=== PATIENT | male | born 1935 | race Caucasian/White ===

== ENCOUNTER 2023-08-30 14:38 | Inpatient (IN) ==
[2023-08-30] MEDS ORDERED: ATROPINE SULFATE 0.1 MG/ML 5ML SYR IV ONE (15:30)
[2023-08-30] MEDS ORDERED: SODIUM CHLORIDE 0.9% 500 ML IV ONE (15:33)
[2023-08-30] MEDS ORDERED: ATROPINE SULFATE 0.1 MG/ML 10ML SYR IV STA (15:33)
--- NOTE | 2023-08-30 15:36 | Emergency Department Note ---
Impression & Plan Syncope, Bradycardia, Atrial fibrillation, SOB (shortness of breath), Fluid overload ED Provider Note NAME: PENNY SORIA AGE: 87 SEX: M : 1935 ARRIVES VIA: Walk-In INFORMANT: [Patient][family] ED PROVIDER(S): [Naman Ochoa MD] CHIEF COMPLAINT: Shortness of breath HISTORY OF PRESENT ILLNESS: The patient is an 87-year-old male who presents with increasing dyspnea over the last 6 months. He does not typically wear oxygen. He has been quite a bit more short of breath the last few days and the family has noticed some pedal edema. Today, he was sitting in the chair and seemed to doze off. The family noticed him shaking as if he was having a seizure. They shook him and he quickly awoke and as per the family, he was confused for a bit after. The patient has no seizure history. He denies any issues with his cardiac rhythm. The patient states that he is on metoprolol, his dose has not changed for a long time. The patient admits to the shortness of breath. He has felt fluttering in his chest from time to time and he has noticed his heart rate has been low on his pulse ox meter. He has not had chest pain. PMHx/PSHx/Social Hx: See Below PHYSICAL EXAM: GENERAL: Patient is in no acute distress. HEENT: No acute trauma, normocephalic atraumatic, mucous membranes moist, no nasal congestion. NECK: No stridor, no adenopathy, no meningismus, trachea is midline. LUNGS: Clear to auscultation bilaterally, no wheeze, no rhonchi, breath sounds equal. HEART: Quite bradycardic and irregular, 2/6 systolic murmur heard. ABDOMEN: Soft, nontender, no peritonitis. EXTREMITIES: No cyanosis, full range of motion of all the joints without pain or difficulty. Moderate bilateral pedal edema NEUROLOGIC: Oriented x 3, no acute motor or sensory deficits, no focal weakness. SKIN: No jaundice, no diaphoresis. Somewhat pale. DIFFERENTIAL DIAGNOSIS: Dysrhythmia, medication reaction, AK, electrolyte imbalance, CHF, pneumonia, anemia, among others. EMERGENCY DEPARTMENT PROCEDURES: MEDICAL DECISION MAKING: There was no leukocytosis. An anemia was noted with a hemoglobin of 11.9. PTT was elevated at 1.5. INR was normal. No renal failure or significant electrolyte abnormality. No concerning liver enzyme elevation. No evidence for pancreatitis. The patient appeared to be in a euthyroid state. BNP was elevated at over 700, consistent with fluid overload. Chest x-ray shows potential mild fluid overload/CHF, no pneumonia. On exam, the patient was significantly bradycardic with episodes of asystole. The patient was aggressively managed. He was moved to a large trauma room. He was given 0.5 mg of IV atropine with significant improvement in the heart rate. Heart rate was noted to be in the 70s to 80s after atropine. ECG shows what appears to be atrial fibrillation, no obvious ischemia. I did speak with Dr. Gonzales of cardiology as well as Dr. Spears of interventional cardiology. Temporary pacemaker placement was discussed but felt unnecessary as he had responded to IV medication. Patient was given 20 mg of IV Lasix to help with his fluid overload. I did speak with the patient and family, I spoke with case management, I did speak with Dr. Ordaz of the ICU. The on-call hospitalist has been consulted. Hopefully, the patient's metoprolol dosing has led to the severe bradycardia and asystole. He may require a pacemaker though if things do not improve with holding the beta-audra therapy. I do not think the patient had a seizure earlier today. I suspect he had a syncopal spell from his severe bradycardia/asystole. Prior/Outside records/notes reviewed: Cardiology note from 01/16/2023 discussing his known coronary artery disease and high cholesterol. Plan was outlined. ECG per my interpretation: Indication was possible seizure. The ECG shows what appears to be atrial fibrillation with diffuse nonspecific ST change. The rate is 60. There is no ST elevation, no PVCs. The QTc is 436. Continuous Cardiac Monitoring per my interpretation: An order was placed for continuous cardiac monitoring. The monitor shows a rate of 78 with atrial fibrillation. Imaging/x-ray results per my interpretation: Chest x-ray shows kyphosis. There was no obvious pneumonia. Some mild fluid overload was thought possible Chronic Medical/Social conditions affecting care: Advanced age. Care/Management discussed with: ICU-Dr. Ordaz, case management and the on-call hospitalist. Dr. Gonzales and Dr. Spears of cardiology. Level of care consideration(s): After review of the information above and other included data: --I believe the patient requires escalation of care to admission Critical Care Note: I have personally spent 55 minutes of critical care time in the direct management of this patient. This includes bedside care, interpretation of diagnostic studies, and testing, discussion with consultants, patient, and family members, and other required patient management activities. This 55 minutes is in excess of all separately billable procedures. DISPOSITION: Admission Past Med/Surg History Medical History Prostate cancer Social History Smoking Status: Never smoker Hx Alcohol Use: Yes Preferred Language: Faroese Feels Safe at Home: Yes Allergies Allergies Allergy/AdvReac Type Severity Reaction Status Date / Time No Known Allergies Allergy Verified 08/30/23 16:35 Home Meds Home Medications Medication Instructions Recorded Confirmed atorvastatin 20 mg tablet 20 mg PO HS 01/16/23 08/30/23 cholecalciferol (vitamin D3) 50 50 mcg PO DAILY 01/16/23 08/30/23 mcg (2,000 unit) capsule finasteride 5 mg tablet 5 mg PO DAILY 01/16/23 08/30/23 lisinopril 10 mg tablet 10 mg PO HS 01/16/23 08/30/23 metoprolol succinate 50 mg 50 mg PO HS 01/16/23 08/30/23 tablet,extended release 24 hr tamsulosin 0.4 mg capsule 0.4 mg PO DAILY 01/16/23 08/30/23 Results & Data (ED) Vital Signs Vital Signs - 24 hr 08/30/23 14:41 08/30/23 14:50 08/30/23 15:16 Temperature 36.4 C L Temperature Source Oral Pulse Rate 65 45 L Pulse Rate from SpO2 Sensor 49 L Respiratory Rate 17 13 Respiratory Effort / Characteristics Non-Labored Spontaneous Respiratory Depth Normal Blood Pressure 137/70 Blood Pressure Mean 92 Blood Pressure Position Sitting Pulse Oximetry 88 L 94 93 Oxygen Delivery Method Room Air Nasal Cannula Oxygen Flow Rate 4 Sepsis Recent Fever Within 48 Hours No Sepsis New/Unexplained Change in Mental Status No Sepsis Action Taken by Nursing No Action Required 08/30/23 15:19 08/30/23 15:21 08/30/23 15:21 Temperature Temperature Source Pulse Rate 53 L 41 L Pulse Rate from SpO2 Sensor 46 L Respiratory Rate 9 L Respiratory Effort / Characteristics Respiratory Depth Blood Pressure 136/90 Blood Pressure Mean 105 Blood Pressure Position Pulse Oximetry 96 Oxygen Delivery Method Oxygen Flow Rate 4 Sepsis Recent Fever Within 48 Hours Sepsis New/Unexplained Change in Mental Status Sepsis Action Taken by Nursing 08/30/23 15:36 08/30/23 15:36 08/30/23 15:40 Temperature Temperature Source Pulse Rate 102 H 96 H 99 H Pulse Rate from SpO2 Sensor Respiratory Rate 29 H 23 Respiratory Effort / Characteristics Respiratory Depth Blood Pressure 137/96 Blood Pressure Mean 109 Blood Pressure Position Pulse Oximetry Oxygen Delivery Method Nasal Cannula Oxygen Flow Rate 4 Sepsis Recent Fever Within 48 Hours Sepsis New/Unexplained Change in Mental Status Sepsis Action Taken by Nursing 08/30/23 15:45 08/30/23 15:47 08/30/23 16:00 Temperature Temperature Source Pulse Rate 88 71 Pulse Rate from SpO2 Sensor 86 74 Respiratory Rate 25 H 27 H Respiratory Effort / Characteristics Respiratory Depth Blood Pressure Blood Pressure Mean Blood Pressure Position Pulse Oximetry 97 97 95 Oxygen Delivery Method Nasal Cannula Oxygen Flow Rate Sepsis Recent Fever Within 48 Hours Sepsis New/Unexplained Change in Mental Status Sepsis Action Taken by Nursing 08/30/23 16:01 08/30/23 16:15 08/30/23 16:30 Temperature Temperature Source Pulse Rate 68 81 75 Pulse Rate from SpO2 Sensor 74 78 77 Respiratory Rate 20 20 23 Respiratory Effort / Characteristics Respiratory Depth Blood Pressure 130/74 128/68 143/82 H Blood Pressure Mean 92 88 102 Blood Pressure Position Pulse Oximetry 98 97 99 Oxygen Delivery Method Nasal Cannula Nasal Cannula Oxygen Flow Rate 4 4 Sepsis Recent Fever Within 48 Hours Sepsis New/Unexplained Change in Mental Status Sepsis Action Taken by Nursing 08/30/23 16:45 08/30/23 17:00 08/30/23 17:15 Temperature Temperature Source Pulse Rate 70 71 69 Pulse Rate from SpO2 Sensor 75 65 Respiratory Rate 32 H 26 H 21 Respiratory Effort / Characteristics Respiratory Depth Blood Pressure 158/79 H Blood Pressure Mean 105 Blood Pressure Position Pulse Oximetry 96 94 Oxygen Delivery Method Nasal Cannula Oxygen Flow Rate 3 Sepsis Recent Fever Within 48 Hours Sepsis New/Unexplained Change in Mental Status Sepsis Action Taken by Nursing 08/30/23 17:15 08/30/23 17:21 08/30/23 17:30 Temperature Temperature Source Pulse Rate 65 52 L Pulse Rate from SpO2 Sensor 56 L Respiratory Rate 28 H Respiratory Effort / Characteristics Respiratory Depth Blood Pressure 144/83 H Blood Pressure Mean 104 Blood Pressure Position Pulse Oximetry 94 Oxygen Delivery Method Oxygen Flow Rate Sepsis Recent Fever Within 48 Hours Sepsis New/Unexplained Change in Mental Status Sepsis Action Taken by Nursing 08/30/23 17:38 08/30/23 17:38 08/30/23 17:45 Temperature Temperature Source Pulse Rate 57 L 58 L Pulse Rate from SpO2 Sensor 54 L 64 Respiratory Rate 23 23 Respiratory Effort / Characteristics Respiratory Depth Blood Pressure 128/74 141/88 H Blood Pressure Mean 104 105 Blood Pressure Position Pulse Oximetry 94 95 Oxygen Delivery Method Oxygen Flow Rate Sepsis Recent Fever Within 48 Hours Sepsis New/Unexplained Change in Mental Status Sepsis Action Taken by Nursing 08/30/23 17:55 08/30/23 18:00 08/30/23 18:01 Temperature Temperature Source Pulse Rate 56 L 61 67 Pulse Rate from SpO2 Sensor 59 L 61 65 Respiratory Rate 24 25 H 26 H Respiratory Effort / Characteristics Respiratory Depth Blood Pressure 141/88 H 135/74 Blood Pressure Mean 105 94 Blood Pressure Position Pulse Oximetry 93 96 95 Oxygen Delivery Method Oxygen Flow Rate Sepsis Recent Fever Within 48 Hours Sepsis New/Unexplained Change in Mental Status Sepsis Action Taken by Nursing 08/30/23 18:15 08/30/23 18:30 Temperature Temperature Source Pulse Rate 57 L 41 L Pulse Rate from SpO2 Sensor 55 L 44 L Respiratory Rate 25 H 21 Respiratory Effort / Characteristics Respiratory Depth Blood Pressure 138/82 131/72 Blood Pressure Mean 100 91 Blood Pressure Position Pulse Oximetry 99 97 Oxygen Delivery Method Nasal Cannula Oxygen Flow Rate 3 Sepsis Recent Fever Within 48 Hours Sepsis New/Unexplained Change in Mental Status Sepsis Action Taken by Custodial Medications Current Medication List: was personally reviewed by me Laboratory Data Attestation: I reviewed the patient's lab results. 08/30/23 15:02 08/30/23 15:02 Lab Results 08/30/23 Range/Units 15:02 WBC 9.10 (4.8-10.8) K/ul RBC 3.89 L (4.70-6.10) M/uL Hgb 11.9 L (14.0-18.0) g/dl Hct 36.6 L (42.0-52.0) % MCV 94.1 (80.0-100.0) fL MCH 30.6 (25.0-34.0) pg MCHC 32.5 (32.0-36.0) g/dL RDW Std Deviation 54.7 H (36.4-46.3) fL RDW Coeff of Alfonso 16.1 H (11.5-14.5) % Plt Count 213 (130-400) K/uL MPV 9.9 (9.4-12.4) fL Immature Gran % (Auto) 0.8 % Neut % (Auto) 82.4 % Lymph % (Auto) 7.0 % [place] % (Auto) 9.3 % Eos % (Auto) 0.3 % Baso % (Auto) 0.2 % Neut # (Auto) 7.49 H (1.40-6.50) K/uL Lymph # (Auto) 0.64 L (1.20-3.40) K/uL [place] # (Auto) 0.85 H (0.11-0.59) K/uL Eos # (Auto) 0.03 (0.00-0.50) K/uL Baso # (Auto) 0.02 (0.00-0.20) K/uL Immature Gran # (Auto) 0.07 (0.01-0.20) K/uL PT 11.6 (9.0-12.0) Seconds INR 1.1 (0.9-1.1) APTT 42.2 H* (21.0-31.0) Seconds PTT Ratio 1.5 Sodium 137 (136-145) mmol/L Potassium 4.2 (3.5-5.1) mmol/L Chloride 99 (98-107) mmol/L Carbon Dioxide 34 H (21-32) mmol/L Anion Gap 4 (3-11) BUN 25 H (6-23) mg/dl Creatinine 0.62 (0.6-1.4) mg/dl Est Cr Clr Drug Dosing Not Reportable Est GFR ( Amer) 102.7 ml/min Est GFR (Non-Af Amer) 88.6 ml/min BUN/Creatinine Ratio 40.3 H (10-20) Glucose 108 H (70-99(Fasting)) mg/dl Calcium 9.9 (8.6-10.3) mg/dl Magnesium 1.8 (1.7-2.4) mg/dl Total Bilirubin 0.5 (0.2-1.0) mg/dl AST 11 L (13-39) U/L ALT 8 (7-52) U/L Alkaline Phosphatase 60 (34-104) U/L Troponin I High Sens 17.9 (0-20) pg/ml B-Natriuretic Peptide 734 H (0-100) pg/ml Total Protein 6.8 (6.0-8.3) gm/dl Albumin 3.8 (3.4-5.0) gm/dl Globulin 3.0 (2.5-4.0) gm/dl Albumin/Globulin Ratio 1.3 (0.9-2) Lipase 10 L (11-82) U/L TSH 1.293 (0.300-4.500) uIu/ml Administered Medications Dobutamine HCl/Dextrose (Dobutamine / D5w) 500 mg in 250 mls @ 6.698 mls/hr IV .Q24H [facility]; Protocol Stop: 09/29/23 15:59 Last Titration: 08/30/23 17:20 Dose: 0 mcg/kg/min, 0 mls/hr Documented By: FLAKITA Co-signed By: ACC Admin: 08/30/23 16:05 Dose: 2.5 mcg/kg/min, 6.7 mls/hr Documented By: FLAKITA Co-signed By: SLB Discontinued Medications Atropine Sulfate (Atropine Sulfate 0.1 Mg/Ml 5ml Syr) Confirm Administered Dose 0.5 mg IV .STK-MED ONE Stop: 08/30/23 15:31 Last Admin: 08/30/23 15:53 Dose: Not Given Documented By: FLAKITA Atropine Sulfate (Atropine Sulfate 0.1 Mg/Ml 10ml Syr) 0.5 mg IV NOW STA Stop: 08/30/23 15:34 Last Admin: 08/30/23 15:35 Dose: 0.5 mg Documented By: FLAKITA Sodium Chloride (Nss) 500 mls @ 999 mls/hr IV .Q31M ONE Stop: 08/30/23 16:03 Last Admin: 08/30/23 17:28 Dose: Not Given Documented By: FLAKITA Magnesium Oxide (Magnesium Oxide 400 Mg Tab) 400 mg PO ONE ONE Stop: 08/30/23 18:08 Last Admin: 08/30/23 18:37 Dose: 400 mg Documented By: FLAKITA Imaging Data Radiologist's Impression: Chest X-Ray 08/30/23 15:33 XR chest 1V portable CLINICAL HISTORY: Chest pain, nonspecific TECHNIQUE: Single frontal radiograph of the chest was obtained. Comparison: None available at the time of this dictation. FINDINGS: No lines and tubes are seen. Cardiomegaly is noted. The aortic arch is calcified. Prominence and cephalization of the vasculature is seen. Lungs are underinflated. No evidence of pleural effusion or pneumothorax. IMPRESSION: Cardiomegaly and mild pulmonary edema. ACT 112: Negative or not required by law. Electronically signed by: Alberto Villalba M.D. 08/30/2023 4:26 PM Discharge Plan Visit Data Chief Complaint: Shortness of Breath/Dyspnea Stated Complaint: SEIZURE, SOB ED Provider: Naman Ochoa Discharge Problem: Syncope, Bradycardia, Atrial fibrillation, SOB (shortness of breath), Fluid overload Patient Disposition: Admitted As Inpatient Condition: Serious Forms Stand Alone Forms: [address] Prescriptions Prescriptions: No Action finasteride 5 mg tablet 5 mg PO DAILY cholecalciferol (vitamin D3) 50 mcg (2,000 unit) capsule 50 mcg PO DAILY metoprolol succinate 50 mg tablet extended release 24 hr 50 mg PO HS lisinopril 10 mg tablet 10 mg PO HS atorvastatin 20 mg tablet 20 mg PO HS tamsulosin 0.4 mg capsule 0.4 mg PO DAILY Referrals Referrals: James Chapman DO [Primary Care Provider] - Discharge Problem: Syncope Qualifiers: Syncope type: unspecified Qualified Code(s): R55 - Syncope and collapse Atrial fibrillation Qualifiers: Atrial fibrillation type: unspecified Qualified Code(s): I48.91 - Unspecified atrial fibrillation Fluid overload Qualifiers: Hypervolemia type: unspecified Qualified Code(s): E87.70 - Fluid overload, unspecified
[2023-08-30 15:52] LABS: Basophils # (auto) 0.02 K/uL (0.00-0.20); Basophils % (auto) 0.2 %; Eosinophils # (auto) 0.03 K/uL (0.00-0.50); Eosinophils % (auto) 0.3 %; Hematocrit (blood only) 36.6 % (42.0-52.0); Hemoglobin 11.9 g/dl (14.0-18.0); Immature Granulocytes # (auto) 0.07 K/uL (0.01-0.20); Immature Granulocytes % (auto) 0.8 %; Lymphocytes # (auto) 0.64 K/uL (1.20-3.40); Mean Corpuscular Hemoglobin 30.6 pg (25.0-34.0); Mean Corpuscular Hgb Conc 32.5 g/dL (32.0-36.0); Mean Corpuscular Volume 94.1 fL (80.0-100.0); Mean Platelet Volume 9.9 fL (9.4-12.4); Monocytes # (auto) 0.85 K/uL (0.11-0.59); Monocytes % (auto) 9.3 %; Neutrophils # (auto) 7.49 K/uL (1.40-6.50); Neutrophils % (auto) 82.4 %; Platelet Count 213 K/uL (130-400); RDW Coefficient of Variation 16.1 % (11.5-14.5); RDW Standard Deviation 54.7 fL (36.4-46.3); Red Blood Count 3.89 M/uL (4.70-6.10)
[2023-08-30] MEDS ORDERED: STAT IV Infusion **Titration per Protocol STA (15:54)
[2023-08-30 15:58] LABS: Alanine Aminotransferase 8 U/L (7-52); Albumin Globulin Ratio 1.3 (0.9-2); Albumin Level 3.8 gm/dl (3.4-5.0); Alkaline Phosphatase 60 U/L (34-104); Anion Gap 4 (3-11); Aspartate Aminotransferase 11 U/L (13-39); BUN Creatinine Ratio 40.3 (10-20); Bilirubin,Total 0.5 mg/dl (0.2-1.0); Blood Urea Nitrogen 25 mg/dl (6-23); Calcium 9.9 mg/dl (8.6-10.3); Carbon Dioxide 34 mmol/L (21-32); Chloride 99 mmol/L (98-107); Est GFR (African American) 102.7 ml/min; Est GFR (Non-African American) 88.6 ml/min; Glucose 108 mg/dl (70-99(Fasting)); Lipase 10 U/L (11-82); Magnesium 1.8 mg/dl (1.7-2.4); Potassium 4.2 mmol/L (3.5-5.1); Sodium 137 mmol/L (136-145); Total Protein 6.8 gm/dl (6.0-8.3)
[2023-08-30] MEDS ORDERED: DOBUTamine / D5W 500mg/250mL Premixed Bag IV PRN (16:00)
[2023-08-30] MEDS ORDERED: DOBUTamine / D5W 500 MG/250 ML BAG IV SCH (16:00)
[2023-08-30 16:03] LABS: Troponin I High Sensitivity 17.9 pg/ml (0-20)
[2023-08-30 16:12] LABS: Thyroid Stimulating Hormone 1.293 uIu/ml (0.300-4.500)
--- NOTE | 2023-08-30 16:27 | XRay Report ---
XR chest 1V portable CLINICAL HISTORY: Chest pain, nonspecific TECHNIQUE: Single frontal radiograph of the chest was obtained. Comparison: None available at the time of this dictation. FINDINGS: No lines and tubes are seen. Cardiomegaly is noted. The aortic arch is calcified. Prominence and ceph alization of the vasculature is seen. Lungs are underinflated. No evidence of pleural effusion or pne umothorax. IMPRESSION: Cardiomegaly and mild pulmonary edema. ACT 112: Negative or not required by law. Electronically signed by: Alberto Villalba M.D. 08/30/2023 4:26 PM
[2023-08-30 16:31] LABS: INR 1.1 (0.9-1.1); Partial Thromboplastin Ratio 1.5; Prothrombin Time 11.6 Seconds (9.0-12.0)
[2023-08-30 16:33] LABS: Partial Thromboplastin Time 42.2 Seconds (21.0-31.0)
[2023-08-30] MEDS ORDERED: FUROSEMIDE INJ 20 MG/2 ML VIAL IV ONE ×2 (16:57→20:15)
--- NOTE | 2023-08-30 17:55 | History & Physical Report ---
Date of Service August 30, 2023 Assessment & Plan (1) Symptomatic bradycardia: Plan: Symptomatic bradycardia Patient with 1 episode of syncope at home, 1 episode of unresponsiveness/syncope while in bed in the ER with heart rate less than 40. 5-second pause while in ER. Received atropine x 1 and was started on dobutamine drip. Family initially concern for seizure-like activity due to shaking, patient improved and was back to normal mentation and less than a minute following his home episode. Suspect this was from bradycardia, no incontinence/tongue biting/postictal state Cardiology consulted. Beta-audra held. Patient with preserved chronotropic response while in the ER. Recommended for beta-audra washout and hoping to avoid pacer/temp wire. Initially started on dobutamine in the ER however underwent an episode of nonsustained V. tach. This was discontinued. Admitted to the ICU, pacer pads in place. A-fib anticoagulation held for potential pacer wire placement. Isoproterenol/dopamine pharmacologic options; however also likely to provoke arrhythmia. Optimize potassium 4.0/magnesium 2.0 - trop wnl. EKG afib w/o ischemic change. Lyme pending (2) S/P CABG (coronary artery bypass graft): Plan: Metoprolol held No stents, patient is not on aspirin at baseline Lisinopril continued Denies hx CHF. BNP 734, 1+ edema. No echo available for review. Echo or dered. Lasix x1 ordered (3) Postoperative atrial fibrillation: Plan: Previously on warfarin for 6 months after his bypass. No recurrence, subsequently taken off of anticoagulation. Patient is in A-fib on admission. Heparin GTT ordered for prophylaxis. (4) Hypercholesterolemia: Plan: Continue atorvastatin (5) Hypertension: Plan: Normotensive. Lisinopril temporarily held. (6) Prostate cancer: Plan: Bladder scan every shift Plan DVT prophylaxis: Heparinized Diet: N.p.o. Disposition: ICU CODE STATUS: DNR/ History of Present Illness Primary Care Provider: DO Joni Dumont is an 87-year-old male with a past medical history of hypertension, CAD s/p CABG, hyperlipidemia, postoperative atrial fibrillation without recurrence not on anticoagulation who presents to the emergency department with progressive dyspnea over several months and who was found in a chair and appeared confused by family upon awakening. He was brought to the ER and was found to have symptomatic bradycardia was given a dose of atropine and subsequently started on a dobutamine drip. This was discontinued when patient had an episode of nonsustained ventricular tachycardia Joni is seen at the bedside. He reports he is at 2 episodes of passing out, 1 at home and 1 in the ER. His family initially thought this was a seizure he does not have history of seizure. They note he was sitting when he suddenly became unresponsive very pale and had extremity shaking. He did not have incontinence. This lasted for about a minute. He then woke up and was mentating normally and less than a minute. Did not have a prolonged episode of confusion. Did not have tongue biting. He has had no chest pain or chest pressure. He reports he has not passed out outside of this. He has had some mild shortness of breath which is improved at time of bedside assessment. He reports he has scoliosis so he has difficulty laying flat and does sometimes get short of breath when laying flat. He denies a history of heart failure, but did have triple bypass in 2015 in [place]. He denies history of stents. He does not take aspirin or blood thinners. 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 He reports he was diagnosed with myasthenia gravis at 1 point, but on follow-up was told that this was either an incorrect diagnosis or in remission and has not needed any treatment for this. He does not notice that repetitive/actions cause fatigue or weakness, has not had weakness chewing, or visual disturbance. Does not have any superior gaze fatiguing While in the ER patient had a 5-second pause. He received atropine and was subsequently started on dobutamine. This improved his heart rate from the 30s to 7080s, but he had a run of nonsustained ventricular tachycardia. Patient was asymptomatic and normotensive during this. Dobutamine was discontinued. While at bedside subsequent on conversation he does have chronotropic response but drops to heart rate of 50s. Cardiology updated, beta-audra held. Patient reports that he would want procedures including a pacemaker or temporary pacing for treatment. He would be okay with defibrillation if he were to return to ventricular tachycardia, but in the event of a complete cardiac arrest he reports he would not want chest compressions or intubation and want to be allowed to pass and notes he also has an advanced directive consistent with this which list DNR/DNI. Family in agreement with this and will continue DNR/DNI. They are aware that he is at a risk of arrhythmia overnight, and that ventricular tachycardia which had occurred earlier with his dobutamine could be life-threatening or fatal. Medical History: Reviewed Medications: Reviewed Surgical History: Reviewed Family history: Reviewed Allergies: Reviewed Social History: Denies tobacco/alcohol Code Status: DNR/DNI Allergies Allergy/AdvReac Type Severity Reaction Status Date / Time No Known Allergies Allergy Verified 08/30/23 16:35 Home Medications Medication Instructions Recorded Confirmed Type atorvastatin 20 mg tablet 20 mg PO HS 01/16/23 08/30/23 History cholecalciferol (vitamin D3) 50 50 mcg PO DAILY 01/16/23 08/30/23 History mcg (2,000 unit) capsule finasteride 5 mg tablet 5 mg PO DAILY 01/16/23 08/30/23 History lisinopril 10 mg tablet 10 mg PO HS 01/16/23 08/30/23 History metoprolol succinate 50 mg 50 mg PO HS 01/16/23 08/30/23 History tablet,extended release 24 hr tamsulosin 0.4 mg capsule 0.4 mg PO DAILY 01/16/23 08/30/23 History Past Med/Surg History Medical History (Updated 08/31/23 @ 10:41 by Jesus Tran MD) Atrial fibrillation Postoperative atrial fibrillation Hypercholesterolemia Hypertension CAD (coronary artery disease) Basal cell carcinoma of skin of nose Myasthenia gravis without (acute) exacerbation Essential (primary) hypertension Atherosclerosis of coronary artery bypass graft(s), unspecified, with other forms of angina pectoris Benign prostatic hyperplasia with lower urinary tract symptoms Prostate cancer Surgical History (Updated 08/31/23 @ 10:41 by Jesus Tran MD) S/P CABG (coronary artery bypass graft) Social History Smoking Status: Never smoker Hx Alcohol Use: Yes Alcohol type: wine Hx Substance Use: No Preferred Language: Namibian Communication Ability: Effective Inside Sales Specialist Required: No Beliefs That Will Affect Care: None Current Living Situation: Spouse Feels Safe at Home: Yes Safety Concerns: Feels Safe At This Time Assistive Devices: BiPap and Glasses Assistive Devices Comment: doesnt wear bipap Physical Exam Physical Exam: General: A&Ox3. NAD. Cooperative. HEENT: Atraumatic, normocephalic. Vision/hearing to Pulm: Diminished, bibasilar crackle. Symmetrical chest rise. No increased work of breathing. No respiratory distress. Cardiac: Irregularly irregular, heart rate ranging from 50s to 60s. Does have chronotropic response with increased to 60s/70s when patient moves in bed. Radial pulses intact and symmetrical. Abdominal: Nontender, nondistended, soft. BS present. Extremities: 1+ pitting edema lower extremities bilaterally Results & Data Results & Data Vital Signs (Past 12 Hours) Vital Signs Temp Pulse Resp BP Pulse Ox O2 Del Method O2 Flow Rate 08/30/23 17:21 65 08/30/23 16:45 70 32 H 158/79 H 96 Nasal Cannula 3 08/30/23 16:30 75 23 143/82 H 99 Nasal Cannula 4 08/30/23 16:15 81 20 128/68 97 08/30/23 16:01 68 20 130/74 98 Nasal Cannula 4 08/30/23 16:00 71 27 H 95 08/30/23 15:47 97 Nasal Cannula 08/30/23 15:45 88 25 H 97 08/30/23 15:40 99 H 23 137/96 Nasal Cannula 4 08/30/23 15:36 96 H 29 H 08/30/23 15:36 102 H 08/30/23 15:21 136/90 08/30/23 15:21 41 L 9 L 96 4 08/30/23 15:19 53 L 08/30/23 15:16 45 L 13 93 08/30/23 14:50 94 Nasal Cannula 4 08/30/23 14:41 36.4 C L 65 17 137/70 88 L Room Air PG Care Time/CCT Total # of Minutes Spent Total Time Spent with Patient: Total time spent is greater than 50% in coordination of care (as documented) at patient's floor/unit and/or counseling patient: Coding Level of Care Code 99196 INT INP/OBS CARE 3/75MIN Diagnoses Symptomatic bradycardia R00.1 S/P CABG (coronary artery bypass graft) Z95.1 Postoperative atrial fibrillation I97.89; I48.91 Hypercholesterolemia E78.00 Hypertension I10 Prostate cancer C61
[2023-08-30] MEDS ORDERED: MAGNESIUM OXIDE 400 MG TAB PO ONE (18:07)
[2023-08-30 19:40] LABS: Lyme Ab IgG w/WB Rflx Negative (Negative); Lyme Ab IgM w/WB Rflx Negative (Negative)
--- NOTE | 2023-08-30 19:42 | Critical Care Consultation ---
Date of Consultation August 30, 2023 Assessment & Plan (1) Bradycardia: (2) Atrial fibrillation: (3) CAD (coronary artery disease): (4) Hypertension: (5) Hypercholesterolemia: (6) Prostate cancer: Plan Reason Critically Ill: 87 YOm admitted to ICU following episode of bradycardia in the EMD followed by ventricular ectopy in setting of inotrope therapy. Noted to be in atrial fibrillation on arrival to EMD and ICU. Neuro - syncope/pre-syncope see below, CAM ICU: Negative - obtain head CT scan with reported episode at home and associated with bradycardia evaluate for intracranial process Cardiac - Afib, bradycardia, syncope, HF unspecified, - Patient with history of postoperative afib and is unknown when he went into atrial fibrillation at this time - This is the likely cause for his symptoms of fatigue, dyspnea, and evidence of heart failure with peripheral edema and pulmonary congestion - currently rate controlled- however with his bradycardia will hold his metoprolol - Initiate heparin infusion for afib- once procedure need/evaluation is completed consider [facility] anticoagulation choice - ECHO in morning For his Bradycardia- hold metoprolol as above, there is no evidence of renal failure or acidosis so this likely not a BRASH syndrome - lyme is pending - but history makes this unlikely as well - follow for symptomatic bradycardia or other arrhythmias- he is compensated currently with his blood pressure- so again would avoid treating hypertension at this time- hold SIMA - if agent needed for symptomatic ana and depending on severity- consider isoproterenol and is severe epinephrine with TPPM available - This also is most likely as well to be cause of his syncope/pre-syncope HF unspecified - Currently appears to be in decompensated biventricular failure with peripheral edema and pulmonary edema- likely secondary to poor tolerance of atria fibrillation and possibly exacerbated by bradycardia - Diurese as hemodynamics allow- BNP 743 on admission - ECHO in morning evaluate EF and valves as well as estimate RVSP Respiratory - MARCE non-compliant with CPAP, Hypoxia without respiratory failure - MARCE- No records for review or noted therapy- he is with elevated HCO3 at 34 - CPAP/BiPAP at night will be offered - Hypoxia- Likely secondary to fluid volume status and cardiac rythm- treat underlying cause GI - No acute need - Low sodium heart healthy diet RENAL/LYTES - No acute needs - Follow renal function and electrolytes - ICU electrolyte protocol - Prostate Cancer history - Has straight cath at home for years, however reports that since adding Proscar and Flomax that this has helped- reports not needing to cath at home for >1month - Attempted to place fuentes catheter- unable to pass - making possibility of possible stricture- penis pump is deflated - he is currently voiding and with residual bladder scan of ~100ml- consider urology consultation ENDO - No acute need - ICU hyperglycemic protocol- Goal BG <180mg/dl - TSH 1.2 HEME - No acute needs ID - No current concern for infectious etiology LINES/IV ACCESS - PIV, Continue use of these lines DVT PROPHYLAXIS - SCDs, Heparin infusion DISPO: ICU until hemodynamics and rhythm proven stable without vasoactive intervention I have personally spent 60 minutes of critical care time in the direct management of this patient. This is a life/limb threatening event. This includes time spent evaluating patient, direct bedside care, chart review, placing orders, interpretation of diagnostic studies, discussion with consultants, patient, and family members, as well as other required patient management activities. This time is exclusive of all separately billable procedures, and teaching time and separate from and in addition to any other critical care service time. Thank you for allowing us to participate in the care of this patient. Please refer to my attending physician's documentation for any further recommendations. Supervising Physician Co-Signing Physician Notes Patient seen and examined. EMR reviewed. Discussed with MARTA and ER staff as well as admitting provider. See my PN from 08/31 for full details. History of Present Illness Reason for Consultation: bradycardia Requesting Physician: Jon Maya MD Attending Physician: Jon Maya MD History of Present Illness 87 YOM with medical history of: Scoliosis, MARCE (non-compliant with CPAP), HTN, CAD with CABG x3 (2015), post-operative Afib, HLD, prostate cancer with self cath at home, ? Myasthenia Gravis diagnosis that was not confirmed per report. Patient came to the EMD today for concerns for increased fatigue and dyspnea and feeling as he is off balance and going to pass out. Reports today that while sleeping there was concern of him shaking and being confused post event, but the shaking episode was easily aborted by startling him awake. Patient reports that this has been ongoing for the past couple of weeks, but symptoms have worsened over the past 2 days in regards to fatigue and dyspnea. He notes that his weight has not gone up at home, but does note increased swelling in his lower legs and socks fitting tighter. Denies cough or fevers or any occurrence of angina/chest pain. Is currently on 2LNC and is not on oxygen at home. In the EMD there was note of bradycardia with reported 5 second pause for which he was given 0.5mg IV Atropine with response to HR and was started on Dobutamine, which then reportedly caused ventricular ectopy, this has since been discontinued. It does not appear that the patient was ever hypotensive by documentation and unclear if his mentation changed with this episode, and appears to be in afib on telemetry and on ECG. Overall the patient currently appears to be have some component of decompensated heart failure, without ischemia noted on his ECG which may be related to his atrial fibrilation. Has not received diuretic the rapy at this time although appears to have been ordered. He is with elevated BNP and negative troponin level. TSH is within normal as well. Patient will be admitted to ICU for close telemetry monitoring with vasoactive support or TPPM placement if needed. Intervention Cardiology appears to have been consulted and discussed case by both EMD and Hospitalist service. CODE: DNR/DNI- For pulseless cardiac arrest - Would be OK with aggressive management for bradycardia/hemodynamic instability to include airway management if needed. Allergies Allergy/AdvReac Type Severity Reaction Status Date / Time No Known Allergies Allergy Verified 08/30/23 16:35 Home Medications Medication Instructions Recorded Confirmed Type atorvastatin 20 mg tablet 20 mg PO HS 01/16/23 08/30/23 History cholecalciferol (vitamin D3) 50 50 mcg PO DAILY 01/16/23 08/30/23 History mcg (2,000 unit) capsule finasteride 5 mg tablet 5 mg PO DAILY 01/16/23 08/30/23 History lisinopril 10 mg tablet 10 mg PO HS 01/16/23 08/30/23 History metoprolol succinate 50 mg 50 mg PO HS 01/16/23 08/30/23 History tablet,extended release 24 hr tamsulosin 0.4 mg capsule 0.4 mg PO DAILY 01/16/23 08/30/23 History Patient History Medical History (Updated 08/30/23 @ 19:42 by KAYCE Sims) Atrial fibrillation Postoperative atrial fibrillation Hypercholesterolemia Hypertension CAD (coronary artery disease) Basal cell carcinoma of skin of nose Myasthenia gravis without (acute) exacerbation Essential (primary) hypertension Atherosclerosis of coronary artery bypass graft(s), unspecified, with other forms of angina pectoris Benign prostatic hyperplasia with lower urinary tract symptoms Prostate cancer Surgical History (Updated 08/30/23 @ 19:37 by KAYCE Sims) S/P CABG (coronary artery bypass graft) Social History Smoking Status: Never smoker Hx Alcohol Use: Yes Alcohol type: wine Hx Substance Use: No Preferred Language: Swedish Communication Ability: Effective Amr Physician Required: No Beliefs That Will Affect Care: None Current Living Situation: Spouse Feels Safe at Home: Yes Safety Concerns: Feels Safe At This Time Assistive Devices: BiPap and Glasses Assistive Devices Comment: doesnt wear bipap Review of Systems Review of Systems: REVIEW OF SYSTEMS: Constitutional: No fever, sweats or chills Eyes: No diplopia, no worsening or blurred vision ENT: normal hearing, no trouble swallowing Respiratory: (+) dyspnea with exertion, No cough, sputum, MARCE Cardiovascular: (+) fatigue, peripheral edema, low HR, No chest pain, tightness or palpitations Abdomen: No pain, nausea, vomiting, diarrhea or constipation Musculoskeletal: (+) scoliosis, ambulatory dysfunction, No joint pain, Neurologic: (+) ambulates with rollator, No focal weakness, numbness/tingling, Psychiatric: No anxiety or depression Skin: No rash or itch Physical Exam Physical Exam: PHYSICAL EXAM: General: awake, alert, no apparent distress Head: Normocephalic, atraumatic ENT: PERRLA, EOMI, no pharyngeal exudate, mucous membranes moist Neuro: AAO x 3, speech clear and appropriate, strength intact bilaterally 5/5, sensation intact and equal all extremities and dermatomes, no pronator drift Chest: equal rise and fall of the chest, no accessory muscle use, decreased in bases with fine crackles bilateral bases, Cardiac: Irregular rate and rhythm, telemetry reviewed- afib, skin warm dry, cap refill <3 seconds, peripheral pulses +2 no JVD, no murmur, no JVD, no edema GI: NABS x 4 quadrants, soft, nontender to palpation, no rebound, guarding or tenderness : Spontaneously voiding, no pain, no CVA tenderness, Extremities: Normal inspection, no peripheral edema or erythema, calfs nontender to palpation Psych: Normal mood and affect Skin: no rash or erythema Results & Data Results & Data Vital Signs (Past 12 Hours) Vital Signs Temp Pulse Resp BP Pulse Ox O2 Del Method O2 Flow Rate 08/30/23 18:30 41 L 21 131/72 97 Nasal Cannula 3 08/30/23 18:15 57 L 25 H 138/82 99 08/30/23 18:01 67 26 H 135/74 95 08/30/23 18:00 61 25 H 96 08/30/23 17:55 56 L 24 141/88 H 93 08/30/23 17:45 58 L 23 141/88 H 95 08/30/23 17:38 128/74 08/30/23 17:38 57 L 23 94 08/30/23 17:30 52 L 28 H 94 08/30/23 17:21 65 08/30/23 17:15 144/83 H 08/30/23 17:15 69 21 94 08/30/23 17:00 71 26 H 08/30/23 16:45 70 32 H 158/79 H 96 Nasal Cannula 3 08/30/23 16:30 75 23 143/82 H 99 Nasal Cannula 4 08/30/23 16:15 81 20 128/68 97 08/30/23 16:01 68 20 130/74 98 Nasal Cannula 4 08/30/23 16:00 71 27 H 95 08/30/23 15:47 97 Nasal Cannula 08/30/23 15:45 88 25 H 97 08/30/23 15:40 99 H 23 137/96 Nasal Cannula 4 08/30/23 15:36 96 H 29 H 08/30/23 15:36 102 H 08/30/23 15:21 136/90 08/30/23 15:21 41 L 9 L 96 4 08/30/23 15:19 53 L 08/30/23 15:16 45 L 13 93 08/30/23 14:50 94 Nasal Cannula 4 08/30/23 14:41 36.4 C L 65 17 137/70 88 L Room Air Laboratory Results Abnormal lab results 08/30/23 Range/Units 15:02 RBC 3.89 L (4.70-6.10) M/uL Hgb 11.9 L (14.0-18.0) g/dl Hct 36.6 L (42.0-52.0) % RDW Std Deviation 54.7 H (36.4-46.3) fL RDW Coeff of Alfonso 16.1 H (11.5-14.5) % Neut # (Auto) 7.49 H (1.40-6.50) K/uL Lymph # (Auto) 0.64 L (1.20-3.40) K/uL Taliaferro # (Auto) 0.85 H (0.11-0.59) K/uL APTT 42.2 H* (21.0-31.0) Seconds Carbon Dioxide 34 H (21-32) mmol/L BUN 25 H (6-23) mg/dl BUN/Creatinine Ratio 40.3 H (10-20) Glucose 108 H (70-99(Fasting)) mg/dl AST 11 L (13-39) U/L B-Natriuretic Peptide 734 H (0-100) pg/ml Lipase 10 L (11-82) U/L Medications Administered Home Medications atorvastatin 20 mg tablet 20 mg PO HS 01/16/23 [History Confirmed 08/30/23] cholecalciferol (vitamin D3) 50 mcg (2,000 unit) capsule 50 mcg PO DAILY [History Confirmed 08/30/23] finasteride 5 mg tablet 5 mg PO DAILY 01/16/23 [History Confirmed 08/30/23] lisinopril 10 mg tablet 10 mg PO HS 01/16/23 [History Confirmed 08/30/23] metoprolol succinate 50 mg tablet,extended release 24 hr 50 mg PO HS 01/16/23 [History Confirmed 08/30/23] tamsulosin 0.4 mg capsule 0.4 mg PO DAILY 01/16/23 [History Confirmed 08/30/23] Active Medications Atorvastatin Calcium (Atorvastatin 20 Mg Tab) 20 mg PO HS GAMAL Stop: 09/29/23 20:59 Finasteride (Finasteride 5 Mg Tab) 5 mg PO DAILY GAMAL Stop: 09/30/23 08:59 Lisinopril (Lisinopril 10 Mg Tab) 10 mg PO HS GAMAL Stop: 09/29/23 20:59 Miscellaneous (Icu Protocol For Hyperglycemia) 1 each N/A ACHS GAMAL Stop: 09/01/23 20:59 Tamsulosin HCl (Tamsulosin Hcl 0.4 Mg Cap) 0.4 mg PO DAILY GAMAL Stop: 09/30/23 08:59 Vitamin D (Cholecalciferol 1,000 Units 25 Mcg Tab) 2,000 units PO DAILY GAMAL Stop: 09/30/23 08:59 ECG Additional Comments: Atrial fibrillation Septal infarct , age undetermined Possible Lateral infarct , age undetermined Abnormal ECG No previous ECGs available Coding Level of Care Code 44325 CRITICAL CARE 1ST 30-74M Diagnoses Bradycardia R00.1 Atrial fibrillation I48.91 Atrial fibrillation type: unspecified CAD (coronary artery disease) I25.10 Hypertension I10 Hypercholesterolemia E78.00 Prostate cancer C61 (2) Atrial fibrillation Atrial fibrillation type: unspecified Qualified Code(s): I48.91 - Unspecified atrial fibrillation
[2023-08-30] MEDS ORDERED: Heparin IV Adult Wt-Based Low-Dose w/ INITIAL Bolus Protocol IV SCH (20:00)
[2023-08-30] MEDS ORDERED: lisinopril 10 MG TAB PO SCH (21:00)
[2023-08-30] MEDS: ATORVASTATIN 20 MG TAB PO SCH (21:43)
[2023-08-30] MEDS: ICU Protocol for HYPERglycemia SCH (21:43)
[2023-08-30] MEDS ORDERED: HEPARIN SOD (PORCINE) 1000 UNIT/ML IV ONE (22:30)
--- NOTE | 2023-08-30 22:58 | CT Scan Report ---
CT SCAN OF THE BRAIN WITHOUT IV CONTRAST CLINICAL HISTORY: Syncope. Change in mental status. COMPARISON STUDY: No priors. TECHNIQUE: Unenhanced axial CT scan of the brain is performed from the vertex to the skull base. A do se lowering technique was utilized adhering to the principles of ALARA. The examination is degraded b y motion artifact. CT DOSE: 703.85 mGy.cm FINDINGS: Brain parenchyma: There is age-related involutional change noting mild subcortical and periventricula r microangiopathic disease. There is no hemorrhage, mass effect, or evidence of acute territorial isc hemia by CT criteria. Rock-white matter differentiation is preserved. No extra-axial fluid collection is seen. Ventricles, sulci, cisterns: Prominent secondary to involutional change. Intracranial vasculature: There is atherosclerotic calcification of the cavernous carotid artery. Calvarium: Unremarkable. Sinuses and mastoids: There is moderate mucosal thickening in the right maxillary antrum. Trace mucos al thickening is seen in the left maxillary sinus. The remaining paranasal sinuses are clear. The mas toid air cells are well pneumatized. Orbits: The bony orbits are grossly intact. There are bilateral ocular lens implants. IMPRESSION: There is no evidence of hemorrhage, mass effect, or acute territorial ischemia by CT stant usha noting a motion degraded examination. ACT 112: Negative or not required by law. Electronically signed by: Naman Byrd M.D. 08/30/2023 10:56 PM
[2023-08-30] MEDS ORDERED: LIDOCAINE 2% JELLY 5 ML TUBE EXT ONE ×2 (23:20)
--- NOTE | 2023-08-30 23:31 | Communication Note ---
Date of Service: August 30, 2023 Patient is voiding with condom catheter on and is with residual of 125-150, he is complaining of some bladder discomfort as needing to force himself to empty bladder. His bladder is not palpably distended and not painful with palpation. Patient originally thought he would feel more comfortable with catheter attempt again. Attempts were made by NIKKO Ulloa as well as myself with Coude 16 and 14 moldovan with in ability to completely pass the catheter through the urethra. At this time we will continue with condom catheter and with bladder scans as not with complete inability void. He was able to pass urine post cath attempts and it was clear. Freddy DEVRIES (ACNP-)
[2023-08-30] MEDS: HEPARIN SODIUM/DEXTROSE 25,000 UNITS/500 ML BAG IV SCH (23:33)
[2023-08-31 04:22] LABS: BUN Creatinine Ratio 31.4 (10-20); Basophils # (auto) 0.02 K/uL (0.00-0.20); Basophils % (auto) 0.2 %; Calcium 10.5 mg/dl (8.6-10.3); Creatinine Clr Calc Pharmacy 72.9 ml/min; Eosinophils # (auto) 0.04 K/uL (0.00-0.50); Eosinophils % (auto) 0.3 %; Est GFR (African American) 97.7 ml/min; Est GFR (Non-African American) 84.3 ml/min; Hematocrit (blood only) 41.6 % (42.0-52.0); Hemoglobin 13.4 g/dl (14.0-18.0); Immature Granulocytes # (auto) 0.07 K/uL (0.01-0.20); Immature Granulocytes % (auto) 0.5 %; Lymphocytes # (auto) 0.62 K/uL (1.20-3.40); Lymphocytes % (auto) 4.7 %; Magnesium 1.9 mg/dl (1.7-2.4); Mean Corpuscular Hemoglobin 29.8 pg (25.0-34.0); Mean Corpuscular Hgb Conc 32.2 g/dL (32.0-36.0); Mean Corpuscular Volume 92.4 fL (80.0-100.0); Mean Platelet Volume 9.9 fL (9.4-12.4); Monocytes # (auto) 1.24 K/uL (0.11-0.59); Monocytes % (auto) 9.4 %; Neutrophils # (auto) 11.15 K/uL (1.40-6.50); Neutrophils % (auto) 84.9 %; Platelet Count 212 K/uL (130-400); Potassium 4.3 mmol/L (3.5-5.1); RDW Coefficient of Variation 15.9 % (11.5-14.5); RDW Standard Deviation 53.7 fL (36.4-46.3); White Blood Count 13.14 K/ul (4.8-10.8)
[2023-08-31 04:45] LABS: Partial Thromboplastin Ratio 2.7
[2023-08-31 05:15] LABS: Partial Thromboplastin Time 75.5 Seconds (21.0-31.0)
[2023-08-31] MEDS: CHOLECALCIFEROL 1,000 UNITS 25 MCG TAB PO SCH (07:22)
[2023-08-31] MEDS: FINASTERIDE 5 MG TAB PO SCH (07:22)
--- NOTE | 2023-08-31 08:05 | Electrocardiogram Report ---
Test Reason : Blood Pressure : / mmHG Vent. Rate : 060 BPM Atrial Rate : 000 BPM P-R Int : 000 ms QRS Dur : 086 ms QT Int : 436 ms P-R-T Axes : 000 016 045 degrees QTc Int : 436 ms Atrial fibrillation Abnormal ECG No previous ECGs available Confirmed by Jesus Tran ([id number]) on 08/31/2023 8:05:31 AM Referred By: REFERRED SELF Confirmed By:Jesus Tran
--- NOTE | 2023-08-31 08:06 | Electrocardiogram Report ---
Test Reason : Blood Pressure : / mmHG Vent. Rate : 046 BPM Atrial Rate : 016 BPM P-R Int : 000 ms QRS Dur : 084 ms QT Int : 436 ms P-R-T Axes : 000 020 035 degrees QTc Int : 381 ms Atrial fibrillation with slow ventricular response Abnormal ECG When compared with ECG of 30-AUG-2023 14:56, HR has decreased by 14 bpm Otherwise no significant change Confirmed by Jesus Tran ([id number]) on 08/31/2023 8:05:57 AM Referred By: REFERRED SELF Confirmed By:Jesus Tran
--- NOTE | 2023-08-31 08:14 | XRay Report ---
XR chest 1V portable HISTORY: shortness of breath COMPARISON: Chest 08/30/2023. FINDINGS: There are low lung volumes. No pneumothorax. Bibasilar densities and small bilateral pleura l effusions persist. The heart remains mildly enlarged. There is diffuse interstitial/vascular thicke ton again noted. This suggests pulmonary edema. IMPRESSION: Low lung volumes with interstitial pulmonary edema and bibasilar densities/effusions. This is similar to the prior study. ACT 112: Negative or not required by law. Electronically signed by: Stoney Schmitz M.D. 08/31/2023 8:13 AM
[2023-08-31] MEDS: ICU Protocol for HYPERglycemia SCH (08:27)
[2023-08-31] MEDS ORDERED: TAMSULOSIN HCL 0.4 MG CAP PO SCH (09:00)
--- NOTE | 2023-08-31 09:53 | Critical Care Progress Note ---
Date of Service August 31, 2023 Assessment & Plan (1) Bradycardia: (2) Atrial fibrillation: (3) CAD (coronary artery disease): (4) Hypertension: (5) Hypercholesterolemia: (6) Prostate cancer: Plan Reason Critically Ill: 87 YOm admitted to ICU following episode of bradycardia in the EMD followed by ventricular ectopy in setting of inotrope therapy. Noted to be in atrial fibrillation on arrival to EMD and ICU. He is now in sinus rhythm. We have been unable to get a Bowman and is complaining of constipation and urinary retention. Recommendations: Neuro -syncope/presyncope: Suspect related to low heart rate. Imaging without finding. Will request PT and OT evaluations. Cardiac -heart failure with fluid overload and symptomatic bradycardia/asystole. He is now off inotropes. Appears improved with treatment from sleep disordered breathing as well as holding his AV sylvie blocking agents. Discussed with cardiology today. They recommend continuing to follow the patient off beta- blockers and will consider him for pacemaker/ablation in the future. Will need continued diuresis and given that he requires additional diuresis, will consult urology for Bowman catheter placement. He was advised that he will likely need to go home with this in place and consider voiding trials in the outpatient setting with his outpatient urologist. Echo pending. Discussed with cardiology. The patient is stable to transfer to the telemetry floor at this point in time. Continue heparin. Restart lisinopril Respiratory -sleep disordered breathing: The patient is open to the prospect of using CPAP at night. Recommend that he use it on a regular basis 8 cm of water and consider repeat outpatient sleep study/sleep evaluation if needed. GI -will add bowel regiment. RENAL/LYTES - No acute needs - Follow renal function and electrolytes - ICU electrolyte protocol -unable to place Bowman catheter and the patient is complaining of bladder discomfort. Consult urology for Bowman catheter placement. ENDO - No acute need - ICU hyperglycemic protocol- Goal BG <180mg/dl - TSH 1.2 HEME - No acute needs ID - No current concern for infectious etiology LINES/IV ACCESS - PIV, Continue use of these lines DVT PROPHYLAXIS - SCDs, Heparin infusion DISPO: Okay to transfer to telemetry Critical care will sign off. Management per hospitalist service and cardiology. Admission and Anticipated Discharge Date Admission Date: August 30, 2023 Subjective Patient seen and examined. EMR reviewed. Discussed with bedside critical care nurse and on multidisciplinary rounds with pharmacy. Patient's main complaints this morning include difficulty voiding with bladder pain and constipation. Nursing has been unable to place a Bowman catheter. He is apparently followed by the urology team at [facility] and has been advised to self cath every few days. He has not been doing it regularly. He is complaining of incomplete voiding and postvoid residuals have demonstrated 2 to 300 cc routinely. He has not had any additional syncope or presyncope. He did have significant sleep disordered breathing identified overnight and was placed on CPAP. The patient has been prescribed CPAP in the outpatient setting however he was noncompliant with it and has not used it in quite some time. He is open to the prospect of revisiting CPAP use. Review of Systems Review of Systems: All systems reviewed & are unremarkable except as noted in Subjective Results & Data Results & Data Vital Signs (Past 12 Hours) Vital Signs Temp Pulse Pulse Resp BP BP Pulse Ox 08/31/23 08:31 08/31/23 08:10 68 19 91 08/31/23 08:10 154/94 H 08/31/23 08:00 71 24 92 08/31/23 08:00 65 08/31/23 07:01 69 21 90 08/31/23 07:01 138/70 08/31/23 07:00 56 L 21 92 08/31/23 06:45 68 22 84 L 08/31/23 06:00 65 24 149/73 H 93 08/31/23 05:18 44 L 23 91 08/31/23 05:18 150/88 H 08/31/23 05:00 56 L 25 H 91 08/31/23 04:01 67 21 95 08/31/23 04:01 159/86 H 08/31/23 04:00 57 L 21 159/86 H 91 08/31/23 03:01 78 26 H 95 08/31/23 03:01 134/71 08/31/23 03:00 67 25 H 95 08/31/23 02:36 43 L 19 93 08/31/23 02:00 36.6 C 59 L 22 116/70 08/31/23 02:00 47 L 22 94 08/31/23 02:00 116/70 08/31/23 01:10 131/53 L 08/31/23 01:10 40 L 18 95 08/31/23 01:00 34 L 20 93 08/31/23 00:01 65 22 94 08/31/23 00:01 145/84 H 08/31/23 00:00 55 L 24 94 08/31/23 00:00 36.6 C 70 19 145/84 H 93 08/30/23 23:00 64 25 H 96 08/30/23 23:00 174/97 H 08/30/23 22:01 58 L 26 H 89 L 08/30/23 22:01 145/90 H 08/30/23 22:00 63 24 98 08/30/23 22:00 36.6 C 65 22 145/90 H 95 O2 Del Method O2 Flow Rate FiO2 08/31/23 08:31 Nasal Cannula 4 08/31/23 08:10 08/31/23 08:10 08/31/23 08:00 Nasal Cannula 4 08/31/23 08:00 08/31/23 07:01 08/31/23 07:01 08/31/23 07:00 08/31/23 06:45 08/31/23 06:00 08/31/23 05:18 08/31/23 05:18 08/31/23 05:00 08/31/23 04:01 08/31/23 04:01 08/31/23 04:00 08/31/23 03:01 08/31/23 03:01 08/31/23 03:00 08/31/23 02:36 30 08/31/23 02:00 BiPAP 08/31/23 02:00 08/31/23 02:00 08/31/23 01:10 08/31/23 01:10 08/31/23 01:00 08/31/23 00:01 08/31/23 00:01 08/31/23 00:00 08/31/23 00:00 BiPAP 08/30/23 23:00 08/30/23 23:00 08/30/23 22:01 08/30/23 22:01 08/30/23 22:00 08/30/23 22:00 BiPAP Critical Care Results & Data Vital Signs (Past 12 Hours) Vital Signs Temp Pulse Pulse Resp BP BP Pulse Ox 08/31/23 08:31 08/31/23 08:10 68 19 91 08/31/23 08:10 154/94 H 11/25/23 08:00 71 24 92 08/31/23 08:00 65 08/31/23 07:01 69 21 90 08/31/23 07:01 138/70 08/31/23 07:00 56 L 21 92 08/31/23 06:45 68 22 84 L 08/31/23 06:00 65 24 149/73 H 93 08/31/23 05:18 44 L 23 91 08/31/23 05:18 150/88 H 08/31/23 05:00 56 L 25 H 91 08/31/23 04:01 67 21 95 08/31/23 04:01 159/86 H 08/31/23 04:00 57 L 21 159/86 H 91 08/31/23 03:01 78 26 H 95 08/31/23 03:01 134/71 08/31/23 03:00 67 25 H 95 08/31/23 02:36 43 L 19 93 08/31/23 02:00 36.6 C 59 L 22 116/70 08/31/23 02:00 47 L 22 94 08/31/23 02:00 116/70 08/31/23 01:10 131/53 L 08/31/23 01:10 40 L 18 95 08/31/23 01:00 34 L 20 93 08/31/23 00:01 65 22 94 08/31/23 00:01 145/84 H 08/31/23 00:00 55 L 24 94 08/31/23 00:00 36.6 C 70 19 145/84 H 93 08/30/23 23:00 64 25 H 96 08/30/23 23:00 174/97 H 08/30/23 22:01 58 L 26 H 89 L 08/30/23 22:01 145/90 H 08/30/23 22:00 63 24 98 08/30/23 22:00 36.6 C 65 22 145/90 H 95 O2 Del Method O2 Flow Rate FiO2 08/31/23 08:31 Nasal Cannula 4 08/31/23 08:10 08/31/23 08:10 08/31/23 08:00 Nasal Cannula 4 08/31/23 08:00 08/31/23 07:01 08/31/23 07:01 08/31/23 07:00 08/31/23 06:45 08/31/23 06:00 08/31/23 05:18 08/31/23 05:18 08/31/23 05:00 08/31/23 04:01 08/31/23 04:01 08/31/23 04:00 08/31/23 03:01 08/31/23 03:01 08/31/23 03:00 08/31/23 02:36 30 08/31/23 02:00 BiPAP 08/31/23 02:00 08/31/23 02:00 08/31/23 01:10 08/31/23 01:10 08/31/23 01:00 08/31/23 00:01 08/31/23 00:01 08/31/23 00:00 08/31/23 00:00 BiPAP 08/30/23 23:00 08/30/23 23:00 08/30/23 22:01 08/30/23 22:01 08/30/23 22:00 08/30/23 22:00 BiPAP Lab & Micro Results (Past 24 Hours) RBC 4.50 M/uL (4.70-6.10) L 08/31/23 WBC 13.14 K/ul (4.8-10.8) H 08/31/23 Hgb 13.4 g/dl (14.0-18.0) L 08/31/23 Hct 41.6 % (42.0-52.0) L 08/31/23 MCV 92.4 fL (80.0-100.0) 08/31/23 MCH 29.8 pg (25.0-34.0) 08/31/23 MCHC 32.2 g/dL (32.0-36.0) 08/31/23 RDW Standard Deviation 53.7 fL (36.4-46.3) H 08/31/23 RDW Coefficient of Variation 15.9 % (11.5-14.5) H 08/31/23 Plt Count 212 K/uL (130-400) 08/31/23 MPV 9.9 fL (9.4-12.4) 08/31/23 Neutrophils (%) (Auto) 84.9 % 08/31/23 Lymphocytes (%) (Auto) 4.7 % 08/31/23 Monocytes # (Auto) 1.24 K/uL (0.11-0.59) H 08/31/23 Eosinophils # (Auto) 0.04 K/uL (0.00-0.50) 08/31/23 Immature Granulocyte % (Auto) 0.5 % 08/31/23 Neutrophils # (Auto) 11.15 K/uL (1.40-6.50) H 08/31/23 Lymphocytes # (Auto) 0.62 K/uL (1.20-3.40) L 08/31/23 Monocytes # (Auto) 1.24 K/uL (0.11-0.59) H 08/31/23 Eosinophils # (Auto) 0.04 K/uL (0.00-0.50) 08/31/23 Basophils # (Auto) 0.02 K/uL (0.00-0.20) 08/31/23 Immature Granulocyte # (Auto) 0.07 K/uL (0.01-0.20) 3 Na 138 mmol/L (136-145) 08/31/23 K 4.3 mmol/L (3.5-5.1) 08/31/23 Cl 99 mmol/L (98-107) 08/31/23 CO2 33 mmol/L (21-32) H 08/31/23 Anion Gap 6 (3-11) 08/31/23 BUN 22 mg/dl (6-23) 08/31/23 Creatinine 0.70 mg/dl (0.6-1.4) 08/31/23 Estimated GFR ( Amer) 97.7 ml/min 08/31/23 Estimated GFR (Non-Af Amer) 84.3 ml/min 08/31/23 BUN/Creatinine Ratio 31.4 (10-20) H 08/31/23 Glu 110 mg/dl (70-99(Fasting)) H 08/31/23 Ca 10.5 mg/dl (8.6-10.3) H 08/31/23 Total Bilirubin 0.5 mg/dl (0.2-1.0) 08/30/23 AST 11 U/L (13-39) L 08/30/23 ALT 8 U/L (7-52) 08/30/23 Alkaline Phosphatase 60 U/L (34-104) 08/30/23 TP 6.8 gm/dl (6.0-8.3) 08/30/23 Albumin 3.8 gm/dl (3.4-5.0) 08/30/23 Globulin 3.0 gm/dl (2.5-4.0) 08/30/23 Albumin/Globulin Ratio 1.3 (0.9-2) 08/30/23 Mg 1.9 mg/dl (1.7-2.4) 08/31/23 03:50 Calcium Level 10.5 mg/dl (8.6-10.3) H 08/31/23 03:50 Prothromb Time International Ratio 1.1 (0.9-1.1) 08/30/23 15:0 2 Diagnostic Findings (Past 24 Hours) Chest X-Ray 08/30/23 15:33 XR chest 1V portable CLINICAL HISTORY: Chest pain, nonspecific TECHNIQUE: Single frontal radiograph of the chest was obtained. Comparison: None available at the time of this dictation. FINDINGS: No lines and tubes are seen. Cardiomegaly is noted. The aortic arch is calcified. Prominence and cephalization of the vasculature is seen. Lungs are underinflated. No evidence of pleural effusion or pneumothorax. IMPRESSION: Cardiomegaly and mild pulmonary edema. ACT 112: Negative or not required by law. Electronically signed by: Alberto Villalba M.D. 08/30/2023 4:[address] 08/30/23 18:49 CT SCAN OF THE BRAIN WITHOUT IV CONTRAST CLINICAL HISTORY: Syncope. Change in mental status. COMPARISON STUDY: No priors. TECHNIQUE: Unenhanced axial CT scan of the brain is performed from the vertex to the skull base. A dose lowering technique was utilized adhering to the principles of ALARA. The examination is degraded by motion artifact. CT DOSE: 703.85 mGy.cm FINDINGS: Brain parenchyma: There is age-related involutional change noting mild subcortical and periventricular microangiopathic disease. There is no h emorrhage, mass effect, or evidence of acute territorial ischemia by CT criteria. Rock-white matter differentiation is preserved. No extra-axial fluid collection is seen. Ventricles, sulci, cisterns: Prominent secondary to involutional change. Intracranial vasculature: There is atherosclerotic calcification of the cavernous carotid artery. Calvarium: Unremarkable. Sinuses and mastoids: There is moderate mucosal thickening in the right maxillary antrum. Trace mucosal thickening is seen in the left maxillary sinus. The remaining paranasal sinuses are clear. The mastoid air cells are well pneumatized. Orbits: The bony orbits are grossly intact. There are bilateral ocular lens implants. IMPRESSION: There is no evidence of hemorrhage, mass effect, or acute territorial ischemia by CT criteria noting a motion degraded examination. ACT 112: Negative or not required by law. Electronically signed by: Naman Byrd M.D. 08/30/2023 10:56 PM Chest X-Ray 08/31/23 07:40 XR chest 1V portable HISTORY: shortness of breath COMPARISON: Chest 08/30/2023. FINDINGS: There are low lung volumes. No pneumothorax. Bibasilar densities and small bilateral pleural effusions persist. The heart remains mildly enlarged. There is diffuse interstitial/vascular thickening again noted. This suggests pulmonary edema. IMPRESSION: Low lung volumes with interstitial pulmonary edema and bibasilar densities/effusions. This is similar to the prior study. ACT 112: Negative or not required by law. Electronically signed by: Stoney Schmitz M.D. 08/31/2023 8:13 AM I & O Totals 24 Hours 08/30/23 08/31/23 09/01/23 06:59 06:59 06:59 Intake Total 112.475 / 112.475 Output Total 1900 / 1900 Balance -1787.525 / -1787.525 Cumulative 08/30/23 14:38 thru 08/31/23 06:00 Intake Total 112.475 Output Total 1900 Balance -1787.525 RT Ventilator Mngmt (Last Documented) Ventilator Ordered Settings Respiratory Rate 19 08/31/23 08:10 Fraction of Inspired Oxygen 30 08/31/23 02:36 Ventilator - PT Measurements Respiratory Rate 19 Coding Level of Care Code 84294 SUB INP/OBS CARE 3/50MIN Diagnoses Bradycardia R00.1 Atrial fibrillation I48.91 Atrial fibrillation type: unspecified CAD (coronary artery disease) I25.10 Hypertension I10 Hypercholesterolemia E78.00 Prostate cancer C61 (2) Atrial fibrillation Atrial fibrillation type: unspecified Qualified Code(s): I48.91 - Unspecified atrial fibrillation
[2023-08-31 10:21] LABS: Appearance Urine Cloudy (Clear); Bilirubin Urine Negative (Negative); Blood Urine 3+ (Negative); Color Urine Yellow; Glucose Urine UA Negative (Negative); Ketones Urine Negative (Negative); Leukocyte Esterase Urine 2+ (Negative); Nitrite Urine Negative (Negative); Protein Urine 3+ (Negative); RBC Urine Automated >30 /hpf (0-4); Urobilinogen Urine Negative (Negative); WBC Urine Automated >30 /hpf (0-5); pH Urine 6.5 (4.5-7.5)
[2023-08-31 10:46] LABS: Bacteria Urine Automated 3+ (Negative)
--- NOTE | 2023-08-31 10:46 | Cardiology Consultation ---
Date of Consultation August 31, 2023 Assessment & Plan (1) Atrial fibrillation with slow ventricular response: (2) Syncope: (3) CAD (coronary artery disease): (4) S/P CABG (coronary artery bypass graft): Plan 87-year-old man with remote CABG and postoperative atrial fibrillation who had been in sinus rhythm but now is admitted with atrial fibrillation with slow ventricular response, dyspnea on exertion, and several syncopal episodes. Currently, he is asymptomatic with reasonable hemodynamics while metoprolol washout continues. No need for emergent pacemaker given improving hemodynamics, overnight he had only transient bradycardia which was asymptomatic. Likely would benefit from permanent pacemaker given still borderline bradycardic heart rate. Anticoagulated with heparin temporarily given likelihood of upcoming procedure (pacemaker placement). No chest pain, troponin negative, no evidence of ongoing myocardial ischemia. Although chest x-ray suggest volume overload, he has no heart failure symptoms and does not routinely take a diuretic. Current management is simply observation off metoprolol, anticoagulation with heparin, with reevaluation regarding need for pacemaker over the next 24 to 48 hours. Will continue to follow and will notify water conservation specialist tomorrow if pacemaker placement on Saturday seems warranted. History of Present Illness Reason for Consultation: Atrial fibrillation/bradycardia Requesting Physician: Obed Jacome MD Attending Physician: Obed Jacome MD History of Present Illness 87-year-old man with history of CAD (CABG times 12/24/2014), paroxysmal atrial fibrillation (metoprolol/not anticoagulated due to remoteness of dysrhythmia), and ambulation limiting kyphoscoliosis, who had several months of dyspnea on exertion and was admitted 08/30/2020 after two syncopal episodes felt secondary to atrial fibrillation with profound bradycardia. He was clinically in sinus rhythm at the time of an office visit with Dr. Gonzales in January 2023, upon admission yesterday he was in atrial fibrillation with a ventricular rate of 60 bpm. Repeat ECG showed atrial fibrillation with rate of 46 bpm, on telemetry overnight he has had brief periods of bradycardia down to 27 bpm but is now predominantly in the 50-60 bpm range. He was on metoprolol 50 mg daily, this was discontinued upon admission. He has had no further presyncope or syncope and has no complaints at rest currently. He denies chest pain at any time and notes no subjective palpitations. Allergies Allergy/AdvReac Type Severity Reaction Status Date / Time No Known Allergies Allergy Verified 08/30/23 16:35 Home Medications Medication Instructions Recorded Confirmed Type atorvastatin 20 mg tablet 20 mg PO HS 01/16/23 08/30/23 History cholecalciferol (vitamin D3) 50 50 mcg PO DAILY 01/16/23 08/30/23 History mcg (2,000 unit) capsule finasteride 5 mg tablet 5 mg PO DAILY 01/16/23 08/30/23 History lisinopril 10 mg tablet 10 mg PO HS 01/16/23 08/30/23 History metoprolol succinate 50 mg 50 mg PO HS 01/16/23 08/30/23 History tablet,extended release 24 hr tamsulosin 0.4 mg capsule 0.4 mg PO DAILY 01/16/23 08/30/23 History Patient History Medical History (Updated 08/31/23 @ 10:41 by Jesus Tran MD) Atrial fibrillation Postoperative atrial fibrillation Hypercholesterolemia Hypertension CAD (coronary artery disease) Basal cell carcinoma of skin of nose Myasthenia gravis without (acute) exacerbation Essential (primary) hypertension Atherosclerosis of coronary artery bypass graft(s), unspecified, with other forms of angina pectoris Benign prostatic hyperplasia with lower urinary tract symptoms Prostate cancer Surgical History (Updated 08/31/23 @ 10:41 by Jesus Tran MD) S/P CABG (coronary artery bypass graft) Social History Smoking Status: Never smoker Hx Alcohol Use: Yes Alcohol type: wine Hx Substance Use: No Preferred Language: Amharic Communication Ability: Effective [employer] Attendant Required: No Beliefs That Will Affect Care: None Current Living Situation: Spouse Feels Safe at Home: Yes Safety Concerns: Feels Safe At This Time Assistive Devices: BiPap and Glasses Assistive Devices Comment: doesnt wear bipap Physical Exam Physical Exam: Elderly white male who appears comfortable currently. BP mildly hypertensive. Pulse 68 bpm and irregular. Skin: no ecchymoses or generalized lesions. HEENT: unremarkable. Neck: JVP at the clavicle at 90 degrees, no carotid bruits. Lungs: Mildly decreased breath sounds but clear. Cardiac: irregular rhythm, normal S1-2, 3/6 apical holosystolic murmur rating to the left sternal border and axilla, no diastolic murmur. Abdomen: benign. Extremities: Trace pretibial edema, pulses intact. Neurologic: normal affect and conversation, nonfocal. Results & Data Laboratory Results Troponin 17.9. WBC 13.14, hemoglobin 13.4, normal platelet count. Normal electrolytes, BUN 22, creatinine 0.7. BNP 734 on admission (no baseline). TSH normal. Diagnostic Findings Chest x-ray showed low lung volumes with interstitial markings increased and bibasilar densities/effusions. No change compared with yesterday. ECGs as noted in HPI. PG Care Time/CCT Total # of Minutes Spent Total Time Spent with Patient: Total time spent is greater than 50% in coordination of care (as documented) at patient's floor/unit and/or counseling patient: Coding Level of Care Code 90423 IN/OBS CONSULT LVL 4,60M Diagnoses Atrial fibrillation with slow ventricular response I48.91 Syncope R55 Syncope type: unspecified CAD (coronary artery disease) I25.10 S/P CABG (coronary artery bypass graft) Z95.1 (2) Syncope Syncope type: unspecified Qualified Code(s): R55 - Syncope and collapse
[2023-08-31] MEDS ORDERED: cefTRIAXone SODIUM 2,000 MG in DEXTROSE 5 % MINI-B 50 ML IV SCH (11:30)
[2023-08-31] MEDS ORDERED: FUROSEMIDE 40 MG/4 ML VIAL IV ONE (11:31)
--- NOTE | 2023-08-31 11:34 | Hospitalist Progress Note ---
Date of Service August 31, 2023 Assessment & Plan (1) Syncope: Plan: Patient with 1 episode of syncope at home, 1 episode of unresponsiveness/syncope while in bed in the ER with heart rate less than 40. 5-second pause while in ER. Received atropine x 1 and was started on dobutamine drip. Lyme negative Suspect hypotensive in setting of bradycardia from a. fib with slow ventricular response Stop lisinopril to enable diuretics to help with pulmonary edema Hold beta blockers Hold further tamsulosin (2) Atrial fibrillation with slow ventricular response: Plan: Previously on warfarin for 6 months after his bypass. No recurrence, subsequently taken off of anticoagulation. Patient is in A-fib on admission. Heparin GTT ordered for prophylaxis. TSH 1.293, TTE without wall motion abnormalities Slow ventricular response with multiple pauses - ventricular ectopy in setting of inotrope therapy. Avoid AV sylvie blocking agents. Anticoagulation with IV heparin - will continue as may need to pause for eventual pacemaker insertion Aim Mg > 2, K > 4 Appreciate cardiology recommendations - monitoring patient off beta-blockers to determine possible need for pacemaker over the next 24-48 hours (3) Acute heart failure with preserved ejection fraction: Plan: TTE with preserved ejection fraction Suspect due to bradycardia and pauses Lasix 20mg IV given on admission, will give additional Lasix 40mg IV today (4) Acute respiratory failure with hypoxia: Plan: Suspect due to pulmonary edema Some concern for pneumonia based on CXR alone however repeat taken this morning and negative procalcitonin goes against this diagnosis. Aim O2 sats > 90% (5) UTI (urinary tract infection): Plan: Possible diagnosis. Certainly at risk with suspected urethral strictures and prior severe infection per patient treated with month of nitrofurantoin earlier this year. WBC this morning may just be stress reaction but also concerning for infection especially with multiple catheter attempts Take blood cultures, CRP/ESR/procalcitonin. Start ceftriaxone pending culture results Follow up with family to try and find result of what the previous organism was - not suspected to be pseudomonas. (6) Benign prostatic hyperplasia with lower urinary tract symptoms: Plan: Hold further tamsulosin to avoid hypotension Can continue finasteride Consult urology for BPH / urethral strictures and inability to place fuentes catheter - no EM and bladder scan without significant urine retention at this time (7) Prostate cancer: Plan: No urinary retention, suspect difficulty urinating due to urethral strictures and agree with urology consult placed by ICU team but no emergent need for fuentes catheter at this time (8) Obstructive sleep apnea: Plan: CPAP HS (9) Essential (primary) hypertension: Plan: Stop lisinopril, metoprolol Lasix 40mg IV now, will dose as BP allows (10) CAD (coronary artery disease): Plan: Unclear why he is not on aspirin, will defer to cardiology Hold BB and lisinopril Continue statin (11) Hypercholesterolemia: Plan: Continue atorvastatin (12) S/P CABG (coronary artery bypass graft): Plan VTE Prophylaxis - IV heparin drip Diet - heart healthy, Low Na, fluid restricted Disposition - stable for transfer to PCU as discussed with Dr Ordaz Admission and Anticipated Discharge Date Admission Date: August 30, 2023 Subjective Reports no dizziness or lightheadedness while lying in bed. Multiple attempts at fuentes catheter insertion overnight which was not successful. He reports difficulty urinary but no dysuria, fever or chills. No respiratory symptoms other than shortness of breath. No chest pain. He reports having a severe urinary infection earlier this year requiring a month of nitrofurantoin - unable to find out information regarding the bacteria at this time. Review of Systems Review of Systems: All systems reviewed & are unremarkable except as noted in HPI & below Physical Exam Constitutional: WD/WN, vitals as above Eyes: PERRL, conjunctivae normal, anicteric sclerae Respiratory: + labored breathing, + uses accessory mu scles and able to speak in complete sentences; expiratory phase not prolonged, no audible wheezes and no stridor Auscultation: + diminished lung sounds; breath sounds present, no crackles, no rales, no rhonchi and no wheezes Cardiovascular: Rate/Rhythm: + bradycardic and + irregularly irregular Heart Sounds: + murmur (apical systolic) Extremities: normal capillary refill and + pedal edema (1+ b/l equal); no calf tenderness Gastrointestinal (Abdomen): normal bowel sounds, soft, nontender, no hepatosplenomegaly Skin: no rashes, warm and dry (no areas of cellulitis noted) Neurologic: moves all extremities and awake; no focal motor deficits and not confused Psychiatric: A+Ox3, euthymic affect Genitourinary: no CVA tenderness Results & Data Results & Data Vital Signs (Past 12 Hours) Vital Signs Temp Pulse Pulse Resp BP BP Pulse Ox 08/31/23 08:31 08/31/23 08:10 68 19 91 08/31/23 08:10 154/94 H 08/31/23 08:00 71 24 92 08/31/23 08:00 65 08/31/23 07:01 69 21 90 08/31/23 07:01 138/70 08/31/23 07:00 56 L 21 92 08/31/23 06:45 68 22 84 L 08/31/23 06:00 65 24 149/73 H 93 08/31/23 05:18 44 L 23 91 08/31/23 05:18 150/88 H 08/31/23 05:00 56 L 25 H 91 08/31/23 04:01 67 21 95 08/31/23 04:01 159/86 H 08/31/23 04:00 57 L 21 159/86 H 91 08/31/23 03:01 78 26 H 95 08/31/23 03:01 134/71 08/31/23 03:00 67 25 H 95 08/31/23 02:36 43 L 19 93 08/31/23 02:00 36.6 C 59 L 22 116/70 08/31/23 02:00 47 L 22 94 08/31/23 02:00 116/70 08/31/23 01:10 131/53 L 08/31/23 01:10 40 L 18 95 08/31/23 01:00 34 L 20 93 08/31/23 00:01 65 22 94 08/31/23 00:01 145/84 H 08/31/23 00:00 55 L 24 94 08/31/23 00:00 36.6 C 70 19 145/84 H 93 O2 Del Method O2 Flow Rate FiO2 08/31/23 08:31 Nasal Cannula 4 08/31/23 08:10 08/31/23 08:10 08/31/23 08:00 Nasal Cannula 4 08/31/23 08:00 08/31/23 07:01 08/31/23 07:01 08/31/23 07:00 08/31/23 06:45 08/31/23 06:00 08/31/23 05:18 08/31/23 05:18 08/31/23 05:00 08/31/23 04:01 08/31/23 04:01 08/31/23 04:00 08/31/23 03:01 08/31/23 03:01 08/31/23 03:00 08/31/23 02:36 30 08/31/23 02:00 BiPAP 08/31/23 02:00 08/31/23 02:00 08/31/23 01:10 08/31/23 01:10 08/31/23 01:00 08/31/23 00:01 08/31/23 00:01 08/31/23 00:00 08/31/23 00:00 BiPAP Laboratory Results Abnormal lab results 08/31/23 08/31/23 08/31/23 Range/Units 03:50 09:36 11:12 WBC 13.14 H (4.8-10.8) K/ul RBC 4.50 L (4.70-6.10) M/uL Hgb 13.4 L (14.0-18.0) g/dl Hct 41.6 L (42.0-52.0) % RDW Std Deviation 53.7 H (36.4-46.3) fL RDW Coeff of Alfonso 15.9 H (11.5-14.5) % Neut # (Auto) 11.15 H (1.40-6.50) K/uL Lymph # (Auto) 0.62 L (1.20-3.40) K/uL [place] # (Auto) 1.24 H (0.11-0.59) K/uL APTT 75.5 H* 47.1 H* (21.0-31.0) Seconds Carbon Dioxide 33 H (21-32) mmol/L BUN/Creatinine Ratio 31.4 H (10-20) Glucose 110 H (70-99(Fasting)) mg/dl Calcium 10.5 H (8.6-10.3) mg/dl C-Reactive Protein (0-0.5) mg/dl Urine Appearance Cloudy A (Clear) Urine Protein 3+ H (Negative) Urine Blood 3+ H (Negative) Ur Leukocyte Esterase 2+ H (Negative) Urine WBC (Auto) >30 H (0-5) /hpf Urine RBC (Auto) >30 H (0-4) /hpf U Epithel Cells (Auto) 10-20 H (0-5) /lpf Urine Bacteria (Auto) 3+ H (Negative) Urine Yeast Budding A (None Prsent) 08/31/23 Range/Units 11:48 WBC (4.8-10.8) K/ul RBC (4.70-6.10) M/uL Hgb (14.0-18.0) g/dl Hct (42.0-52.0) % RDW Std Deviation (36.4-46.3) fL RDW Coeff of Alfonso (11.5-14.5) % Neut # (Auto) (1.40-6.50) K/uL Lymph # (Auto) (1.20-3.40) K/uL [place] # (Auto) (0.11-0.59) K/uL APTT (21.0-31.0) Seconds Carbon Dioxide (21-32) mmol/L BUN/Creatinine Ratio (10-20) Glucose (70-99(Fasting)) mg/dl Calcium (8.6-10.3) mg/dl C-Reactive Protein 2.09 H (0-0.5) mg/dl Urine Appearance (Clear) Urine Protein (Negative) Urine Blood (Negative) Ur Leukocyte Esterase (Negative) Urine WBC (Auto) (0-5) /hpf Urine RBC (Auto) (0-4) /hpf U Epithel Cells (Auto) (0-5) /lpf Urine Bacteria (Auto) (Negative) Urine Yeast (None Prsent) PG Care Time/CCT Total # of Minutes Spent Total Time Spent with Patient: Total time spent is greater than 50% in coordination of care (as documented) at patient's floor/unit and/or counseling patient: Coding Level of Care Code 23223 SUB INP/OBS CARE 3/50MIN Diagnoses Syncope R55 Syncope type: unspecified Atrial fibrillation with slow ventricular response I48.91 Acute heart failure with preserved ejection fraction I50.31 Acute respiratory failure with hypoxia J96.01 UTI (urinary tract infection) N39.0 Benign prostatic hyperplasia with lower urinary tract symptoms N40.1 Prostate cancer C61 Obstructive sleep apnea G47.33 Essential (primary) hypertension I10 CAD (coronary artery disease) I25.10 Hypercholesterolemia E78.00 S/P CABG (coronary artery bypass graft) Z95.1 (1) Syncope Syncope type: unspecified Qualified Code(s): R55 - Syncope and collapse
--- NOTE | 2023-08-31 11:45 | XCELERA ---
[id number]
[2023-08-31] MEDS: SENNA 8.6 MG TAB PO SCH (12:23)
[2023-08-31] MEDS: DOCUSATE SODIUM 100 MG CAP PO SCH ×2 (12:23→20:53)
[2023-08-31 12:45] LABS: Partial Thromboplastin Ratio 1.7
[2023-08-31 12:50] LABS: Partial Thromboplastin Time 47.1 Seconds (21.0-31.0)
--- NOTE | 2023-08-31 17:59 | Urology Consultation ---
Date of Consultation August 31, 2023 Assessment & Plan (1) Benign prostatic hyperplasia with lower urinary tract symptoms: (2) Prostate cancer: (3) Bradycardia: (4) Syncope: (5) Fluid overload: (6) Atrial fibrillation with slow ventricular response: (7) S/P CABG (coronary artery bypass graft): (8) Other fatigue: (9) Symptomatic bradycardia: Plan Patient with acute fluid overload, significant respiratory issue, congestive heart failure, and considerable cardiac history with acute issues. Patient currently on oxygen. Is undergoing supportive care. Has been working with fluid management. Patient has history of prostate cancer with incomplete emptying incontinence and history of previous self-catheterization. Patient has been dealing with incontinence. Have been trying to remove fluid over time. Patient tolerated condom catheter earlier in admission however was no longer successful. Discussed extensively different options. Discussed options with catheter placement. Patient had attempted catheter placement when first admitted with difficulty passing catheter. Patient has complicated urologic history. Is not currently following with urology. No recent imaging. However a renal ultrasound has been ordered by myself will be reviewed and interpreted once available. Patient has been dealing with hypotension has not had significant tachycardia has been mainly dealing with bradycardia. Has mild increase in effort for respirations but no significant tachypnea. Is on nasal cannula with O2 sat of 94% Hemoglobin was 13.4 white count 13.14 creatinine 0.7. All labs and vitals were reviewed pertinent values in the HPI and plan section. Patient complicated medical and surgical history is reviewed and summarized above patient was recently moved from the ICU. Has been slowly progressing. Is undergoing supportive care. Will plan to continue. Discussed catheterization. Extensively reviewed risk benefits and options. Discussed potential concerns and issues. Numerous attempts to place catheter were not able to advance. A significant amount of what appeared to be possibly stricture or other issue was noted. After numerous attempts to pass multiple different catheter types a conversation was had with the patient and family about different options. Patient had unfortunately just eaten dinner and therefore would not be available to go to the OR until approximately 11:30-12 this evening. Discussed possibly waiting however patient would likely have some issues with bleeding and possibly issues with blood in the urine. Would also likely have considerable incontinence issues. Discussed possible bedside procedure. Risk and benefits were extensively reviewed. Patient gave verbal consent due to urgent need for intervention due to concerns about worsening distention. Patient's remain bedside with the patient. Bedside cystoscopy with dilation Procedure performed by: Cristo Wayne II Indications: Acute urinary retention numerous strictures, history of radiation Discussed with patient risks, benefits, and alternatives. These include, but are not limited to, risks of bleeding, infection risks and possible injury to urethra or bladder. Oral consent was obtained prior to the procedure due to urgent need Time Out: Completed, the identity of patient was confirmed via name and date of , by patient and the correct site and the procedure to be performed were confirmed Anesthesia: 1% Viscous Lidocaine gel x 2 Patient was prepped and draped in the usual sterile fashion using: betadine The periurethral area was exposed and lubricated and a flexible cystocope placed. The cystoscope was placed placed into the urethra and advanced to the bulbar urethra. At the bulbar urethra a severe stricture was noted. There was some considerable issues with irritation and likely false passage at the bulbar urethra area. With some manipulation a wire was able to be entered into the lumen and attempts to pass the scope failed to allow the scope to advance within the area. The wire remained and the scope was slowly removed. The scope was then placed next to the wire and advanced. The area of stricture was noted. The entire lumen of the prostatic urethra appeared to be severely strictured with a numerous area of strictured areas noted. The tissue appeared to be severely atrophic with signs of likely radiation induced damage. The wire did appear to go in the lumen well. The area was attempted to be dilated. Gentle dilation was able to be achieved however it was extremely limited due to the thick fibrous/dense scar tissue. The scope was placed a final time the wire appeared to be going within the bladder neck and into the bladder. Visualization was significantly limited of the bladder due to distention from the irrigation as well as the severe limited mobility due to the thin strictures. The wire remained in place. Multiple attempts to pass first a 20 then an 18 [place] catheter over the wire were attempted. A 16 [place] catheter was able to be advanced and able to have the balloon elevated and the bladder drained. The catheter was then attached to drainage. A [place] syringe was utilized to irrigate the bladder. Light red urine was appreciated. The bladder did appear to distend appropriately. When set to drainage the catheter drained well without considerable pain or issues. Throughout the procedure patient had considerable pelvic pressure but did not have severe pain. Patient Status: Tolerated procedure well with minimal discomfort. Vital signs were stable Complications: No complications Patient Instructions: Patient was instructed to monitor and to notify a provider for bleeding, signs and symptoms of UTI, or fevers. Call if any issues. We will plan to maintain catheter for now. Will check a stat renal ultrasound with bladder ultrasound to assess drainage. The bladder neck appeared to be contracted with a very limited bladder volume however this was difficult to assess due to the significant mobility issues. Minor bleeding was noted throughout the procedure as patient had been on a heparin drip. A majority of the scar tissue appeared to have the dense atrophic appearance with limited bleeding within the scar tissue. Did discuss extensively with patient and family that he will likely need further management of this ongoing issue. May need to consider upsizing the catheter in the next day or 2 in order to allow better drainage. Would likely need more formal procedure done in the OR at that time assessing the entire bladder as well as the rest of the urinary system. For now we will plan to maintain the catheter as long as it remains draining well. Will hold the heparin for the next 1 to 2 hours until the imaging is complete and then determine if more urgent intervention is needed otherwise we will plan for observation. History of Present Illness Attending Physician: Obed Jacome MD History of Present Illness Consult for urinary issues with incomplete emptying and possible retention. Patient has mild to moderate discomfort in pelvis and groin going to back and side in waves. Patient has history of prostate cancer. Had previously done self-catheterization. Has had issues with retention and incomplete emptying and bother. Patient is in fluid overload with chronic congestive heart failure and significant cardiac issues at baseline. Has been voiding on his own and was previously using a condom catheter during the early part of the admission. Has had issues with leakage and control. Is dealing with acute illness. Has been deconditioned from this. Has decreased mobility significantly with acute issues. Patient has not had complete return to normal bowel function. Has had some minor urinary issues in the past. Denies bleeding. No severe nausea or vomiting. Currently no fevers. Discussed with patient multifactorial nature of urinary issues, retention, and incomplete bladder emptying. Discussed concerns and issues. Discussed decreased mobility and trouble voiding. Discussed issues related to deconditioning and weakened state. Discussed possibility that patient had more moderate to severe issues and with the acute illness and deconditioning these issues became more prevalent and obvious. Discussed bowel function and possible issues related to decrease in function and its relation to other pelvic organs and systems. Discussed different medications, will use during hospitalization and their effect on ability to empty. Allergies Allergy/AdvReac Type Severity Reaction Status Date / Time No Known Allergies Allergy Verified 08/30/23 16:35 Home Medications Medication Instructions Recorded Confirmed Type atorvastatin 20 mg tablet 20 mg PO HS 01/16/23 08/30/23 History cholecalciferol (vitamin D3) 50 50 mcg PO DAILY 01/16/23 08/30/23 History mcg (2,000 unit) capsule finasteride 5 mg tablet 5 mg PO DAILY 01/16/23 08/30/23 History lisinopril 10 mg tablet 10 mg PO HS 01/16/23 08/30/23 History metoprolol succinate 50 mg 50 mg PO HS 01/16/23 08/30/23 History tablet,extended release 24 hr tamsulosin 0.4 mg capsule 0.4 mg PO DAILY 01/16/23 08/30/23 History Patient History Medical History Atrial fibrillation Postoperative atrial fibrillation Hypercholesterolemia Hypertension CAD (coronary artery disease) Basal cell carcinoma of skin of nose Myasthenia gravis without (acute) exacerbation Essential (primary) hypertension Atherosclerosis of coronary artery bypass graft(s), unspecified, with other forms of angina pectoris Benign prostatic hyperplasia with lower urinary tract symptoms Prostate cancer Surgical History S/P CABG (coronary artery bypass graft) Social History Smoking Status: Never smoker Hx Alcohol Use: Yes Alcohol type: wine Hx Substance Use: No Preferred Language: Mauritian Communication Ability: Effective Title 1 Tutor Required: No Beliefs That Will Affect Care: None Current Living Situation: Spouse Feels Safe at Home: Yes Safety Concerns: Feels Safe At This Time Assistive Devices: BiPap and Glasses Assistive Devices Comment: doesnt wear bipap Review of Systems Review of Systems: All systems reviewed & are unremarkable except as noted in HPI & below Physical Exam Physical Exam: General: Alert with respiratory issue. HEENT: Normocephalic Atraumatic. Inspection normal. Cranial Nerves 2-12 Grossly intact. Nares are clear. Neck is supple. Normal inspection of face. Normal inspection of neck. Neurologic: No deficits on inspection. Baseline for motor function and sensory. Psychologic: Baseline issues with memory/dementia with mild exacerbation Respiratory: Moderate effort with out tachypnea. Cardiovascular: No tachycardia Skin: [place] and Dry. No rashes or visible lesions. Extremities: Moving without issues. No motor deficits on inspection Lymphatics: Significant edema Abdomen: Moderately distended. Mild suprapubic tenderness no rebound or guarding.. : Incontinent Results & Data Vital Signs (Past 12 Hours) Vital Signs Temp Pulse Pulse Resp BP BP Pulse Ox 08/31/23 17:52 89/52 L 08/31/23 17:37 36.5 C 62 16 65/38 L 94 08/31/23 15:59 76 14 92/61 L 93 08/31/23 15:58 48 L 08/31/23 12:00 48 L 21 124/94 94 08/31/23 11:38 68 08/31/23 10:00 53 L 22 93 08/31/23 09:01 142/93 H 08/31/23 09:01 72 24 91 08/31/23 08:31 08/31/23 08:10 68 19 91 08/31/23 08:10 154/94 H 08/31/23 08:00 71 24 92 08/31/23 08:00 65 08/31/23 07:01 69 21 90 08/31/23 07:01 138/70 08/31/23 07:00 56 L 21 92 08/31/23 06:45 68 22 84 L 08/31/23 06:00 65 24 149/73 H 93 O2 Del Method O2 Flow Rate 08/31/23 17:52 08/31/23 17:37 Nasal Cannula 4 08/31/23 15:59 Nasal Cannula 4 08/31/23 15:58 08/31/23 12:00 08/31/23 11:38 08/31/23 10:00 08/31/23 09:01 08/31/23 09:01 08/31/23 08:31 Nasal Cannula 4 08/31/23 08:10 08/31/23 08:10 08/31/23 08:00 Nasal Cannula 4 08/31/23 08:00 08/31/23 07:01 08/31/23 07:01 08/31/23 07:00 08/31/23 06:45 08/31/23 06:00 PG Care Time/CCT Total # of Minutes Spent Total Time Spent with Patient: Total time spent is greater than 50% in coordination of care (as documented) at patient's floor/unit and/or counseling patient: Coding Level of Care Code 16054 INT INP/OBS CARE 3/75MIN Diagnoses Benign prostatic hyperplasia with lower urinary tract symptoms N40.1 Prostate cancer C61 Bradycardia R00.1 Syncope R55 Syncope type: unspecified Fluid overload E87.70 Hypervolemia type: unspecified Atrial fibrillation with slow ventricular response I48.91 S/P CABG (coronary artery bypass graft) Z95.1 Other fatigue R53.83 Symptomatic bradycardia R00.1 (4) Syncope Syncope type: unspecified Qualified Code(s): R55 - Syncope and collapse (5) Fluid overload Hypervolemia type: unspecified Qualified Code(s): E87.70 - Fluid overload, unspecified
[2023-08-31 18:21] LABS: Basophils # (auto) 0.02 K/uL (0.00-0.20); Basophils % (auto) 0.1 %; Eosinophils # (auto) 0.04 K/uL (0.00-0.50); Eosinophils % (auto) 0.2 %; Hematocrit (blood only) 38.5 % (42.0-52.0); Hemoglobin 12.9 g/dl (14.0-18.0); Immature Granulocytes # (auto) 0.09 K/uL (0.01-0.20); Immature Granulocytes % (auto) 0.5 %; Lymphocytes # (auto) 0.64 K/uL (1.20-3.40); Lymphocytes % (auto) 3.7 %; Mean Corpuscular Hemoglobin 30.4 pg (25.0-34.0); Mean Corpuscular Hgb Conc 33.5 g/dL (32.0-36.0); Mean Corpuscular Volume 90.8 fL (80.0-100.0); Mean Platelet Volume 9.6 fL (9.4-12.4); Monocytes # (auto) 1.63 K/uL (0.11-0.59); Monocytes % (auto) 9.5 %; Neutrophils # (auto) 14.69 K/uL (1.40-6.50); Platelet Count 208 K/uL (130-400); RDW Standard Deviation 52.5 fL (36.4-46.3); Red Blood Count 4.24 M/uL (4.70-6.10); White Blood Count 17.11 K/ul (4.8-10.8)
[2023-08-31] MEDS ORDERED: MAGNESIUM SULFATE / D5W 1 GM/100 ML BAG IV ONE (18:21)
[2023-08-31 18:28] LABS: Albumin Globulin Ratio 1.3 (0.9-2); Albumin Level 3.4 gm/dl (3.4-5.0); BUN Creatinine Ratio 35.4 (10-20); Bilirubin,Total 0.5 mg/dl (0.2-1.0); Calcium 9.9 mg/dl (8.6-10.3); Est GFR (African American) 92.9 ml/min; Est GFR (Non-African American) 80.2 ml/min; Globulin 2.7 gm/dl (2.5-4.0); Potassium 3.8 mmol/L (3.5-5.1); Total Protein 6.1 gm/dl (6.0-8.3)
[2023-08-31] MEDS ORDERED: LIDOCAINE 2% JELLY 5 ML TUBE EXT ONE ×2 (19:30→19:31)
[2023-08-31] MEDS ORDERED: POTASSIUM CHLORIDE CRTAB 20 MEQ TABCR PO STA (19:51)
[2023-08-31] MEDS ORDERED: cefTRIAXone SODIUM 350 MG/ML IM IM ONE (20:52)
[2023-08-31] MEDS: ATORVASTATIN 20 MG TAB PO SCH (20:53)
[2023-08-31] MEDS ORDERED: cefTRIAXone SODIUM 350 MG/ML IM IM SCH (22:00)
[2023-08-31] MEDS ORDERED: cefTRIAXone SODIUM 2,000 MG in DEXTROSE 5 % MINI-B 50 ML IV STA (22:07)
[2023-08-31 23:35] LABS: Adenovirus PCR Not Detected (NotDetected); Bordetella parapertussis PCR Not Detected (NotDetected); Bordetella pertussis PCR Not Detected (NotDetected); Chlamydia pneumoniae PCR Not Detected (NotDetected); Coronavirus 229E PCR Not Detected (NotDetected); Coronavirus CoV-2 (COVID19)PCR Not Detected (NotDetected); Coronavirus HKU1 PCR Not Detected (NotDetected); Coronavirus NL63 PCR Not Detected (NotDetected); Coronavirus OC43PCR Not Detected (NotDetected); Human Metapneumovirus PCR Not Detected (NotDetected); Influenza A PCR Not Detected (NotDetected); Influenza B PCR Not Detected (NotDetected); Mycoplasma pneumoniae PCR Not Detected (NotDetected); Parainfluenza Virus 1 PCR Not Detected (NotDetected); Parainfluenza Virus 2 PCR Not Detected (NotDetected); Parainfluenza Virus 3 PCR Not Detected (NotDetected); Parainfluenza Virus 4 PCR Not Detected (NotDetected); Respiratory Syncytial VirusPCR Not Detected (NotDetected); Rhinovirus/Enterovirus PCR Not Detected (NotDetected)
--- NOTE | 2023-09-01 00:18 | Ultrasound Report ---
Exam(s): US RENAL EXAM: US Retroperitoneal Limited, Renal CLINICAL HISTORY: Reason for exam: Retention, Hematuria. TECHNIQUE: Real-time limited ultrasound of the retroperitoneum with image documentation. COMPARISON: No relevant prior studies available. FINDINGS: Right kidney: Right renal cyst projecting exophytically off of the upper pole measuring 1.0 x 2 cm. No stones. No hydronephrosis. Left kidney: Left renal cyst measuring 1.6 x 4 cm. No stones. No hydronephrosis. IMPRESSION: As above Electronically signed by: Sidney Fu MD 09/01/23 00:17 AM
[2023-09-01] MEDS ORDERED: ACETAMINOPHEN 1000 MG/100 ML IV IV ONE (01:08)
[2023-09-01] MEDS: ACETAMINOPHEN 1,000 MG/100 ML VIAL IV PRN ×2 (01:18→22:09)
[2023-09-01 01:19] LABS: Base Excess VBG 12.3 mEq/L; HCO3 VBG 41 mmol/L; Oxygen Saturation VBG < 60.0 %; PCO2 VBG 75 mmHg (38-50); PO2 VBG 27 mmHg; pH VBG 7.35 (7.36-7.41)
[2023-09-01 01:26] LABS: Basophils # (auto) 0.02 K/uL (0.00-0.20); Basophils % (auto) 0.1 %; Eosinophils # (auto) 0.03 K/uL (0.00-0.50); Eosinophils % (auto) 0.2 %; Hematocrit (blood only) 40.3 % (42.0-52.0); Immature Granulocytes # (auto) 0.13 K/uL (0.01-0.20); Immature Granulocytes % (auto) 0.7 %; Lymphocytes # (auto) 0.56 K/uL (1.20-3.40); Lymphocytes % (auto) 3.2 %; Mean Corpuscular Hemoglobin 29.9 pg (25.0-34.0); Mean Corpuscular Hgb Conc 32.3 g/dL (32.0-36.0); Mean Corpuscular Volume 92.6 fL (80.0-100.0); Mean Platelet Volume 9.8 fL (9.4-12.4); Monocytes # (auto) 1.33 K/uL (0.11-0.59); Monocytes % (auto) 7.6 %; Neutrophils # (auto) 15.43 K/uL (1.40-6.50); Neutrophils % (auto) 88.2 %; Platelet Count 206 K/uL (130-400); RDW Coefficient of Variation 15.9 % (11.5-14.5); RDW Standard Deviation 53.7 fL (36.4-46.3); Red Blood Count 4.35 M/uL (4.70-6.10)
--- NOTE | 2023-09-01 01:31 | Communication Note ---
Date of Service: September 01, 2023 This patient had difficult Bowman placement performed by Dr. Wayne earlier this evening. Renal ultrasound was performed that showed no evidence of h ydronephrosis. A code purple was called on this patient due to altered mental status. The patient was complaining of some discomfort in his lower abdomen/suprapubic region. A bladder scan was performed that showed only approximate 30 cc of urine. The Bowman catheter was draining some blood-tinged urine. While at the bedside the RNs flushed and irrigated the patient's catheter. The Bowman tank ter did appear patent. Dr. Wayne was notified of the above and he reviewed the ultrasound and noted that the patient's bladder did not appear to be full. It is unclear if the the patient's change in clinical status was caused by a urologic issue. Dr. Wayne is recommended broadening the patient's antibiotic coverage to cefepime which has been done by the medical service. He is tentatively planned on performing a cystoscopy on this patient on the morning of 09/01/2023. He does note that this procedure can be done on a more emergent basis if the patient becomes hypotensive or febrile. It is nowhere the mention that during this code purple the patient was not hypotensive or febrile. Additional recommendations to be forthcoming
[2023-09-01 01:40] LABS: Albumin Globulin Ratio 1.1 (0.9-2); Albumin Level 3.3 gm/dl (3.4-5.0); Bilirubin,Total 0.7 mg/dl (0.2-1.0); Calcium 9.7 mg/dl (8.6-10.3); Creatinine Clr Calc Pharmacy 57.8 ml/min; Est GFR (African American) 80.5 ml/min; Est GFR (Non-African American) 69.4 ml/min; Globulin 2.9 gm/dl (2.5-4.0); Magnesium 2.1 mg/dl (1.7-2.4); Potassium 4.3 mmol/L (3.5-5.1); Total Protein 6.2 gm/dl (6.0-8.3)
[2023-09-01 01:57] LABS: INR 1.1 (0.9-1.1); Prothrombin Time 12.4 Seconds (9.0-12.0)
--- NOTE | 2023-09-01 02:26 | CT Scan Report ---
Exam(s): CT HEAD Without Contrast EXAM: CT Head Without Intravenous Contrast CLINICAL HISTORY: Reason for exam: change in mental status, off anticoagulation. TECHNIQUE: Axial computed tomography images of the head/brain without intravenous contrast. CTDI is 35.37 mGy and DLP is 702.46 mGy-cm. Automated exposure control was utilized for the study. A dose lowering technique was utilized adhering to the principles of ALARA. COMPARISON: 08/30/2023 FINDINGS: Limitations: Exam limited secondary to patient motion artifact. Brain: No acute intracranial hemorrhage. No acute transcortical infarct. Age-appropriate cerebral volume Loss. Moderate ischemic microangiopathy. Ventricles: Unremarkable. No ventriculomegaly. Bones/joints: Unremarkable. No acute fracture. Soft tissues: Unremarkable. Sinuses: Unremarkable as visualized. No acute sinusitis. Mastoid air cells: Unremarkable as visualized. No mastoid effusion. IMPRESSION: Head CT negative for acute intracranial abnormality. Chronic senescent changes described above Electronically signed by: Sidney Fu MD 09/01/23 02:25 AM
[2023-09-01 06:19] LABS: Hematocrit (blood only) 39.2 % (42.0-52.0); Hemoglobin 12.9 g/dl (14.0-18.0); Mean Corpuscular Hemoglobin 30.2 pg (25.0-34.0); Mean Corpuscular Hgb Conc 32.9 g/dL (32.0-36.0); Mean Corpuscular Volume 91.8 fL (80.0-100.0); Mean Platelet Volume 9.8 fL (9.4-12.4); Platelet Count 203 K/uL (130-400); RDW Coefficient of Variation 16.1 % (11.5-14.5); RDW Standard Deviation 54.1 fL (36.4-46.3); Red Blood Count 4.27 M/uL (4.70-6.10); White Blood Count 19.29 K/ul (4.8-10.8)
[2023-09-01 06:23] LABS: Base Excess ABG 6.8 mEq/L (-9-1.8); HCO3 ABG 34 mmol/L (19-24); Oxygen Saturation ABG 97.8 % (90-95); PCO2 ABG 57 mmHg (35-46); PO2 ABG 82 mmHg (80-95); pH ABG 7.38 (7.35-7.45)
[2023-09-01 06:39] LABS: Allen Test Pos (Pos)
[2023-09-01 06:45] LABS: Basophils # (auto) 0.03 K/uL (0.00-0.20); Basophils % (auto) 0.2 %; Eosinophils # (auto) 0.04 K/uL (0.00-0.50); Eosinophils % (auto) 0.2 %; Immature Granulocytes % (auto) 0.5 %; Lymphocytes % (auto) 1.6 %; Monocytes # (auto) 1.24 K/uL (0.11-0.59); Monocytes % (auto) 6.4 %; Neutrophils # (auto) 17.58 K/uL (1.40-6.50); Neutrophils % (auto) 91.1 %
[2023-09-01 06:46] LABS: Albumin Globulin Ratio 1.2 (0.9-2); Albumin Level 3.4 gm/dl (3.4-5.0); BUN Creatinine Ratio 25.6 (10-20); Bilirubin,Total 0.7 mg/dl (0.2-1.0); Creatinine Clr Calc Pharmacy 38.4 ml/min; Est GFR (African American) 54.9 ml/min; Est GFR (Non-African American) 47.4 ml/min; Globulin 2.8 gm/dl (2.5-4.0); Partial Thromboplastin Ratio 1.4; Partial Thromboplastin Time 39.6 Seconds (21.0-31.0); Potassium 5.4 mmol/L (3.5-5.1); Total Protein 6.2 gm/dl (6.0-8.3)
--- NOTE | 2023-09-01 07:46 | Electrocardiogram Report ---
Test Reason : Blood Pressure : / mmHG Vent. Rate : 055 BPM Atrial Rate : 055 BPM P-R Int : 000 ms QRS Dur : 086 ms QT Int : 428 ms P-R-T Axes : 000 031 062 degrees QTc Int : 409 ms Atrial fibrillation with slow ventricular response Diffuse Minor Nonspecific T wave abnormality Abnormal ECG When compared with ECG of 30-AUG-2023 19:47, No significant change Confirmed by Jesus Tran ([id number]) on 09/01/2023 7:45:31 AM Referred By: REFERRED SELF Confirmed By:Jesus Tran
--- NOTE | 2023-09-01 08:07 | Urology Progress Note ---
Date of Service September 01, 2023 Assessment & Plan (1) Benign prostatic hyperplasia with lower urinary tract symptoms: (2) Prostate cancer: (3) Bradycardia: (4) Syncope: (5) Fluid overload: (6) Atrial fibrillation with slow ventricular response: (7) S/P CABG (coronary artery bypass graft): (8) Other fatigue: (9) Symptomatic bradycardia: (10) Urethral stricture: Plan Patient with significant stricture disease with known history of brachytherapy for prostate cancer. Known history of stricture disease. Had previously used intermittent catheterization at home but had stopped over the last few months as he was voiding without major issue. Patient presented with fluid overload and exacerbation of chronic respiratory and cardiac issues. Patient has been undergoing strict fluid management and had failed multiple attempts at catheterization earlier in the weekend. When patient was moved to the floor where he is having increasing issues with incontinence concern for possible retention. Was bladder scanning for approximately 100 cc however this was likely not reliable secondary to edematous changes as well as a penile implant with a possible reservoir in the suprapubic region. Multiple attempts at catheterization also failed last evening a bedside cysto scopy have been completed and the catheter was able to be placed however only a 16 [place] tip catheter was able to be passed. Patient has had considerable issues. Has had drainage from the catheter but has been very slow with limited urine output. Patient is having pelvic pain discomfort. Had acute exacerbation of respiratory issues overnight with worsening discomfort. Extensively discussed different options with patient and family last evening as well as today. Risk and benefits were extensively reviewed. Risks and benefits discussed at length for procedure. These include bleeding, infection, injury to surrounding tissues or organs, and risks associated with anesthesia. Patient states understanding and agrees to proceed. Will sign consent and proceed. Plan for cystoscopy with possible urethral dilation. Possible clot evacuation. Admission and Anticipated Discharge Date Admission Date: August 30, 2023 Subjective Patient admitted cardiac disease, respiratory failure, and fluid overload. Was having severe incontinence issues has long history of urologic issues follows with Dr. Whitley for issues related to stricture and incomplete emptying. Patient is afebrile. Patient was transferred from the intensive unit to the floor and were trying to closely monitor fluid output. Multiple attempts to intermittent cath failed patient's family had even attempted has patient has previously done it. Multiple attempts the prior day to try to get catheter had failed. Patient had not tolerated the condom catheter. Patient had catheter placed last evening while using a bedside scope in order to place the catheter. Only a 16 [place] catheter was able to be placed. Has been having increasing issues with it. Has not developed severe vomiting or other issues. Has not experienced fever or chills. Is currently NPO. Has noticed some frequency and urgency. Has been having increasing pelvic pain. Patient has symptomatic bradycardia at baseline. Has been dealing with some issues related to hypotension. Has not had severe pain in the back and flank. Does have occasional burning and irritation. No severe episodes or major changes. Was on heparin drip this is being held this morning. Mild hematuria after the dilation and cystoscopy last evening. Review of Systems Review of Systems: All systems reviewed & are unremarkable except as noted in HPI & below Physical Exam Physical Exam: General: Alert and Oriented x 3 in no acute distress. HEENT: Normocephalic Atraumatic. Inspection normal. Cranial Nerves 2-12 Grossly intact. Normal inspection of face. Normal inspection of neck. Psychologic: Pretty Affect Respiratory: Tachypnea with chronic respiratory issues Cardiovascular: No tachycardia Skin: [place] and Dry. No rashes or visible lesions. Extremities/Lymphatics: Edema due secondary to cardiac issues/heart failure Abdomen: Moderately distended. No rebound or guarding. Suprapubic tenderness. : Bowman catheter in place draining light red urine. Results & Data Vital Signs (Past 12 Hours) Vital Signs Temp Pulse Pulse Resp BP Pulse Ox O2 Del Method 09/01/23 07:38 79 27 H 92 09/01/23 03:39 36.7 C 69 16 89/60 L 93 CPAP 09/01/23 02:09 71 22 94 08/31/23 22:57 36.3 C L 62 18 92/59 L 95 CPAP 08/31/23 22:48 67 21 96 08/31/23 21:55 78 FiO2 09/01/23 07:38 30 09/01/23 03:39 09/01/23 02:09 30 08/31/23 22:57 08/31/23 22:48 30 08/31/23 21:55 PG Care Time/CCT Total # of Minutes Spent Total Time Spent with Patient: Total time spent is greater than 50% in coordination of care (as documented) at patient's floor/unit and/or counseling patient: Coding Level of Care Code 06351 SUB INP/OBS CARE 3/50MIN Diagnoses Benign prostatic hyperplasia with lower urinary tract symptoms N40.1 Prostate cancer C61 Bradycardia R00.1 Syncope R55 Syncope type: unspecified Fluid overload E87.70 Hypervolemia type: unspecified Atrial fibrillation with slow ventricular response I48.91 S/P CABG (coronary artery bypass graft) Z95.1 Other fatigue R53.83 Symptomatic bradycardia R00.1 Urethral stricture N35.919 (4) Syncope Syncope type: unspecified Qualified Code(s): R55 - Syncope and collapse (5) Fluid overload Hypervolemia type: unspecified Qualified Code(s): E87.70 - Fluid overload, unspecified
--- NOTE | 2023-09-01 08:18 | Anesthesiology Consultation ---
Date of Service September 01, 2023 Assessment & Plan Chart Review Chart Review: Acceptable Risk for Surgery and Patient NOT seen in Pre Admission Testing Consults Requested none ASA [id number] Proposed Anesthesia Anesthesia Type: MAC History Surgery Operation Date: 09/01/23 09:00 Proposed Procedures p Cystoscopy Retrograde - Cristo Wayne DO Height/Weight Height: 5 ft 9 in Weight: 83.6 kg Allergies Allergy/AdvReac Type Severity Reaction Status Date / Time No Known Allergies Allergy Verified 08/30/23 16:35 Medications Home Medications Medication Instructions Recorded Confirmed Last Taken atorvastatin 20 mg tablet 20 mg PO HS 01/16/23 08/30/23 08/29/23 cholecalciferol (vitamin D3) 50 50 mcg PO DAILY 01/16/23 08/30/23 08/30/23 mcg (2,000 unit) capsule finasteride 5 mg tablet 5 mg PO DAILY 01/16/23 08/30/23 08/30/23 lisinopril 10 mg tablet 10 mg PO HS 01/16/23 08/30/23 08/29/23 metoprolol succinate 50 mg 50 mg PO HS 01/16/23 08/30/23 08/29/23 tablet,extended release 24 hr tamsulosin 0.4 mg capsule 0.4 mg PO DAILY 01/16/23 08/30/23 08/30/23 Active Medications Generic Name Dose Route Start Last Admin Trade Name Freq PRN Reason Stop Dose Admin Atorvastatin Calcium 20 mg 08/30/23 21:00 08/31/23 20:53 Atorvastatin 20 Mg Tab PO 09/29/23 20:59 20 mg HS GAMAL Administration Docusate Sodium 100 mg 08/31/23 10:00 08/31/23 20:53 Docusate Sodium 100 Mg Cap PO 09/30/23 09:59 100 mg BID GAMAL Administration Finasteride 5 mg 08/31/23 09:00 08/31/23 07:22 Finasteride 5 Mg Tab PO 09/30/23 08:59 5 mg DAILY GAMAL Administration Heparin Sodium/Dextrose 25,000 units in 500 mls @ 0 mls/hr 08/30/23 22:30 08/31/23 19:26 Heparin Sodium/Dextrose IV 09/29/23 22:29 0 units/hr .Q0M GAMAL 0 mls/hr Titration Protocol 0 UNITS/HR Acetaminophen 1,000 mg in 100 mls @ 400 mls/hr 09/01/23 01:04 09/01/23 01:35 Ofirmev IV 09/04/23 01:03 Infused Q8H PRN Infusion fever or pain Sennosides 8.6 mg 08/31/23 10:00 08/31/23 12:23 Senna 8.6 Mg Tab PO 09/30/23 09:59 8.6 mg QAM GAMAL Administration Tamsulosin HCl 0.4 mg 08/31/23 09:00 08/31/23 07:22 Tamsulosin Hcl 0.4 Mg Cap PO 09/30/23 08:59 0.4 mg DAILY GAMAL Administration Vitamin D 2,000 units 08/31/23 09:00 08/31/23 07:22 Cholecalciferol 1,000 Units 25 Mcg Tab PO 09/30/23 08:59 2,000 units DAILY GAMAL Administration Past Medical History Medical History Atrial fibrillation Postoperative atrial fibrillation Hypercholesterolemia Hypertension CAD (coronary artery disease) Basal cell carcinoma of skin of nose Myasthenia gravis without (acute) exacerbation Essential (primary) hypertension Atherosclerosis of coronary artery bypass graft(s), unspecified, with other forms of angina pectoris Benign prostatic hyperplasia with lower urinary tract symptoms Prostate cancer Hyperkalemia EM Syncope CHF/interstitial pulmonary edema Exercise / Class Metabolic Activity III < 4 Walking/Shop/Light housework Past Surgical History Surgical History S/P CABG (coronary artery bypass graft) Past Anesthesia History No Hx of Anesthesia Complications and No Family Hx of Anesthesia Complications History of PONV No Hx of PONV and No Hx of Motion Sickness Social History Smoking Status: Never smoker Hx Alcohol Use: Yes Alcohol type: wine Alcohol Intake Frequency Comment: has 2 drinks per year Hx Substance Use: No Physical Exam Vital Signs Last Vital Signs Temp 36.8 C 09/01/23 08:15 Pulse 86 09/01/23 08:15 Resp 18 09/01/23 08:15 BP 97/53 L 09/01/23 08:15 Pulse Ox 92 09/01/23 08:15 O2 Del Method BiPAP 09/01/23 08:15 O2 Flow Rate 4 08/31/23 19:49 FiO2 30 09/01/23 07:38 Testing Laboratory Results 09/01/23 05:51 09/01/23 05:51 PT 12.4 Seconds (9.0-12.0) H 09/01/23 01:09 INR 1.1 (0.9-1.1) 09/01/23 01:09 APTT 39.6 Seconds (21.0-31.0) H 09/01/23 05:51 Urine Color Yellow 08/31/23 09:36 Urine Appearance Cloudy (Clear) A 08/31/23 09:36 Urine pH 6.5 (4.5-7.5) 08/31/23 09:36 Ur Specific [place] 1.010 (1.000-1.030) 08/31/23 09:36 Urine Protein 3+ (Negative) H 08/31/23 09:36 Urine Glucose (UA) Negative (Negative) 08/31/23 09:36 Urine Ketones Negative (Negative) 08/31/23 09:36 Urine Nitrite Negative (Negative) 08/31/23 09:36 Ur Leukocyte Esterase 2+ (Negative) H 08/31/23 09:36 Urine WBC (Auto) >30 /hpf (0-5) H 08/31/23 09:36 Urine RBC (Auto) >30 /hpf (0-4) H 08/31/23 09:36 U Hyaline Cast (Auto) 1-5 /lpf (0-5) 08/31/23 09:36 U Epithel Cells (Auto) 10-20 /lpf (0-5) H 08/31/23 09:36 Urine Bacteria (Auto) 3+ (Negative) H 08/31/23 09:36 09/01/23 00:41 POC Glucose 101 H Electrocardiogram Date: 08/31/23 Findings: + AFIB @ (@ 55 w/ slow ventricular response;diffuse minor non specific T wave abnormalities) Chest X-Ray Date: 08/31/23 Findings: + cardiomegaly and + pulmonary vascular congestion (interstitial pumonary edema and bibasilar densities) Echocardiogram Date: 08/31/23 EF: 55% LV Function: normal RWMA: + none Other Findings: + atrial enlargement (LA-mildly dilated) and + LVH (mild) Valvular Disease: + MR (moderate - severew/ eccentric posterior directed regurgitant jet) CO-mild RV systolic pressure=50-60
[2023-09-01] MEDS: CEFEPIME 2,000 MG in SYRINGE 0 ML IV SCH ×2 (08:39→22:18)
[2023-09-01] MEDS ORDERED: CEFEPIME 2,000 MG in SYRINGE 0 ML IV SCH (08:45)
[2023-09-01] MEDS ORDERED: fentaNYL citrate PF 100 MCG/2 ML VIAL ONE (09:02)
[2023-09-01] MEDS ORDERED: LIDOCAINE 2% 2 ML VIAL/AMP(20MG/ML) INFIL ONE (09:06)
[2023-09-01] MEDS ORDERED: PROPOFOL IV EMULSION 10 MG/ML 20 ML VIAL IV ONE (09:06)
[2023-09-01] MEDS ORDERED: PHENYLEPHRINE 100MCG/ML 10ML SYR IV ONE (09:07)
[2023-09-01] MEDS ORDERED: ONDANSETRON INJ 2 MG/ML 2 ML VIAL ONE (09:07)
[2023-09-01] MEDS ORDERED: ePHEDrine sulfate 50 MG/ML AMP IV PRN (09:17)
[2023-09-01] MEDS ORDERED: ATROPINE SULFATE 0.1 MG/ML 10ML SYR IV PRN (09:17)
[2023-09-01] MEDS ORDERED: PHENYLEPHRINE HCL 10 MG/ML VIAL ONE (09:51)
[2023-09-01] MEDS ORDERED: FUROSEMIDE 40 MG/4 ML VIAL IV ONE (09:54)
--- NOTE | 2023-09-01 10:09 | Operative Report ---
PG Post Operative Report Pre & Post Diagnosis Operation Date: 09/01/23 09:00 Pre-Op Diagnosis: Urethral stricture Post-Op Diagnosis: Urethral stricture I identified the patient and participated in the time-out.: Yes Procedure Operation Date: 09/01/23 09:00 Actual Procedures p Cystoscopy with multiple Urethral Dilations, Irrigation of bladder. Aspiration of urine. Difficult catheter placement over wire. (Not Applicable) - Cristo Wayne, Surgeon Cristo Wayne, II, DO Change Of Address Clerk None Estimated Blood Loss 1 Findings Consistent with Post-Op Diagnosis Numerous strictures along the urethra. Distal urethra was gently dilated sequentially. Severe stricture at the bulbar urethra with large false passage from the repeated catheter attempts over the last few days. Severe fibrous scar tissue development within the prostatic urethra. 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 Specimens Aspiration of cytology from bladder -bladder washing for cytology Drains 20 [place] tip catheter Anesthesia Type MAC Complications none Disposition Disposition: Recovery Room Indications Patient with concern for urethral stricture with history of prostate cancer and brachytherapy. Attempted catheter placement with subsequent bedside placement of catheter with scope after dilation. Inadequate drainage from current catheter. Risks and benefits discussed at length. Description of Procedure Patient was consented and brought back to the operating room. Patient was placed under anesthesia in the supine position and moved to the dorsal lithotomy position. Patient was prepped and draped in the regular sterile fashion. A time out was completed. The meatus was dilated due to narrowing. A 30 degree Cystoscope was placed into the urethra. The scope was advanced and a significant narrowing/stricture was discovered in the urethra. The distal urethra was sequentially dilated. A large false passage had been created in the bulbar urethra just distal to a severe pinpoint stricture within the bulbar urethra. It appeared to have been partially dilated likely with the bedside procedure last evening. A wire was able to cannulate the opening. With the wire in place the severe stricture was then dilated. The prostate was found to be severely fibrotic with significant scarring. Multiple areas of irritation were noted. The prostatic urethra was largely open. The bladder neck as well was open. No sign of bladder neck contracture or other major issue. Within the bladder there was a large amount of debris. 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 Large scalelike flaky lining tissue and debris was noted. No significant bleeding was noted within the bladder. The flexible wire was then repositioned in the bladder. The bladder was irrigated numerous times. After extensive irrigation. And removal of a large amount of debris from the bladder the bladder was inspected a second time. The UOs were unable to be identified due to the significant changes in the bladder. 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 There is no active areas of bleeding. There is no other obvious lesion or mass. The nearly entire bladder was found to have significant lesions throughout it. Saline was then placed into the bladder and the bladder was washed. A aspiration was then taken from the bladder and sent for cytology. The scope was slowly removed. The area of dilation was inspected. The dilation was overall successful. The channel did appear open. The large area of false passage was found to be inflamed likely the portion of the proximal pendulous urethra. False passage was only noted at the 6 o'clock position. No other major areas of concern or other issues within the urethra. The patient was noted to have significant penoscrotal edema before the case had begun. This did mildly worsen due to significant manipulation on the groin during the procedure. With the wire in place a 20 [place] tip catheter was then placed. Urine was immediately received. The balloon was elevated without major issue. The bladder was then drained. A scrotal support was then placed due to the edematous changes in the groin. The patient was cleaned, aroused from anesthesia, and transferred to the pacu in stable condition having tolerated the procedure well with no complications. I was present and participated in all aspects of the procedure. The patient will be monitored in the PACU until transferred. Catheter will remain until followup for removal with his home urologist. Will await results of the aspiration. Will plan to allow adequate time for healing. Patient will likely continue on broad-spectrum antibiotics. Is already admitted to the telemetry floor will be monitored closely. Patient did not have significant bleeding within the bladder bladder neck prostate or the majority of the urethra. Only a very mild amount of bleeding was noted from the area of false passage. The patient will likely be able to initiate heparin therapy without major issue. Should also be able to tolerate Lasix for the significant fluid overload issues including the penoscrotal edema. Patient is okay to utilize ice rest and elevation for the scrotal edema issues. Will plan to continue to monitor. I attest to the content of the Intraoperative Record and any orders documented therein. Any exceptions are noted below.
--- NOTE | 2023-09-01 10:57 | Anesthesiology Progress Note ---
Date of Service September 01, 2023 Anesthesia Post Procedure Vital Signs Vital Signs: Temp Pulse Pulse Resp BP BP BP 09/01/23 10:35 36.4 C L 85 24 89/55 L 09/01/23 10:25 88 22 94/51 L 09/01/23 10:15 99 H 24 92/50 L 09/01/23 10:08 36.8 C 95 H 20 97/56 L 09/01/23 08:15 36.8 C 86 18 97/53 L 09/01/23 07:38 79 27 H 09/01/23 03:39 36.7 C 69 16 89/60 L 09/01/23 02:09 71 22 08/31/23 22:57 36.3 C L 62 18 92/59 L 08/31/23 22:48 67 21 08/31/23 21:55 78 08/31/23 19:49 08/31/23 19:21 37.1 C 42 L 18 110/69 08/31/23 17:54 08/31/23 17:52 89/52 L 08/31/23 17:37 36.5 C 62 16 65/38 L 08/31/23 15:59 76 14 92/61 L 08/31/23 15:58 48 L 08/31/23 12:00 48 L 21 124/94 08/31/23 11:38 68 Pulse Ox O2 Del Method O2 Flow Rate FiO2 09/01/23 10:35 90 Nasal Cannula 5 09/01/23 10:25 93 Oxymask 7 09/01/23 10:15 93 Oxymask 13 09/01/23 10:08 90 Oxymask 13 09/01/23 08:15 92 BiPAP 09/01/23 07:38 92 30 09/01/23 03:39 93 CPAP 09/01/23 02:09 94 30 08/31/23 22:57 95 CPAP 08/31/23 22:48 96 30 08/31/23 21:55 08/31/23 19:49 Nasal Cannula 4 08/31/23 19:21 97 Nasal Cannula 4 08/31/23 17:54 Nasal Cannula 4 08/31/23 17:52 08/31/23 17:37 94 Nasal Cannula 4 08/31/23 15:59 93 Nasal Cannula 4 08/31/23 15:58 08/31/23 12:00 94 11/25/23 11:38 Transfer of Care Handoff Completed per policy Notes Mental Status: alert / awake / arousable Patient Amnestic to Procedure: Yes Nausea / Vomiting: adequately controlled Pain: adequately controlled Airway Patency, RR, SpO2: stable & adequate BP & HR: stable & adequate Hydration State: stable & adequate Anesthetic Complications: no major complications apparent
[2023-09-01] MEDS ORDERED: MIDAZOLAM HCL 5 MG/ML 2ML VIAL IV ONE (11:15)
[2023-09-01] MEDS ORDERED: SUCCINYLCHOLINE CHLORIDE 20 MG/ML 10 ML VIAL IV ONE (11:15)
[2023-09-01] MEDS ORDERED: fentaNYL citrate PF 100 MCG/2 ML VIAL IV ONE (11:15)
[2023-09-01] MEDS ORDERED: ETOMIDATE 2 MG/ML 20 ML VIAL IV ONE (11:15)
[2023-09-01 13:04] LABS: Calcium 9.3 mg/dl (8.6-10.3); Potassium 4.7 mmol/L (3.5-5.1)
[2023-09-01 13:10] LABS: BUN Creatinine Ratio 29.9 (10-20); Creatinine Clr Calc Pharmacy 43.6 ml/min; Est GFR (African American) 64.1 ml/min; Est GFR (Non-African American) 55.3 ml/min
--- NOTE | 2023-09-01 13:39 | XRay Report ---
XR chest 1V portable CLINICAL HISTORY: hypoxia TECHNIQUE: Single frontal radiograph of the chest was obtained. Comparison: Comparison is made to chest radiograph 08/31/2023 FINDINGS: No lines and tubes are seen. The cardiomediastinal silhouette is stable. Lungs are underinflated with a left retrocardiac airspace opacity. Previously noted pulmonary edema has resolved. No evidence of pleural effusion or pneumothorax. IMPRESSION: Left retrocardiac airspace opacity which may represent atelectasis, pneumonia, and/or aspiration. ACT 112: Negative or not required by law. Electronically signed by: Alberto Villalba M.D. 09/01/2023 1:38 PM
[2023-09-01 13:43] LABS: iSTAT Arterial Blood Gas HCO3 36 meg/L (19-24); iSTAT Arterial Blood Gas pCO2 111 mmHg (35-46); iSTAT Arterial Blood Gas pH 7.12 (7.35-7.45); iSTAT Arterial Blood Gas pO2 97 mmHg (80-95); iSTAT Carbon Dioxide > 40 mmol/L (24-31); iSTAT Hematocrit 37 % (42-52); iSTAT Hemoglobin 12.6 g/dl (14.0-18.0); iSTAT Potassium 4.8 mmol/L (3.3-5.0); iSTAT Sodium 136 mmol/L (135-144)
--- NOTE | 2023-09-01 13:46 | Cardiology Progress Note ---
Date of Service September 01, 2023 Assessment & Plan (1) Atrial fibrillation with slow ventricular response: (2) Syncope: (3) CAD (coronary artery disease): (4) S/P CABG (coronary artery bypass graft): Plan 87-year-old man with remote CABG and postoperative atrial fibrillation who had been in sinus rhythm but who was admitted 08/30/2023 with atrial fibrillation with slow ventricular response, dyspnea on exertion, and several syncopal episodes. Despite several episodes of bradycardia and brief pauses, he has had no further symptoms in the hospital and his baseline heart rate has gradually increased (60-80 bpm overnight) with no tachycardia. Given his respiratory insufficiency today and recent urologic procedure, would reassess tomorrow as to appropriateness and timing of potential permanent pacemaker given his inappropriately slow ventricular response to atrial fibr illation and tendency to bradycardia/pauses. Anticoagulated with heparin temporarily given likelihood of upcoming procedure (pacemaker placement). I will not be rounding in the hospital tomorrow, will ask Dr. Sanderson to see the patient tomorrow and further evaluate his need for permanent pacemaker. Admission and Anticipated Discharge Date Admission Date: August 30, 2023 Subjective Patient went for dilation of urethral stricture, subsequently had respiratory insufficiency prompting transfer to the ICU. Telemetry overnight showed atrial fibrillation with rate predominantly 60-80 bpm and occasional bradycardia and asymptomatic pauses of up to 3 seconds. Of note, no bradycardia or pauses during his episode of respiratory insufficiency midday today. Physical Exam Physical Exam: Obtunded. Afebrile. BP currently mildly hypertensive. Pulse 99 bpm and irregular. Not examined further. Results & Data Laboratory Results Normal electrolytes, BUN 35, creatinine 1.17. WBC 19.29, hemoglobin 12.9, normal platelet count. PG Care Time/CCT Total # of Minutes Spent Total Time Spent with Patient: Total time spent is greater than 50% in coordination of care (as documented) at patient's floor/unit and/or counseling patient: Coding Level of Care Code 58200 SUB INP/OBS CARE 2/35MIN Diagnoses Atrial fibrillation with slow ventricular response I48.91 Syncope R55 Syncope type: unspecified CAD (coronary artery disease) I25.10 S/P CABG (coronary artery bypass graft) Z95.1 (2) Syncope Syncope type: unspecified Qualified Code(s): R55 - Syncope and collapse
[2023-09-01] MEDS: CHOLECALCIFEROL 1,000 UNITS 25 MCG TAB PO SCH (13:53)
[2023-09-01] MEDS: DOCUSATE SODIUM 100 MG CAP PO SCH ×2 (13:53→21:38)
[2023-09-01] MEDS: FINASTERIDE 5 MG TAB PO SCH (13:53)
[2023-09-01] MEDS: SENNA 8.6 MG TAB PO SCH (13:54)
[2023-09-01] MEDS ORDERED: SODIUM CHLORIDE 0.9% 250 ML IV ONE (14:47)
--- NOTE | 2023-09-01 14:47 | Hospitalist Progress Note ---
Date of Service September 01, 2023 Assessment & Plan (1) Acute respiratory failure with hypoxia and hypercapnia: Plan: Code kelly overnight [09/01] - ?altered mental status from hypercapnia at that time. Code kelly following cystoscopy with conscious sedation [09/01] - severe respiratory acidosis with hypercapnia requiring ICU admission following this as he was not on BiPAP Pt requires BiPAP while napping or asleep High risk of requiring intubation given low GCS and severe hypercapnia/acidosis - will defer ongoing management to ICU team but appears to be tolerating BiPAP well at this time. (2) Obstructive sleep apnea: Plan: Strict BiPAP HS and while napping (3) Syncope: Plan: Main reason for admission Patient with 1 episode of syncope at home, 1 episode of unresponsiveness/syncope while in bed in the ER with heart rate less than 40. 5-second pause while in ER. Received atropine x 1 and was started on dobutamine drip. Lyme negative Suspect hypotensive in setting of bradycardia from a. fib with slow ventricular response Stop lisinopril, beta blockers, tamsulosin, finasteride in setting of ongoing hypotension (4) Atrial fibrillation with slow ventricular response: Plan: Previously on warfarin for 6 months after his bypass. No recurrence, s ubsequently taken off of anticoagulation. Patient is in A-fib on admission. Heparin GTT ordered for prophylaxis. TSH 1.293, TTE without wall motion abnormalities Slow ventricular response with multiple pauses - ventricular ectopy in setting of inotrope therapy. Avoid AV sylvie blocking agents. Anticoagulation with IV heparin - will continue as may need to pause for eventual pacemaker insertion Aim Mg > 2, K > 4 Appreciate cardiology recommendations - monitoring patient off beta-blockers to determine possible need for pacemaker (5) Acute heart failure with preserved ejection fraction: Plan: Lasix 40mg IV yesterday suspect was too much causing intravascular depletion - suspect some of his pulmonary edema was more from intermittent urinary retention from strictures Hold further Lasix at this time (6) UTI (urinary tract infection): Plan: Possible diagnosis. Certainly at risk with suspected urethral strictures and prior severe infection per patient treated with month of nitrofurantoin earlier this year. Significant leucocytosis that continues to increase may be due to multiple attempts trying to get a fuentes catheter Blood cultures negative after 24 hours Procalcitonin negative - likely can stop antibiotics if blood/urine culture remain negative after 48 hours Ceftriaxone switched to cefepime last night Follow up with family to try and find result of what the previous organism was - not suspected to be pseudomonas. (7) Benign prostatic hyperplasia with lower urinary tract symptoms: Plan: Hold tamsulosin and finasteride Appreciate urology management - now with fuentes catheter in place (8) Prostate cancer: Plan: No urinary retention, suspect difficulty urinating due to urethral strictures and agree with urology consult placed by ICU team but no emergent need for fuentes catheter at this time (9) Essential (primary) hypertension: Plan: Stop lisinopril, metoprolol Lasix 40mg IV now, will dose as BP allows (10) CAD (coronary artery disease): Plan: Unclear why he is not on aspirin, will defer to cardiology Hold BB and lisinopril Continue statin (11) Hypercholesterolemia: Plan: Continue atorvastatin (12) S/P CABG (coronary artery bypass graft): Plan VTE Prophylaxis - IV heparin drip Diet - NPO Disposition - transfer to ICU following code purple Admission and Anticipated Discharge Date Admission Date: August 30, 2023 Subjective Overnight code purple due to patient agitation. Unclear if patient was wearing BiPAP overnight but was placed on BiPAP after CT head. ABG this morning with pH 7.38 and CO2 57Taken to cystoscopy prior to being seen this morning. Patient seen after contacted for unresponsiveness and hypoxia following cystoscopy. Asked RN to place patient on BIPAP, stat ABG and immediately went to see the patient. On shouting the patient would have increased tone, movement towards pain and try to open eyes but was unable to. GCS 8 (E1V2M5). Code purple was called. Significant rhonchi breath sounds. Subsequent ABG with pH 7.12 with CO2 111. BiPAP settings discussed with respiratory at bedside and patient was able to tolerate this. His reports he would want to be intubated in the event of a respiratory arrest but no treatment in the event of a cardiac arrest. Discussed the case with Dr Ordaz and patient transferred to the ICU. BP with MAP < 65 therefore 250ml NSS ordered as likely over diuresed yesterday. Subsequent lactate however was normal. ICU ordering albumin. Updated family on events. Updated ICU MOBILE PHLEBOTOMIST for overnight care. Review of Systems Review of Systems: All systems reviewed & are unremarkable except as noted in HPI & below Physical Exam Constitutional: well developed and + acute distress Respiratory: + labored breathing and + uses accessory muscles; + not able to speak in complete sentence Cardiovascular: Rate/Rhythm: regular rate and + irregularly irregular Extremities: normal capillary refill and + pedal edema (trace) Gastrointestinal (Abdomen): normal bowel sounds, soft, nontender, no hepatosplenomegaly Neurologic: + not awake (GCS 8 (E1V2M5)) Results & Data Results & Data Vital Signs (Past 12 Hours) Vital Signs Temp Pulse Pulse Resp BP BP Pulse Ox 09/01/23 11:33 36.7 C 88 20 82/50 L 96 09/01/23 10:54 36.9 C 99 H 20 147/88 H 91 09/01/23 10:35 36.4 C L 85 24 89/55 L 90 09/01/23 10:25 88 22 94/51 L 93 09/01/23 10:15 99 H 24 92/50 L 93 09/01/23 10:08 36.8 C 95 H 20 97/56 L 90 09/01/23 08:30 09/01/23 08:15 36.8 C 86 18 97/53 L 92 09/01/23 07:38 79 27 H 92 09/01/23 03:39 36.7 C 69 16 89/60 L 93 O2 Del Method O2 Flow Rate FiO2 09/01/23 11:33 Oxymask 6 09/01/23 10:54 Oxymask 6 09/01/23 10:35 Nasal Cannula 5 09/01/23 10:25 Oxymask 7 09/01/23 10:15 Oxymask 13 09/01/23 10:08 Oxymask 13 09/01/23 08:30 Nasal Cannula 4 09/01/23 08:15 BiPAP 09/01/23 07:38 30 09/01/23 03:39 CPAP PG Care Time/CCT Total # of Minutes Spent Total Time Spent with Patient: Total time spent is greater than 50% in coordination of care (as documented) at patient's floor/unit and/or counseling patient: Critical Care Time: Yes Total Critical Care Time: 45 Coding Level of Care Code 27859 SUB INP/OBS CARE 3/50MIN Diagnoses Acute respiratory failure with hypoxia and hypercapnia J96.01; J96.02 Obstructive sleep apnea G47.33 Syncope R55 Syncope type: unspecified Atrial fibrillation with slow ventricular response I48.91 Acute heart failure with preserved ejection fraction I50.31 UTI (urinary tract infection) N39.0 Benign prostatic hyperplasia with lower urinary tract symptoms N40.1 Prostate cancer C61 Essential (primary) hypertension I10 CAD (coronary artery disease) I25.10 Hypercholesterolemia E78.00 S/P CABG (coronary artery bypass graft) Z95.1 Additional Codes Critical Care Time - Critical Care Time: Yes ([id number]) (3) Syncope Syncope type: unspecified Qualified Code(s): R55 - Syncope and collapse
[2023-09-01] MEDS: HEPARIN SODIUM/DEXTROSE 25,000 UNITS/500 ML BAG IV SCH ×2 (14:54→15:34)
[2023-09-01 15:09] LABS: iSTAT Allen Test Pass; iSTAT Art Bld Gas pCO2 Correct 84 mmHg (35-46); iSTAT Art Bld Gas pH Corrected 7.202 (7.35-7.45); iSTAT Arterial Blood Gas HCO3 33 meg/L (19-24); iSTAT Arterial Blood Gas pCO2 84 mmHg (35-46); iSTAT Arterial Blood Gas pO2 108 mmHg (80-95); iSTAT Arterial Blood Gas pO2 C 108; iSTAT Carbon Dioxide 35 mmol/L (24-31); iSTAT FiO2 60 %; iSTAT Hematocrit 36 % (42-52); iSTAT Hemoglobin 12.2 g/dl (14.0-18.0); iSTAT Potassium 4.9 mmol/L (3.3-5.0); iSTAT Site R Radial; iSTAT Sodium 136 mmol/L (135-144)
[2023-09-01] MEDS: ALBUMIN 25% 25 GM/100 ML VIAL IV SCH ×2 (16:05→17:13)
--- NOTE | 2023-09-01 18:35 | Critical Care Consultation ---
Date of Consultation September 01, 2023 Assessment & Plan (1) Acute respiratory failure with hypoxia and hypercapnia: (2) Urethral stricture: (3) Obstructive sleep apnea: (4) Acute respiratory failure with hypoxia: (5) Acute heart failure with preserved ejection fraction: (6) UTI (urinary tract infection): (7) S/P CABG (coronary artery bypass graft): (8) Atrial fibrillation with slow ventricular response: Plan Reason Critically Ill: Hypercarbic respiratory failure, remains bradycardic, now hypotensive requiring vasopressor support. Neuro - HX Syncope CAM ICU: ALEM - Patient currently obtunded likely secondary to hypercarbic respiratory f ailure, as well as hypotension Cardiac - AFIB, Bradycardia, Shock unspecified - Patient now requiring vasopressor support which is multifactorial at this time to include possible over diureses- hypovolemia, may have component of sepsis possibly urine, and secondary to acidosis - Butch-synephrine for support - Continue evaluation for pacemaker - Heparin infusion for afib Respiratory - Hypercarbic respiratory failure, MARCE - Multifactorial to scoliosis, underlying MARCE with chronic elevated HCO3 levels - No previous sleep study records available - ABG with improvment of PH and CO2- he is doing Ok right now with clearing his CO2 - did have long discussion with family regarding goals of care and possiblity of not being able to get off of Ventilator - Currently they would like to continue with BiPAP until he has failed this modality- if he gets intubated, time for improvement and if unable to wean off ventilator they would transition to paliative are and if he is extubated at some point- if he fails extubation do not re-intubate. GI - Constipation - Continue with bowel regime once able to be off of BIPAP support RENAL/LYTES - EM - LAST II- likely secondary to decreased oral intake over the past 48 hours, urine retention, as well as Diuretic Therapy - Avoid further nephrotoxic medications at this time - Hold on further diureses - Replete electrolytes - Urniary strictures, hx of prostate cancer - Appreciate Urology assistance - Supportive care at this time ENDO - No acute needs HEME - no acute needs - down trend of hemogolobin over past few days- no evidence of acute blood loss - transfuse for HGB <8 or symptomatic ID - Possible UTI - frequent and recent instrumentation - continue with Cefepime - WBC elevated follow LINES/IV ACCESS - ShaziaYelena krauseey Continue use of these lines- May need Central Line Placment if vasopressors continue to increase DVT PROPHYLAXIS - SCDs, Heparin infusion DISPO: ICU while on vasopressor support I have personally spent 50 minutes of critical care time in the direct management of this patient. This is a life/limb threatening event. This includes time spent evaluating patient, direct bedside care, chart review, placing orders, interpretation of diagnostic studies, discussion with consultants, patient, and family members, as well as other required patient management activities. This time is exclusive of all separately billable procedures, and teaching time and separate from and in addition to any other critical care service time. Thank you for allowing us to participate in the care of this patient. Please refer to my attending physician's documentation for any further recommendations. History of Present Illness Attending Physician: Obed Jacome MD History of Present Illness 87 YOM with medical history of: Scoliosis, MARCE (non-compliant with CPAP), HTN, CAD with CABG x3 (2015), post-operative Afib, HLD, prostate cancer with self cath at home, ? Myasthenia Gravis diagnosis that was not confirmed per report. Patient was originally consulted on on 08/30/23 where he was admitted to the ICU for decompensated heart failure, afib, and symptomatic bradycardia. The patient required no vasopressor therapy and was responded well to BiPAP for his CO2 retention. He was later evaluated by urology for difficult Bowman placement as well as abdominal pain and urinary retention. He underwent cystoscopy at the bedside with unsuccessful placement of Bowman catheter into the bladder requiring him to go to the Operating Room today. Patient has also been having difficulty with CO2 retention while off his BiPAP. He had increase to his CO2 from 75-108 throughout the day today requiring transfer to the ICU. He is now requiring vasopressor support as secondary to refractory hypotension with crystalloid and colloid infusion. He remains on BiPAP with back up rate of 22 with minimal improvement. He will be placed on vasopressors, will discuss with family regarding overall goals of care. CODE: Conditional- Do not resuscitate in event of cardiac arrest Allergies Allergy/AdvReac Type Severity Reaction Status Date / Time No Known Allergies Allergy Verified 08/30/23 16:35 Home Medications Medication Instructions Recorded Confirmed Type atorvastatin 20 mg tablet 20 mg PO HS 01/16/23 08/30/23 History cholecalciferol (vitamin D3) 50 50 mcg PO DAILY 01/16/23 08/30/23 History mcg (2,000 unit) capsule finasteride 5 mg tablet 5 mg PO DAILY 01/16/23 08/30/23 History lisinopril 10 mg tablet 10 mg PO HS 01/16/23 08/30/23 History metoprolol succinate 50 mg 50 mg PO HS 01/16/23 08/30/23 History tablet,extended release 24 hr tamsulosin 0.4 mg capsule 0.4 mg PO DAILY 01/16/23 08/30/23 History Patient History Medical History Atrial fibrillation Postoperative atrial fibrillation Hypercholesterolemia Hypertension CAD (coronary artery disease) Basal cell carcinoma of skin of nose Myasthenia gravis without (acute) exacerbation Essential (primary) hypertension Atherosclerosis of coronary artery bypass graft(s), unspecified, with other forms of angina pectoris Benign prostatic hyperplasia with lower urinary tract symptoms Prostate cancer Surgical History S/P CABG (coronary artery bypass graft) Social History Smoking Status: Never smoker Hx Alcohol Use: Yes Alcohol type: wine Hx Substance Use: No Preferred Language: Portuguese Communication Ability: Effective Manager Concrete Required: No Beliefs That Will Affect Care: None Current Living Situation: Spouse Feels Safe at Home: Yes Safety Concerns: Feels Safe At This Time Assistive Devices: BiPap and Glasses Assistive Devices Comment: doesnt wear bipap Review of Systems Review of Systems: unable to perform secondary to mental state and on BiPAP Physical Exam Physical Exam: PHYSICAL EXAM: General: obtunded Neuro: Awakenst to name only but drifts back off to sleep, speech garbled sounds, is moving bilateral upper extremities attempting to pull at mask as well as withdrawing to painful stimuli Chest: equal rise and fall of the chest, no accessory muscle use, decreased in the bases with scattered crackles. Cardiac: Regular rate and rhythm, telelmetry reviewed, skin warm dry, cap refill <3 seconds, peripheral pusles +2 no JVD, no murmur, no JVD, no edema GI: NABS x 4 quadrants, soft, nontender to palpation, no rebound, guarding or tenderness : Bowman to gravity draining dilute yellow urine Extremities: Normal inspection, no peripheral edema or erythema, calfs nontender to palpation Skin: no rash or erythema Results & Data Results & Data Vital Signs (Past 12 Hours) Vital Signs Temp Pulse Pulse Resp BP BP BP 09/01/23 17:17 36.5 C 74 14 96/46 L 09/01/23 16:45 71 19 09/01/23 16:45 71/47 L 09/01/23 16:30 75/45 L 09/01/23 16:30 70 28 H 09/01/23 16:29 68 25 H 09/01/23 16:29 81/52 L 09/01/23 16:00 72 30 H 09/01/23 16:00 74/44 L 09/01/23 15:41 87/48 L 09/01/23 15:41 66 19 09/01/23 15:30 86/51 L 09/01/23 15:30 77 30 H 09/01/23 15:28 09/01/23 15:00 73 23 09/01/23 15:00 81/53 L 09/01/23 14:44 79 22 09/01/23 14:44 86/43 L 09/01/23 14:43 74 26 H 09/01/23 14:40 79 22 09/01/23 14:05 98/46 L 09/01/23 14:05 80 22 09/01/23 14:02 81 20 09/01/23 14:01 70/42 L 09/01/23 14:01 76 24 09/01/23 14:00 83 24 09/01/23 13:36 95/61 L 09/01/23 13:35 15 09/01/23 13:00 98 H 50 H 09/01/23 11:33 36.7 C 88 20 82/50 L 09/01/23 10:54 36.9 C 99 H 20 147/88 H 09/01/23 10:35 36.4 C L 85 24 89/55 L 09/01/23 10:25 88 22 94/51 L 09/01/23 10:15 99 H 24 92/50 L 09/01/23 10:08 36.8 C 95 H 20 97/56 L 09/01/23 08:30 11/26/23 08:15 36.8 C 86 18 97/53 L 09/01/23 07:38 79 27 H Pulse Ox O2 Del Method O2 Flow Rate FiO2 09/01/23 17:17 96 BiPAP 50 09/01/23 16:45 97 09/01/23 16:45 09/01/23 16:30 09/01/23 16:30 97 09/01/23 16:29 97 09/01/23 16:29 09/01/23 16:00 96 09/01/23 16:00 09/01/23 15:41 09/01/23 15:41 85 L 09/01/23 15:30 09/01/23 15:30 99 09/01/23 15:28 BiPAP 50 09/01/23 15:00 97 BiPAP 50 09/01/23 15:00 09/01/23 14:44 100 BiPAP 09/01/23 14:44 09/01/23 14:43 09/01/23 14:40 99 50 09/01/23 14:05 09/01/23 14:05 97 09/01/23 14:02 97 09/01/23 14:01 09/01/23 14:01 97 09/01/23 14:00 97 09/01/23 13:36 09/01/23 13:35 85 L 09/01/23 13:00 09/01/23 11:33 96 Oxymask 6 09/01/23 10:54 91 Oxymask 6 09/01/23 10:35 90 Nasal Cannula 5 09/01/23 10:25 93 Oxymask 7 09/01/23 10:15 93 Oxymask 13 09/01/23 10:08 90 Oxymask 13 09/01/23 08:30 Nasal Cannula 4 09/01/23 08:15 92 BiPAP 09/01/23 07:38 92 30 Laboratory Results Abnormal lab results 09/01/23 09/01/23 09/01/23 Range/Units 00:41 01:09 05:51 WBC 17.50 H 19.29 H (4.8-10.8) K/ul RBC 4.35 L 4.27 L (4.70-6.10) M/uL Hgb 13.0 L 12.9 L (14.0-18.0) g/dl POC Hgb (14.0-18.0) g/dl Hct 40.3 L 39.2 L (42.0-52.0) % POC Hct (42-52) % MCHC (32.0-36.0) g/dL RDW Std Deviation 53.7 H 54.1 H (36.4-46.3) fL RDW Coeff of Alfonso 15.9 H 16.1 H (11.5-14.5) % Neut # (Auto) 15.43 H 17.58 H (1.40-6.50) K/uL Lymph # (Auto) 0.56 L 0.30 L (1.20-3.40) K/uL Mcclain # (Auto) 1.33 H 1.24 H (0.11-0.59) K/uL PT 12.4 H (9.0-12.0) Seconds APTT 39.6 H (21.0-31.0) Seconds POC pH (7.35-7.45) POC pCO2 (35-46) mmHg POC pO2 (80-95) mmHg POC HCO3 (19-24) sunny/L POC Total CO2 (24-31) mmol/L POC Base Excess (-9-1.8) sunny/L ABG pH (Temp Correct) (7.35-7.45) ABG pCO2 (35-46) mmHg ABG pCO2 (Temp Corrct (35-46) mmHg ABG HCO3 (19-24) mmol/L POC ABG O2 Sat (90-95) % ABG O2 Saturation (90-95) % ABG Base Excess (-9-1.8) mEq/L VBG pH 7.35 L (7.36-7.41) VBG pCO2 75 H (38-50) mmHg Potassium 5.4 H D (3.5-5.1) mmol/L Chloride 96 L (98-107) mmol/L Carbon Dioxide 35 H 37 H (21-32) mmol/L BUN 31 H 34 H (6-23) mg/dl BUN/Creatinine Ratio 32.0 H 25.6 H (10-20) Glucose 110 H 108 H (70-99(Fasting)) mg/dl POC Glucose 101 H (70-99) mg/dl AST 12 L 11 L (13-39) U/L ALT 6 L (7-52) U/L Albumin 3.3 L (3.4-5.0) gm/dl 09/01/23 09/01/23 09/01/23 Range/Units 06:11 11:54 13:27 WBC (4.8-10.8) K/ul RBC (4.70-6.10) M/uL Hgb (14.0-18.0) g/dl POC Hgb 12.6 L (14.0-18.0) g/dl Hct (42.0-52.0) % POC Hct 37 L (42-52) % MCHC (32.0-36.0) g/dL RDW Std Deviation (36.4-46.3) fL RDW Coeff of Alfonso (11.5-14.5) % Neut # (Auto) (1.40-6.50) K/uL Lymph # (Auto) (1.20-3.40) K/uL Mcclain # (Auto) (0.11-0.59) K/uL PT (9.0-12.0) Seconds APTT (21.0-31.0) Seconds POC pH 7.12 L* (7.35-7.45) POC pCO2 111 H (35-46) mmHg POC pO2 97 H (80-95) mmHg POC HCO3 36 H (19-24) sunny/L POC Total CO2 > 40 H* (24-31) mmol/L POC Base Excess 7.0 H (-9-1.8) sunny/L ABG pH (Temp Correct) (7.35-7.45) ABG pCO2 57 H (35-46) mmHg ABG pCO2 (Temp Corrct (35-46) mmHg ABG HCO3 34 H (19-24) mmol/L POC ABG O2 Sat (90-95) % ABG O2 Saturation 97.8 H (90-95) % ABG Base Excess 6.8 H (-9-1.8) mEq/L VBG pH (7.36-7.41) VBG pCO2 (38-50) mmHg Potassium (3.5-5.1) mmol/L Chloride (98-107) mmol/L Carbon Dioxide (21-32) mmol/L BUN 35 H (6-23) mg/dl BUN/Creatinine Ratio 29.9 H (10-20) Glucose (70-99(Fasting)) mg/dl POC Glucose (70-99) mg/dl AST (13-39) U/L ALT (7-52) U/L Albumin (3.4-5.0) gm/dl 09/01/23 09/01/23 09/01/23 Range/Units 14:55 18:32 21:00 WBC 19.02 H (4.8-10.8) K/ul RBC 3.57 L (4.70-6.10) M/uL Hgb 10.6 L (14.0-18.0) g/dl POC Hgb 12.2 L 11.2 L (14.0-18.0) g/dl Hct 33.9 L (42.0-52.0) % POC Hct 36 L 33 L (42-52) % MCHC 31.3 L (32.0-36.0) g/dL RDW Std Deviation 56.2 H (36.4-46.3) fL RDW Coeff of Alfonso 16.3 H (11.5-14.5) % Neut # (Auto) (1.40-6.50) K/uL Lymph # (Auto) (1.20-3.40) K/uL Mcclain # (Auto) (0.11-0.59) K/uL PT (9.0-12.0) Seconds APTT (21.0-31.0) Seconds POC pH 7.20 L 7.32 L (7.35-7.45) POC pCO2 84 H 59 H (35-46) mmHg POC pO2 108 H 78 L (80-95) mmHg POC HCO3 33 H 31 H (19-24) sunny/L POC Total CO2 35 H 33 H (24-31) mmol/L POC Base Excess 5.0 H 5.0 H (-9-1.8) sunny/L ABG pH (Temp Correct) 7.202 L 7.323 L (7.35-7.45) ABG pCO2 (35-46) mmHg ABG pCO2 (Temp Corrct 84 H 59 H (35-46) mmHg ABG HCO3 (19-24) mmol/L POC ABG O2 Sat 96.0 H (90-95) % ABG O2 Saturation (90-95) % ABG Base Excess (-9-1.8) mEq/L VBG pH 7.28 L (7.36-7.41) VBG pCO2 73 H (38-50) mmHg Potassium (3.5-5.1) mmol/L Chloride (98-107) mmol/L Carbon Dioxide 33 H (21-32) mmol/L BUN 40 H (6-23) mg/dl BUN/Creatinine Ratio 31.7 H (10-20) Glucose 104 H (70-99(Fasting)) mg/dl POC Glucose (70-99) mg/dl AST (13-39) U/L ALT (7-52) U/L Albumin (3.4-5.0) gm/dl Diagnostic Findings Renal Ultrasound 08/31/23 20:49 Exam(s): US RENAL EXAM: US Retroperitoneal Limited, Renal CLINICAL HISTORY: Reason for exam: Retention, Hematuria. TECHNIQUE: Real-time limited ultrasound of the retroperitoneum with image documentation. COMPARISON: No relevant prior studies available. FINDINGS: Right kidney: Right renal cyst projecting exophytically off of the upper pole measuring 1.0 x 2 cm. No stones. No hydronephrosis. Left kidney: Left renal cyst measuring 1.6 x 4 cm. No stones. No hydronephrosis. IMPRESSION: As above Electronically signed by: Sidney Fu MD 09/01/23 00:[address] 09/01/23 01:09 Exam(s): CT HEAD Without Contrast EXAM: CT Head Without Intravenous Contrast CLINICAL HISTORY: Reason for exam: change in mental status, off anticoagulation. TECHNIQUE: Axial computed tomography images of the head/brain without intravenous contrast. CTDI is 35.37 mGy and DLP is 702.46 mGy-cm. Automated exposure control was utilized for the study. A dose lowering technique was utilized adhering to the principles of ALARA. COMPARISON: 08/30/2023 FINDINGS: Limitations: Exam limited secondary to patient motion artifact. Brain: No acute intracranial hemorrhage. No acute transcortical infarct. Age-appropriate cerebral volume Loss. Moderate ischemic microangiopathy. Ventricles: Unremarkable. No ventriculomegaly. Bones/joints: Unremarkable. No acute fracture. Soft tissues: Unremarkable. Sinuses: Unremarkable as visualized. No acute sinusitis. Mastoid air cells: Unremarkable as visualized. No mastoid effusion. IMPRESSION: Head CT negative for acute intracranial abnormality. Chronic senescent changes described above Electronically signed by: Sidney Fu MD 09/01/23 02:25 AM Chest X-Ray 09/01/23 13:08 XR chest 1V portable CLINICAL HISTORY: hypoxia TECHNIQUE: Single frontal radiograph of the chest was obtained. Comparison: Comparison is made to chest radiograph 08/31/2023 FINDINGS: No lines and tubes are seen. The cardiomediastinal silhouette is stable. Lungs are underinflated with a left retrocardiac airspace opacity. Previously noted pulmonary edema has resolved. No evidence of pleural effusion or pneumothorax. IMPRESSION: Left retrocardiac airspace opacity which may represent atelectasis, pneumonia, and/or aspiration. ACT 112: Negative or not required by law. Electronically signed by: Alberto Villalba M.D. 09/01/2023 1:38 PM Coding Level of Care Code 52268 CRITICAL CARE 1ST 30-74M Diagnoses Acute respiratory failure with hypoxia and hypercapnia J96.01; J96.02 Urethral stricture N35.919 Obstructive sleep apnea G47.33 Acute respiratory failure with hypoxia J96.01 Acute heart failure with preserved ejection fraction I50.31 UTI (urinary tract infection) N39.0 S/P CABG (coronary artery bypass graft) Z95.1 Atrial fibrillation with slow ventricular response I48.91
[2023-09-01 18:41] LABS: Base Excess VBG 5.1 mEq/L; HCO3 VBG 34 mmol/L; Oxygen Saturation VBG 93.3 %; PCO2 VBG 73 mmHg (38-50); PO2 VBG 63 mmHg; pH VBG 7.28 (7.36-7.41)
[2023-09-01 18:47] LABS: Hematocrit (blood only) 33.9 % (42.0-52.0); Hemoglobin 10.6 g/dl (14.0-18.0); Mean Corpuscular Hemoglobin 29.7 pg (25.0-34.0); Mean Corpuscular Hgb Conc 31.3 g/dL (32.0-36.0); Mean Platelet Volume 9.7 fL (9.4-12.4); Platelet Count 159 K/uL (130-400); RDW Coefficient of Variation 16.3 % (11.5-14.5); RDW Standard Deviation 56.2 fL (36.4-46.3); Red Blood Count 3.57 M/uL (4.70-6.10); White Blood Count 19.02 K/ul (4.8-10.8)
[2023-09-01 19:01] LABS: BUN Creatinine Ratio 31.7 (10-20); Calcium 9.4 mg/dl (8.6-10.3); Creatinine Clr Calc Pharmacy 40.5 ml/min; Est GFR (African American) 58.6 ml/min; Est GFR (Non-African American) 50.6 ml/min; Potassium 4.9 mmol/L (3.5-5.1)
[2023-09-01] MEDS ORDERED: STAT IV Infusion **Titration per Protocol STA ×2 (19:31→19:51)
[2023-09-01] MEDS ORDERED: NOREPINEPHRINE/D5W 4 MG/250 ML PLCT IV SCH (19:45)
[2023-09-01] MEDS: PHENYLEPHRINE/NSS 25 MG/250 ML BAG IV SCH ×2 (21:09→23:50)
[2023-09-01 21:14] LABS: iSTAT Art Bld Gas pCO2 Correct 59 mmHg (35-46); iSTAT Art Bld Gas pH Corrected 7.323 (7.35-7.45); iSTAT Arterial Blood Gas HCO3 31 meg/L (19-24); iSTAT Arterial Blood Gas pCO2 59 mmHg (35-46); iSTAT Arterial Blood Gas pH 7.32 (7.35-7.45); iSTAT Arterial Blood Gas pO2 78 mmHg (80-95); iSTAT Arterial Blood Gas pO2 C 78; iSTAT Carbon Dioxide 33 mmol/L (24-31); iSTAT FiO2 30 %; iSTAT Hematocrit 33 % (42-52); iSTAT Hemoglobin 11.2 g/dl (14.0-18.0); iSTAT Potassium 4.6 mmol/L (3.3-5.0); iSTAT Site Art Line; iSTAT Sodium 137 mmol/L (135-144)
--- NOTE | 2023-09-01 21:19 | Procedure Note ---
Procedure Note Date of Service September 01, 2023 Note ARTERIAL LINE PROCEDURE NOTE: Procedure: Arterial Line Placement Proceduralist: Freddy DEVRIES ([facility]) Attending: Dr. ORDAZ Indication: Monitoring on Pressors Anesthesia: x Lidocaine 1% Consent was obtained from patient's as delegated to me by Dr. Ordaz, consent was signed and placed on the chart prior to procedure. Indication, risks, and benefits were explained at length. No immediate questions noted from the or daughter A time-out was completed verifying correct patient, procedure, site, positioning, and implant(s) or special equipment if applicable. Allens test was performed to ensure adequate perfusion. Patients LEFT wrist was prepped and draped in the usual sterile fashion. Ultrasound guidance was used can handler the vessel as well as to aid needle placement. A 20g Arrow arterial line was introd uced into the LEFT RADIAL artery. Catheter was threaded, and the needle was removed with appropriate blood return. Good waveform was observed. The patient tolerated the procedure well. Blood Loss: Minimal Complications: None immediately noted Ultrasound images were not saved to the permanent record Coding CPT Codes Tubes, Drains, and Vasc Access - Tubes, Drains, and Vasc Access: [id number] Arterial Cath/Cannulation Sampling/Monitoring/Transfusion ([id number]) [facility] [place] Procedure Codes (Charges) Tubes, Drains, and Vasc Access Procedure 1: Tubes, Drains, and Vasc Access: [id number] Arterial Cath/Cannulation Sampling/Monitoring/Transfusion
[2023-09-01] MEDS: ATORVASTATIN 20 MG TAB PO SCH (21:38)
[2023-09-01 22:00] LABS: Partial Thromboplastin Ratio 2.1
[2023-09-01 22:03] LABS: Partial Thromboplastin Time 58.9 Seconds (21.0-31.0)
[2023-09-02 00:46] LABS: BUN Creatinine Ratio 38.2 (10-20); Calcium 9.2 mg/dl (8.6-10.3); Creatinine Clr Calc Pharmacy 46.4 ml/min; Est GFR (African American) 69.1 ml/min; Est GFR (Non-African American) 59.6 ml/min; Potassium 4.5 mmol/L (3.5-5.1)
--- NOTE | 2023-09-02 02:23 | Communication Note ---
Date of Service: September 02, 2023 Patient is now much more awake and conversing appropriately, he is moving all his extremities and asking what day and time it is. He does remember me from earlier in his stay. His Arterial line has become non-functional with him moving and bending his wrist, this has been removed as his vasopressor requirements have greatly decreased as well, will not replace at this time. Hopeful this is a favorable turn around for this gentlemen. Freddy DEVRIES ([facility]-)
[2023-09-02] MEDS: PHENYLEPHRINE/NSS 25 MG/250 ML BAG IV SCH ×2 (03:01→11:21)
[2023-09-02 06:20] LABS: Basophils # (auto) 0.02 K/uL (0.00-0.20); Basophils % (auto) 0.1 %; Eosinophils # (auto) 0.01 K/uL (0.00-0.50); Eosinophils % (auto) 0.1 %; Hematocrit (blood only) 31.3 % (42.0-52.0); Hemoglobin 10.2 g/dl (14.0-18.0); Immature Granulocytes # (auto) 0.12 K/uL (0.01-0.20); Immature Granulocytes % (auto) 0.7 %; Lymphocytes # (auto) 0.41 K/uL (1.20-3.40); Lymphocytes % (auto) 2.3 %; Mean Corpuscular Hemoglobin 30.5 pg (25.0-34.0); Mean Corpuscular Hgb Conc 32.6 g/dL (32.0-36.0); Mean Corpuscular Volume 93.7 fL (80.0-100.0); Mean Platelet Volume 10.2 fL (9.4-12.4); Monocytes % (auto) 8.6 %; Neutrophils # (auto) 15.41 K/uL (1.40-6.50); Neutrophils % (auto) 88.2 %; Platelet Count 187 K/uL (130-400); RDW Coefficient of Variation 16.8 % (11.5-14.5); RDW Standard Deviation 57.7 fL (36.4-46.3); Red Blood Count 3.34 M/uL (4.70-6.10); White Blood Count 17.47 K/ul (4.8-10.8)
[2023-09-02 06:21] LABS: BUN Creatinine Ratio 42.7 (10-20); Calcium 9.4 mg/dl (8.6-10.3); Creatinine Clr Calc Pharmacy 60.7 ml/min; Est GFR (African American) 81.5 ml/min; Est GFR (Non-African American) 70.3 ml/min; Potassium 4.6 mmol/L (3.5-5.1)
[2023-09-02 06:22] LABS: iSTAT Allen Test Pass; iSTAT Art Bld Gas pCO2 Correct 68 mmHg (35-46); iSTAT Art Bld Gas pH Corrected 7.284 (7.35-7.45); iSTAT Arterial Blood Gas HCO3 33 meg/L (19-24); iSTAT Arterial Blood Gas pCO2 70 mmHg (35-46); iSTAT Arterial Blood Gas pH 7.28 (7.35-7.45); iSTAT Arterial Blood Gas pO2 123 mmHg (80-95); iSTAT Arterial Blood Gas pO2 C 119; iSTAT Carbon Dioxide 35 mmol/L (24-31); iSTAT FiO2 45 %; iSTAT Hematocrit 30 % (42-52); iSTAT Hemoglobin 10.2 g/dl (14.0-18.0); iSTAT Potassium 4.5 mmol/L (3.3-5.0); iSTAT Site R Radial; iSTAT Sodium 138 mmol/L (135-144)
--- NOTE | 2023-09-02 07:21 | Hospitalist Progress Note ---
Date of Service September 02, 2023 Assessment & Plan (1) Acute respiratory failure with hypoxia and hypercapnia: Plan: Respiratory - Hypercarbic respiratory failure, MARCE - Multifactorial to scoliosis, underlying MARCE with chronic elevated HCO3 levels - ICU providers did have long discussion with family regarding goals of care and possibility of not being able to get off of Ventilator -Patient requiring intermittent BiPAP for support will attempt to get Trelegy for at bedtime use at home. Certainly will use his BiPAP after anesthesia and when he takes daytime naps. (2) Acute heart failure with preserved ejection fraction: Plan: known CAD with history of CABG (3) UTI (urinary tract infection): Plan: Possible UTI - history of ureteral stricture frequent and recent instrumentation - continue with Cefepime - WBC elevated follow Urinary strictures, hx of prostate cancer - Appreciate Urology assistance - Supportive care at this time (4) Atrial fibrillation with slow ventricular response: Plan: AFIB, Bradycardia, Shock resolved -Patient has pacemaker placed on 1128. Heparin is held for 24 hours given his recent procedure however patient is also noted to have a hemoglobin drop 3 g. He has no overt signs of bleeding at this time. If hemoglobin continues to trend downward may consider CT scan to evaluate for retroperitoneal bleed. Will check iron studies in the morning, we will institute Pepcid twice daily Plan RENAL/LYTES - EM - LAST II- likely secondary to decreased oral intake over the past 48 hours, urine retention, as well as Diuretic Therapy - Avoid further nephrotoxic medications at this time - Hold on further diureses - Replete electrolytes HEME - no acute needs - down trend of hemogolobin over past few days- no evidence of acute blood loss - transfuse for HGB <8 or symptomatic Admission and Anticipated Discharge Date Admission Date: August 30, 2023 Subjective Patient was seen postprocedure results of sedation in place he is having no focal complaints or problems he is mildly short of breath he had a pressure dressing in place in his left chest Physical Exam Physical Exam: Patient is awake and alert appropriate. Card exam is distant but regular. There is a pressure dressing in his left chest. His lungs are clear his abdomen is slightly protuberant NABS soft and nontender Results & Data Results & Data Vital Signs (Past 12 Hours) Vital Signs Temp Pulse Resp BP Pulse Ox O2 Del Method FiO2 09/02/23 05:31 98.8 F 09/02/23 05:00 84 23 94 09/02/23 04:45 68 17 94 09/02/23 04:45 99/47 L 09/02/23 04:32 66 19 97 09/02/23 04:32 100/57 L 09/02/23 04:15 66 28 H 96 09/02/23 04:15 96/43 L 09/02/23 04:00 67 16 99 09/02/23 04:00 100/48 L 09/02/23 03:56 80 25 H 91 45 09/02/23 03:45 98/50 L 09/02/23 03:45 69 29 H 98 09/02/23 03:30 96/44 L 09/02/23 03:30 74 22 92 09/02/23 03:16 66 21 98 09/02/23 03:16 102/50 L 09/02/23 03:01 101/43 L 09/02/23 03:01 63 29 H 98 09/02/23 03:00 77 22 97 09/02/23 02:45 83 20 96 09/02/23 02:45 106/62 09/02/23 02:30 66 24 98 09/02/23 02:30 100/46 L 09/02/23 02:15 78 24 88 L 09/02/23 02:15 89/42 L 09/02/23 02:00 89/51 L 09/02/23 02:00 68 22 97 09/02/23 01:46 62 22 98 09/02/23 01:46 108/56 L 09/02/23 01:42 121/53 L 09/02/23 01:42 66 19 98 09/02/23 01:37 114/63 09/02/23 01:37 64 18 98 09/02/23 01:29 65 26 H 98 09/02/23 01:29 132/54 L 09/02/23 01:00 134/66 09/02/23 01:00 71 24 98 09/02/23 00:54 BiPAP 45 09/02/23 00:45 63 25 H 97 09/02/23 00:30 127/57 L 09/02/23 00:30 72 20 98 09/02/23 00:15 144/61 H 09/02/23 00:15 69 32 H 98 09/02/23 00:00 67 29 H 99 09/02/23 00:00 135/72 09/01/23 23:45 142/72 H 09/01/23 23:45 76 25 H 99 09/01/23 23:30 135/62 09/01/23 23:30 67 30 H 98 09/01/23 23:20 78 21 99 09/01/23 23:20 122/67 09/01/23 23:15 110/64 09/01/23 23:15 80 22 96 09/01/23 23:10 110/48 L 09/01/23 23:10 76 23 97 09/01/23 23:06 103/55 L 09/01/23 23:06 75 19 97 09/01/23 23:04 76 27 H 97 09/01/23 23:04 103/50 L 09/01/23 23:00 85/50 L 09/01/23 23:00 80 21 83 L 09/01/23 22:50 79 30 H 92 09/01/23 22:50 84/42 L 09/01/23 22:45 78 23 81 L 09/01/23 22:32 71 22 97 30 09/01/23 22:30 75 25 H 96 09/01/23 22:30 131/58 L 09/01/23 22:16 78 25 H 90 09/01/23 22:16 105/77 09/01/23 22:15 74 25 H 95 09/01/23 22:03 108/67 09/01/23 22:03 67 23 96 09/01/23 22:00 108/53 L 09/01/23 22:00 74 23 95 09/01/23 21:57 102/58 L 09/01/23 21:57 74 19 92 09/01/23 21:45 121/60 09/01/23 21:45 73 22 98 09/01/23 21:30 133/62 09/01/23 21:30 75 20 97 09/01/23 21:23 67 19 97 09/01/23 21:23 124/54 L 09/01/23 21:15 87/46 L 09/01/23 21:15 65 25 H 99 09/01/23 21:00 97/53 L 09/01/23 21:00 65 25 H 83 L 09/01/23 20:46 119/51 L 09/01/23 20:46 78 22 89 L 09/01/23 20:45 79 19 92 09/01/23 19:15 60 22 94 30 Laboratory Results Reviewed CBC noting a 3 g hemoglobin drop since presentation reviewed chemistry PG Care Time/CCT Total # of Minutes Spent Total Time Spent with Patient: Total time spent is greater than 50% in coordination of care (as documented) at patient's floor/unit and/or counseling patient: Coding Level of Care Code 96505 SUB INP/OBS CARE 3/50MIN Diagnoses Acute respiratory failure with hypoxia and hypercapnia J96.01; J96.02 Acute heart failure with preserved ejection fraction I50.31 UTI (urinary tract infection) N39.0 Atrial fibrillation with slow ventricular response I48.91
[2023-09-02 07:25] LABS: Partial Thromboplastin Ratio 2.1
[2023-09-02 07:26] LABS: Partial Thromboplastin Time 59.7 Seconds (21.0-31.0)
[2023-09-02 08:20] LABS: Magnesium 2.1 mg/dl (1.7-2.4)
--- NOTE | 2023-09-02 08:23 | Critical Care Progress Note ---
Date of Service September 02, 2023 Assessment & Plan (1) Bradycardia: (2) Atrial fibrillation: (3) CAD (coronary artery disease): (4) Hypertension: (5) Hypercholesterolemia: (6) Prostate cancer: Plan Reason Critically Ill: 87 YOm admitted to ICU following episode of bradycardia in the EMD followed by ventricular ectopy in setting of inotrope therapy. Patient was found to be hypercapnic and altered while on the floor post OR Recommendations: Neuro - -- Metabolic encephalopathy Secondary to hypercapnia Continue with BiPAP nightly and as needed shortness of breath -- Syncope/presyncope Secondary to likely cardiac etiology with low heart rate Cardiology on board Cardiac - --Symptomatic bradycardia Has been off beta-blockers Patient still goes into low 30s with drop in blood pressure Cardiology on board for possible pacemaker placement -- A-fib Continue with heparin drip -- History of hypertension Blood pressure medications on hold Respiratory - --Acute hypercapnic respiratory failure Likely secondary to MARCE/OHS Patient will benefit from AVAPS machine at home --History of MARCE Not on any CPAP right now --sleep disordered breathing: The patient is open to the prospect of using CPAP at night. Recommend that he use it on a regular basis 8 cm of water and consider repeat outpatient sleep study/sleep evaluation if needed. GI - N.p.o. right now RENAL/LYTES - - Follow renal function and electrolytes - ICU electrolyte protocol -unable to place Bowman catheter and the patient is complaining of bladder discomfort. Consult urology for Bowman catheter placement. ENDO - -Continue with ICU hyperglycemic protocol- Goal BG <180mg/dl - TSH 1.2 HEME - No acute needs ID - -- UTI Complete the course of cefepime for 7 days --Prophylaxis VTE: Heparin drip GI: None Lines: Peripheral Diet: N.p.o. Plan: In/out: +874, urine output 895, negative for 12 since coming to the hospital Given the persistent hypercapnia that the patient has on multiple locations while hospitalized. I do think he is going to benefit from an AVAPS machine Get case management involved Try to wean off vasopressors if feasible. Await EP recommendations to see whether patient will be taken for permanent pacemaker placement I have personally spent 36 minutes of critical care time in the direct management of this patient. This is a life/limb threatening event. This includes time spent evaluating patient, direct bedside care, chart review, placing orders, interpretation of diagnostic studies, discussion with consultants, patient, and family members, as well as other required patient management activities. This time is exclusive of all separately billable procedures, and teaching time and separate from and in addition to any other critical care service time. Please note the above document was generated using voice recognition software. It may contain grammatical, syntax or spelling errors. Admission and Anticipated Discharge Date Admission Date: August 30, 2023 Subjective Patient seen and examined at bedside. No acute distress, notable since overnight Patient's heart rate was in the mid 60s. MAP 68 at the time of examination while being on phenylephrine low-dose. He was awake alert and answering all the questions appropriately Denied any headache, no nausea, no vomiting No abdominal pain Has been afebrile. Review of Systems 2 Review of Systems: All systems reviewed & are unremarkable except as noted in Subjective Physical Exam 2 Physical Exam: Constitutional: No acute distress HEENT: EOMI, PERRLA Respiratory system: Creased air entry bilaterally, no wheeze, no rhonchi, mild crackles bilaterally CVS: S1-S2 positive, no murmurs or gallops Abdomen: Soft, nontender, nondistended, positive bowel sounds x4 Extremities: +2 pulses bilaterally radialis/ dorsalis pedis, no cyanosis, no edema Neuro: Awake alert oriented x3 Psych: Normal mood and affect G/U: Positive Bowman Skin: no rashes, warm and dry Lymphatic: no cervical or axillary lymphadenopathy Results & Data Results & Data Vital Signs (Past 12 Hours) Vital Signs Temp Pulse Resp BP Pulse Ox O2 Del Method FiO2 09/02/23 06:58 45 L 24 97 35 09/02/23 05:31 37.1 C 09/02/23 05:00 84 23 94 09/02/23 04:45 68 17 94 09/02/23 04:45 99/47 L 09/02/23 04:32 66 19 97 09/02/23 04:32 100/57 L 09/02/23 04:15 66 28 H 96 09/02/23 04:15 96/43 L 09/02/23 04:00 67 16 99 09/02/23 04:00 100/48 L 09/02/23 03:56 80 25 H 91 45 09/02/23 03:45 98/50 L 09/02/23 03:45 69 29 H 98 09/02/23 03:30 96/44 L 09/02/23 03:30 74 22 92 09/02/23 03:16 66 21 98 09/02/23 03:16 102/50 L 09/02/23 03:01 101/43 L 09/02/23 03:01 63 29 H 98 09/02/23 03:00 77 22 97 09/02/23 02:45 83 20 96 09/02/23 02:45 106/62 09/02/23 02:30 66 24 98 09/02/23 02:30 100/46 L 09/02/23 02:15 78 24 88 L 09/02/23 02:15 89/42 L 09/02/23 02:00 89/51 L 09/02/23 02:00 68 22 97 09/02/23 01:46 62 22 98 09/02/23 01:46 108/56 L 09/02/23 01:42 121/53 L 09/02/23 01:42 66 19 98 09/02/23 01:37 114/63 09/02/23 01:37 64 18 98 09/02/23 01:29 65 26 H 98 09/02/23 01:29 132/54 L 09/02/23 01:00 134/66 09/02/23 01:00 71 24 98 09/02/23 00:54 BiPAP 45 09/02/23 00:45 63 25 H 97 09/02/23 00:30 127/57 L 09/02/23 00:30 72 20 98 09/02/23 00:15 144/61 H 09/02/23 00:15 69 32 H 98 09/02/23 00:00 67 29 H 99 09/02/23 00:00 135/72 09/01/23 23:45 142/72 H 09/01/23 23:45 76 25 H 99 09/01/23 23:30 135/62 09/01/23 23:30 67 30 H 98 09/01/23 23:20 78 21 99 09/01/23 23:20 122/67 09/01/23 23:15 110/64 09/01/23 23:15 80 22 96 09/01/23 23:10 110/48 L 09/01/23 23:10 76 23 97 09/01/23 23:06 103/55 L 09/01/23 23:06 75 19 97 09/01/23 23:04 76 27 H 97 09/01/23 23:04 103/50 L 09/01/23 23:00 85/50 L 09/01/23 23:00 80 21 83 L 09/01/23 22:50 79 30 H 92 09/01/23 22:50 84/42 L 09/01/23 22:45 78 23 81 L 09/01/23 22:32 71 22 97 30 09/01/23 22:30 75 25 H 96 09/01/23 22:30 131/58 L 09/01/23 22:16 78 25 H 90 09/01/23 22:16 105/77 09/01/23 22:15 74 25 H 95 09/01/23 22:03 108/67 09/01/23 22:03 67 23 96 09/01/23 22:00 108/53 L 09/01/23 22:00 74 23 95 09/01/23 21:57 102/58 L 09/01/23 21:57 74 19 92 09/01/23 21:45 121/60 09/01/23 21:45 73 22 98 09/01/23 21:30 133/62 09/01/23 21:30 75 20 97 09/01/23 21:23 67 19 97 09/01/23 21:23 124/54 L 09/01/23 21:15 87/46 L 09/01/23 21:15 65 25 H 99 09/01/23 21:00 97/53 L 09/01/23 21:00 65 25 H 83 L 09/01/23 20:46 119/51 L 09/01/23 20:46 78 22 89 L 09/01/23 20:45 79 19 92 Laboratory Results 09/02/23 05:44 09/02/23 05:44 Coding Level of Care Code 82095 CRITICAL CARE 1ST 30-74M Diagnoses Bradycardia R00.1 Atrial fibrillation I48.91 Atrial fibrillation type: unspecified CAD (coronary artery disease) I25.10 Hypertension I10 Hypercholesterolemia E78.00 Prostate cancer C61 (2) Atrial fibrillation Atrial fibrillation type: unspecified Qualified Code(s): I48.91 - Unspecified atrial fibrillation
[2023-09-02] MEDS: CHOLECALCIFEROL 1,000 UNITS 25 MCG TAB PO SCH (10:47)
[2023-09-02] MEDS: CEFEPIME 2,000 MG in SYRINGE 0 ML IV SCH ×2 (11:21→20:17)
[2023-09-02] MEDS: DOCUSATE SODIUM 100 MG CAP PO SCH ×2 (11:21→20:18)
[2023-09-02] MEDS: SENNA 8.6 MG TAB PO SCH (11:21)
--- NOTE | 2023-09-02 12:37 | Urology Progress Note ---
Date of Service September 02, 2023 Assessment & Plan (1) Benign prostatic hyperplasia with lower urinary tract symptoms: (2) Urethral stricture: Plan 87 year old critically ill male with a hx of brachytherapy for prostate cancer admitted with acute fluid overload, significant respiratory issue, congestive heart failure, and considerable cardiac history with acute issues. Urology consulted for catheter placement for fluid management. Catheter placed at bedside with scope on 08/31 but was noted to have inadequate drainage. Patient was taken to the operating room for catheter placement 09/01. POD #1 s/p Cystoscopy with multiple Urethral Dilations, Irrigation of bladder, Aspiration of urine, Difficult catheter placement over wire with Dr. Wayne. Afebrile, labs reviewed - creatinine 0.96. Urine culture 08/31 with more than 3 types of organisms. Blood cultures 08/31 preliminary no growth. On Cefepime. Patient is tolerating the catheter with minimal bother. Bowman draining appropriately - urine is clear yellow. Continue to monitor. Plan to maintain Bowman catheter for at least 7-10 days. Patient has followed with [facility] urology in the past. He can continue to follow with his primary urologist or we can arrange follow-up with our office. Urology will follow peripherally. Please contact us with any further questions/concerns. Admission and Anticipated Discharge Date Admission Date: August 30, 2023 Subjective Patient examined at bedside this AM in the ICU. Awake, resting in bed on arrival. No acute distress. Bowman catheter intact, draining clear yellow urine. Review of Systems Constitutional: as per Subjective / HPI Genitourinary: + as per Subjective / HPI Physical Exam Constitutional: no acute distress Respiratory: no respiratory distress and no labored breathing Neurologic: awake Psychiatric: Orientation: alert and cooperative Genitourinary: Bowman intact Results & Data Vital Signs (Past 12 Hours) Vital Signs Temp Pulse Resp BP Pulse Ox O2 Del Method FiO2 09/02/23 10:27 64 24 96 35 09/02/23 06:58 45 L 24 97 35 09/02/23 05:31 37.1 C 09/02/23 05:00 84 23 94 09/02/23 04:45 68 17 94 09/02/23 04:45 99/47 L 09/02/23 04:32 66 19 97 09/02/23 04:32 100/57 L 09/02/23 04:15 66 28 H 96 09/02/23 04:15 96/43 L 09/02/23 04:00 67 16 99 09/02/23 04:00 100/48 L 09/02/23 03:56 80 25 H 91 45 09/02/23 03:45 98/50 L 09/02/23 03:45 69 29 H 98 09/02/23 03:30 96/44 L 09/02/23 03:30 74 22 92 09/02/23 03:16 66 21 98 09/02/23 03:16 102/50 L 09/02/23 03:01 101/43 L 09/02/23 03:01 63 29 H 98 09/02/23 03:00 77 22 97 09/02/23 02:45 83 20 96 09/02/23 02:45 106/62 09/02/23 02:30 66 24 98 09/02/23 02:30 100/46 L 09/02/23 02:15 78 24 88 L 09/02/23 02:15 89/42 L 09/02/23 02:00 89/51 L 09/02/23 02:00 68 22 97 09/02/23 01:46 62 22 98 09/02/23 01:46 108/56 L 09/02/23 01:42 121/53 L 09/02/23 01:42 66 19 98 09/02/23 01:37 114/63 09/02/23 01:37 64 18 98 09/02/23 01:29 65 26 H 98 09/02/23 01:29 132/54 L 09/02/23 01:00 134/66 09/02/23 01:00 71 24 98 09/02/23 00:54 BiPAP 45 09/02/23 00:45 63 25 H 97 PG Care Time/CCT Total # of Minutes Spent Total Time Spent with Patient: Total time spent is greater than 50% in coordination of care (as documented) at patient's floor/unit and/or counseling patient: Coding Level of Care Code 52311 SUB INP/OBS CARE 2/35MIN Diagnoses Benign prostatic hyperplasia with lower urinary tract symptoms N40.1 Urethral stricture N35.919
[2023-09-02] MEDS: HEPARIN SODIUM/DEXTROSE 25,000 UNITS/500 ML BAG IV SCH (13:32)
--- NOTE | 2023-09-02 17:07 | Cardiology Progress Note ---
Date of Service September 02, 2023 Assessment & Plan (1) Atrial fibrillation with slow ventricular response: (2) Syncope: (3) CAD (coronary artery disease): (4) S/P CABG (coronary artery bypass graft): Plan 1. Bradycardia: Overall heart rates appear to be improved. He still has occasional episodes of mild and transient bradycardia not associated with symptoms. Likely related to him being in bed. However, given his presentation and current arrhythmia, implantation of pacemaker seems reasonable. I discussed the procedure with the patient and his family. We will tentatively plan on proceeding tomorrow. 2. Atrial fibrillation: New diagnosis. Record was from 2020. His will to normal rhythm at the time of his cardiology appointment in January this year. Whether she is having symptoms of atrial fibrillation is not clear. However, I think we will implant dual-chamber pacer and then attempt cardioversion after period of anticoagulation. 3. Hypertension. I do not believe this is related to the patient's arrhythmia. Heart rates are normal currently. Still on some phenylephrine. Hopefully this can be weaned by tomorrow. Admission and Anticipated Discharge Date Admission Date: August 30, 2023 Subjective This afternoon the patient had no specific complaints. No breathing difficulty at rest. No episodes of dizziness or presyncope. No sense of palpitation. No discomfort from his urologic procedure yesterday. Review of Systems Review of Systems: Per HPI Physical Exam Physical Exam: The patient is alert and oriented. Mood and affect appeared normal. He answered all questions appropriately. HEENT: Pupils are equal and reactive to light and accommodation. Extraocular movements are intact. The sclerae are anicteric. Neuro: Cranial nerves intact Scoliosis noted. Lungs: Clear to auscultation bilaterally. He has good air movement without use of accessory muscles. No rales wheezes or rhonchi. Cardiac: Heart demonstrates an irregular rhythm. Normal S1 and S2. Holosystolic murmur of variable intensity Pulses: The patient has palpable radial pulses bilaterally that are equal in intensity Extremities: There was no evidence of hypoperfusion. There is no cyanosis or clubbing. There is no edema. Skin: I did not appreciate any rashes on examination today. Results & Data Vital Signs (Past 12 Hours) Vital Signs Temp Pulse Resp BP Pulse Ox O2 Del Method O2 Flow Rate 09/02/23 14:30 72 28 H 109/52 L 93 BiPAP 09/02/23 14:00 72 20 102/47 L 93 BiPAP 09/02/23 13:30 75 47 H 92 09/02/23 13:01 76 25 H 104/60 92 BiPAP 09/02/23 13:00 59 L 18 77/52 L 93 09/02/23 12:30 68 21 109/59 L 93 Nasal Cannula 2 09/02/23 12:01 78 19 94 09/02/23 12:01 102/56 L 09/02/23 12:00 74 18 94 09/02/23 11:56 77 22 94 09/02/23 11:56 101/55 L 09/02/23 11:30 74 28 H 92 09/02/23 11:30 115/76 09/02/23 11:15 105/57 L 09/02/23 11:15 58 L 20 96 09/02/23 11:01 54 L 20 96 09/02/23 11:00 58 L 18 106/60 96 BiPAP 09/02/23 10:46 45 L 23 100/55 L 96 09/02/23 10:30 51 L 21 106/53 L 96 09/02/23 10:27 64 24 96 09/02/23 10:16 67 24 98/56 L 96 BiPAP 09/02/23 10:00 61 15 111/52 L 98 09/02/23 09:45 53 L 23 100/51 L 96 BiPAP 09/02/23 09:30 40 L 28 H 98/55 L 96 09/02/23 09:15 49 L 24 91/58 L 97 BiPAP 09/02/23 09:00 61 13 110/59 L 97 09/02/23 08:45 68 18 108/67 97 BiPAP 09/02/23 08:31 66 22 113/45 L 96 09/02/23 08:15 57 L 24 105/63 97 BiPAP 09/02/23 08:00 51 L 24 92/55 L 96 09/02/23 06:58 45 L 24 97 09/02/23 05:31 37.1 C FiO2 09/02/23 14:30 35 09/02/23 14:00 35 09/02/23 13:30 09/02/23 13:01 35 09/02/23 13:00 09/02/23 12:30 09/02/23 12:01 09/02/23 12:01 09/02/23 12:00 09/02/23 11:56 09/02/23 11:56 09/02/23 11:30 09/02/23 11:30 09/02/23 11:15 09/02/23 11:15 09/02/23 11:01 09/02/23 11:00 35 09/02/23 10:46 09/02/23 10:30 09/02/23 10:27 35 09/02/23 10:16 35 09/02/23 10:00 09/02/23 09:45 35 09/02/23 09:30 09/02/23 09:15 35 09/02/23 09:00 09/02/23 08:45 35 09/02/23 08:31 09/02/23 08:15 35 09/02/23 08:00 09/02/23 06:58 35 09/02/23 05:31 Laboratory Results Abnormal Lab Results 09/01/23 09/01/23 09/01/23 18:32 20:59 21:00 WBC 19.02 H RBC 3.57 L Hgb 10.6 L POC Hgb 11.2 L Hct 33.9 L POC Hct 33 L MCV 95.0 MCH 29.7 MCHC 31.3 L RDW Std Deviation 56.2 H RDW Coeff of Alfonso 16.3 H Plt Count 159 MPV 9.7 Immature Gran % (Auto) Neut % (Auto) Lymph % (Auto) [place] % (Auto) Eos % (Auto) Baso % (Auto) Neut # (Auto) Lymph # (Auto) [place] # (Auto) Eos # (Auto) Baso # (Auto) Immature Gran # (Auto) APTT 58.9 H* PTT Ratio 2.1 Sample Site Art Line POC pH 7.32 L POC pCO2 59 H POC pO2 78 L POC HCO3 31 H POC Total CO2 33 H POC Base Excess 5.0 H ABG pH (Temp Correct) 7.323 L ABG pCO2 (Temp Corrct 59 H POC ABG pO2 at Pt Temp 78 POC ABG O2 Sat 94.0 Ravindra Test NA VBG pH 7.28 L VBG pCO2 73 H VBG pO2 63 VBG HCO3 34 VBG O2 Saturation 93.3 VBG Base Excess 5.1 O2 Delivery Device BIPAP POC O2 Rate 22 POC FiO2 30 IPAP 18 POC Sodium 137 Sodium 138 POC Potassium 4.6 Potassium 4.9 Chloride 100 Carbon Dioxide 33 H Anion Gap 5 BUN 40 H Creatinine 1.26 Est Cr Clr Drug Dosing 40.5 Est GFR ( Amer) 58.6 Est GFR (Non-Af Amer) 50.6 BUN/Creatinine Ratio 31.7 H Glucose 104 H POC Glucose (other) Calcium 9.4 Phosphorus Magnesium Procalcitonin Blood Type O Positive Antibody Screen NEGATIVE 09/02/23 09/02/23 09/02/23 00:19 00:32 05:44 WBC 17.47 H RBC 3.34 L Hgb 10.2 L POC Hgb Hct 31.3 L POC Hct MCV 93.7 MCH 30.5 MCHC 32.6 RDW Std Deviation 57.7 H RDW Coeff of Alfonso 16.8 H Plt Count 187 MPV 10.2 Immature Gran % (Auto) 0.7 Neut % (Auto) 88.2 Lymph % (Auto) 2.3 [place] % (Auto) 8.6 Eos % (Auto) 0.1 Baso % (Auto) 0.1 Neut # (Auto) 15.41 H Lymph # (Auto) 0.41 L [place] # (Auto) 1.50 H Eos # (Auto) 0.01 Baso # (Auto) 0.02 Immature Gran # (Auto) 0.12 APTT 59.7 H* PTT Ratio 2.1 Sample Site POC pH POC pCO2 POC pO2 POC HCO3 POC Total CO2 POC Base Excess ABG pH (Temp Correct) ABG pCO2 (Temp Corrct POC ABG pO2 at Pt Temp POC ABG O2 Sat Ravindra Test VBG pH VBG pCO2 VBG pO2 VBG HCO3 VBG O2 Saturation VBG Base Excess O2 Delivery Device POC O2 Rate POC FiO2 IPAP POC Sodium Sodium 138 139 POC Potassium Potassium 4.5 4.6 Chloride 102 103 Carbon Dioxide 29 32 Anion Gap 7 4 BUN 42 H 41 H Creatinine 1.10 0.96 Est Cr Clr Drug Dosing 46.4 60.7 Est GFR ( Amer) 69.1 81.5 Est GFR (Non-Af Amer) 59.6 70.3 BUN/Creatinine Ratio 38.2 H 42.7 H Glucose 106 H 102 H POC Glucose (other) 96 Calcium 9.2 9.4 Phosphorus 4.0 Magnesium 2.1 Procalcitonin 0.57 H Blood Type Antibody Screen 09/02/23 06:05 WBC RBC Hgb POC Hgb 10.2 L Hct POC Hct 30 L MCV MCH MCHC RDW Std Deviation RDW Coeff of Alfonso Plt Count MPV Immature Gran % (Auto) Neut % (Auto) Lymph % (Auto) [place] % (Auto) Eos % (Auto) Baso % (Auto) Neut # (Auto) Lymph # (Auto) [place] # (Auto) Eos # (Auto) Baso # (Auto) Immature Gran # (Auto) APTT PTT Ratio Sample Site R Radial POC pH 7.28 L POC pCO2 70 H POC pO2 123 H POC HCO3 33 H POC Total CO2 35 H POC Base Excess 6.0 H ABG pH (Temp Correct) 7.284 L ABG pCO2 (Temp Corrct 68 H POC ABG pO2 at Pt Temp 119 POC ABG O2 Sat 98.0 H Ravindra Test Pass VBG pH VBG pCO2 VBG pO2 VBG HCO3 VBG O2 Saturation VBG Base Excess O2 Delivery Device BIPAP POC O2 Rate 22 POC FiO2 45 IPAP 18 POC Sodium 138 Sodium POC Potassium 4.5 Potassium Chloride Carbon Dioxide Anion Gap BUN Creatinine Est Cr Clr Drug Dosing Est GFR ( Amer) Est GFR (Non-Af Amer) BUN/Creatinine Ratio Glucose POC Glucose (other) Calcium Phosphorus Magnesium Procalcitonin Blood Type Antibody Screen Diagnostic Findings Echocardiogram dated 08/31/2023: Normal LV systolic function with ejection fraction of 55-60%. Moderate to severe mitral regurgitation. Elevated right ventricular pressures. PG Care Time/CCT Total # of Minutes Spent Total Time Spent with Patient: Total time spent is greater than 50% in coordination of care (as documented) at patient's floor/unit and/or counseling patient: Coding Level of Care Code 64685 SUB INP/OBS CARE 2/35MIN Diagnoses Atrial fibrillation with slow ventricular response I48.91 Syncope R55 Syncope type: unspecified CAD (coronary artery disease) I25.10 S/P CABG (coronary artery bypass graft) Z95.1 (2) Syncope Syncope type: unspecified Qualified Code(s): R55 - Syncope and collapse
[2023-09-02] MEDS: ATORVASTATIN 20 MG TAB PO SCH (20:17)
[2023-09-02] MEDS ORDERED: HEPARIN SODIUM/DEXTROSE 25,000 UNITS/500 ML BAG IV SCH (22:45)
[2023-09-03 04:53] LABS: Basophils # (auto) 0.01 K/uL (0.00-0.20); Basophils % (auto) 0.1 %; Eosinophils # (auto) 0.19 K/uL (0.00-0.50); Hematocrit (blood only) 29.2 % (42.0-52.0); Hemoglobin 9.5 g/dl (14.0-18.0); Immature Granulocytes # (auto) 0.03 K/uL (0.01-0.20); Immature Granulocytes % (auto) 0.3 %; Lymphocytes # (auto) 0.41 K/uL (1.20-3.40); Lymphocytes % (auto) 4.3 %; Mean Corpuscular Hemoglobin 30.6 pg (25.0-34.0); Mean Corpuscular Hgb Conc 32.5 g/dL (32.0-36.0); Mean Corpuscular Volume 94.2 fL (80.0-100.0); Mean Platelet Volume 9.5 fL (9.4-12.4); Monocytes # (auto) 1.05 K/uL (0.11-0.59); Neutrophils # (auto) 7.89 K/uL (1.40-6.50); Neutrophils % (auto) 82.3 %; Platelet Count 141 K/uL (130-400); RDW Coefficient of Variation 16.8 % (11.5-14.5); RDW Standard Deviation 56.7 fL (36.4-46.3); White Blood Count 9.58 K/ul (4.8-10.8)
[2023-09-03 05:14] LABS: BUN Creatinine Ratio 67.2 (10-20); Calcium 9.4 mg/dl (8.6-10.3); Est GFR (African American) 101.3 ml/min; Est GFR (Non-African American) 87.4 ml/min; Magnesium 2.1 mg/dl (1.7-2.4); Potassium 4.6 mmol/L (3.5-5.1)
[2023-09-03 05:39] LABS: Partial Thromboplastin Ratio 2.2
[2023-09-03 05:45] LABS: Partial Thromboplastin Time 61.6 Seconds (21.0-31.0)
[2023-09-03] MEDS ORDERED: LIDOCAINE 1% LOCAL 20 ML VIAL ONE (07:03)
[2023-09-03] MEDS ORDERED: WATER, STERILE FOR INJ 10 ML VIAL ONE (07:03)
[2023-09-03] MEDS ORDERED: VANCOMYCIN HCL 1000MG/20ML VIAL ONE (07:03)
[2023-09-03] MEDS ORDERED: BUPIVACAINE 0.25% PF 30 ML VIAL ONE (07:04)
[2023-09-03] MEDS ORDERED: STOP ORDER: HEPARIN ONE (07:30)
--- NOTE | 2023-09-03 07:51 | Critical Care Progress Note ---
Date of Service September 03, 2023 Assessment & Plan (1) Bradycardia: (2) Atrial fibrillation: (3) CAD (coronary artery disease): (4) Hypertension: (5) Hypercholesterolemia: (6) Prostate cancer: Plan Reason Critically Ill: 87 YOm admitted to ICU following episode of bradycardia in the EMD followed by ventricular ectopy in setting of inotrope therapy. Patient was found to be hypercapnic and altered while on the floor post OR Recommendations: Neuro - -- Metabolic encephalopathy Secondary to hypercapnia Continue with BiPAP nightly and as needed shortness of breath -- Syncope/presyncope Secondary to likely cardiac etiology with low heart rate Cardiology on board Cardiac - --Symptomatic bradycardia Has been off beta-blockers Patient still goes into low 30s with drop in blood pressure Cardiology on board for possible pacemaker placement -- A-fib Continue with heparin drip -- History of hypertension Blood pressure medications on hold Respiratory - --Acute hypercapnic respiratory failure Likely secondary to MARCE/OHS Patient will benefit from AVAPS machine at home --History of MARCE Not on any CPAP right now --Sleep disordered breathing Continue with BiPAP nightly and as needed shortness of breath GI - N.p.o. right now RENAL/LYTES - - Follow renal function and electrolytes - ICU electrolyte protocol -unable to place Bowman catheter and the patient is complaining of bladder discomfort. Consult urology for Bowman catheter placement. ENDO - -Continue with ICU hyperglycemic protocol- Goal BG <180mg/dl - TSH 1.2 HEME - No acute needs ID - -- UTI Complete the course of cefepime for 7 days --Prophylaxis VTE: Heparin drip on hold GI: None Lines: Peripheral Diet: Plan: In/out: -860, urine output 1750 Due to chronic respiratory failure consequent to COPD, patient now requires a noninvasive home ventilator. Bilevel therapy with and without a rate would be ineffective as patient requires a volume targeted mode. Ventilation is required to decrease work of breathing and improve pulmonary status. Patient would benefit greatly from noninvasive ventilation which would improve lung function and potentially reduce worsening of symptoms. A BiPAP would be ineffective as patient requires a volume targeted mode. Interruption of ventilator support would lead to a decline of health status. NIMV settings should be AVAPS-AE; Breath rate: auto; Inspiratory time:auto; Sigh: off; Tidal Volume: 350-450, PS min: 4-10 PS max: 12-20; EPAP min: 6-10; EPAP max: 10-16; AVAPS rate: 14 during sleep and as needed Patient blood pressure has been stable and has been off vasopressors for more than 12 hours He is going to have a permanent pacemaker placed later today. Okay to be downgraded to telemetry floor. Will defer disposition to cardiology post PPM Please note the above document was generated using voice recognition software. It may contain grammatical, syntax or spelling errors.Any formal questions or concerns about the content, text or information contained within the body of this dictation should be directly addressed to the provider for clarification. Admission and Anticipated Discharge Date Admission Date: August 30, 2023 Subjective Patient seen and examined at bedside. No acute distress, no adverse events overnight Patient has been off vasopressors At the time of examination his map was 68-69. Heart rate in the low 60s He was saturating 93% on 4 L, I went down to 3 L He did use his BiPAP overnight. He states that he is feeling much better. Denies any shortness of breath, no chest pain, no headache, no nausea, no vomiting Does complain of mild discomfort in the right groin. Review of Systems 2 Review of Systems: All systems reviewed & are unremarkable except as noted in Subjective Physical Exam 2 Physical Exam: Constitutional: No acute distress HEENT: EOMI, PERRLA Respiratory system: Decreased air entry bilaterally, no wheeze, no rhonchi, mild crackles bilaterally CVS: S1-S2 positive, no murmurs or gallops Abdomen: Soft, nontender, nondistended, positive bowel sounds x4 Extremities: +2 pulses bilaterally radialis/ dorsalis pedis, no cyanosis, no edema Neuro: Awake alert oriented x3 Psych: Normal mood and affect G/U: Positive Bowman Skin: no rashes, warm and dry Lymphatic: no cervical or axillary lymphadenopathy Results & Data Results & Data Vital Signs (Past 12 Hours) Vital Signs Temp Pulse Resp BP Pulse Ox O2 Del Method O2 Flow Rate 09/03/23 05:00 48 L 19 97/47 L 95 09/03/23 04:31 48 L 21 99/56 L 97 09/03/23 04:30 53 L 18 87 L 09/03/23 04:28 37.0 C 09/03/23 04:00 52 L 17 97 09/03/23 03:30 50 L 24 95 09/03/23 03:30 59 L 19 97/51 L 94 09/03/23 03:00 50 L 22 107/54 L 95 09/03/23 02:31 64 24 100/50 L 97 09/03/23 02:30 80 20 91 09/03/23 02:00 70 22 108/71 97 09/03/23 01:30 59 L 22 96/49 L 95 09/03/23 01:00 58 L 20 96/59 L 98 09/03/23 00:30 67 24 103/51 L 96 09/03/23 00:15 52 L 09/03/23 00:13 36.9 C 09/03/23 00:00 64 22 104/52 L 96 09/02/23 23:35 65 24 98 09/02/23 23:30 56 L 25 H 94/63 L 98 09/02/23 23:00 63 28 H 101/52 L 98 09/02/23 22:30 66 26 H 110/72 96 09/02/23 22:00 67 32 H 99/56 L 97 09/02/23 21:35 BiPAP 09/02/23 21:30 65 22 96/57 L 95 09/02/23 21:00 75 28 H 107/63 94 09/02/23 20:30 82 26 H 129/66 94 09/02/23 20:05 Oxymask 3 09/02/23 20:00 79 20 113/69 92 FiO2 09/03/23 05:00 09/03/23 04:31 09/03/23 04:30 09/03/23 04:28 09/03/23 04:00 09/03/23 03:30 35 09/03/23 03:30 09/03/23 03:00 09/03/23 02:31 09/03/23 02:30 09/03/23 02:00 09/03/23 01:30 09/03/23 01:00 09/03/23 00:30 09/03/23 00:15 09/03/23 00:13 09/03/23 00:00 09/02/23 23:35 35 09/02/23 23:30 09/02/23 23:00 09/02/23 22:30 09/02/23 22:00 09/02/23 21:35 09/02/23 21:30 09/02/23 21:00 09/02/23 20:30 09/02/23 20:05 09/02/23 20:00 Laboratory Results 09/03/23 04:43 09/03/23 04:43 Coding Level of Care Code 45009 SUB INP/OBS CARE 3/50MIN Diagnoses Bradycardia R00.1 Atrial fibrillation I48.91 Atrial fibrillation type: unspecified CAD (coronary artery disease) I25.10 Hypertension I10 Hypercholesterolemia E78.00 Prostate cancer C61 (2) Atrial fibrillation Atrial fibrillation type: unspecified Qualified Code(s): I48.91 - Unspecified atrial fibrillation
[2023-09-03] MEDS: CEFEPIME 2,000 MG in SYRINGE 0 ML IV SCH (07:56)
[2023-09-03] MEDS: DOCUSATE SODIUM 100 MG CAP PO SCH ×2 (08:11→20:26)
[2023-09-03] MEDS: SENNA 8.6 MG TAB PO SCH (08:11)
[2023-09-03] MEDS: CHOLECALCIFEROL 1,000 UNITS 25 MCG TAB PO SCH (08:11)
[2023-09-03] MEDS ORDERED: ceFAZolin 330 MG/ML 1 GM VIAL ONE (09:28)
[2023-09-03] MEDS ORDERED: fentaNYL citrate PF 100 MCG/2 ML VIAL ONE (09:28)
[2023-09-03] MEDS ORDERED: MIDAZOLAM HCL 5 MG/ML 1 ML VIAL ONE (09:28)
--- NOTE | 2023-09-03 10:05 | Pre Anesthesia Assessment ---
Date of Service September 03, 2023 Pre Sedation Assessment Vital Signs Temp Pulse Resp BP Pulse Ox O2 Del Method O2 Flow Rate 09/03/23 08:22 Nasal Cannula 09/03/23 08:00 52 L 11 L 95 09/03/23 08:00 108/64 09/03/23 08:00 48 L 09/03/23 07:30 66 17 96 09/03/23 07:30 86/69 L 09/03/23 07:00 62 21 95 09/03/23 07:00 98/60 L 09/03/23 06:45 68 29 H 97 09/03/23 05:00 48 L 19 97/47 L 95 09/03/23 04:31 48 L 21 99/56 L 97 09/03/23 04:30 53 L 18 87 L 09/03/23 04:28 37.0 C 09/03/23 04:00 52 L 17 97 09/03/23 03:30 50 L 24 95 09/03/23 03:30 59 L 19 97/51 L 94 09/03/23 03:00 50 L 22 107/54 L 95 09/03/23 02:31 64 24 100/50 L 97 09/03/23 02:30 80 20 91 09/03/23 02:00 70 22 108/71 97 09/03/23 01:30 59 L 22 96/49 L 95 09/03/23 01:00 58 L 20 96/59 L 98 09/03/23 00:30 67 24 103/51 L 96 09/03/23 00:15 52 L 09/03/23 00:13 36.9 C 09/03/23 00:00 64 22 104/52 L 96 09/02/23 23:35 65 24 98 09/02/23 23:30 56 L 25 H 94/63 L 98 09/02/23 23:00 63 28 H 101/52 L 98 09/02/23 22:30 66 26 H 110/72 96 09/02/23 22:00 67 32 H 99/56 L 97 09/02/23 21:35 BiPAP 09/02/23 21:30 65 22 96/57 L 95 09/02/23 21:00 75 28 H 107/63 94 09/02/23 20:30 82 26 H 129/66 94 09/02/23 20:05 Oxymask 3 09/02/23 20:00 79 20 113/69 92 09/02/23 19:30 78 22 103/61 94 09/02/23 19:00 37.2 C 09/02/23 18:30 86 25 H 101/67 91 Oxymask 3 09/02/23 18:00 84 22 107/61 88 L Nasal Cannula 3 09/02/23 17:30 79 20 98/63 L 88 L Nasal Cannula 3 09/02/23 17:00 36.9 C 09/02/23 17:00 71 18 103/55 L 94 Oxymask 3 09/02/23 16:30 74 21 104/56 L 94 09/02/23 16:00 75 25 H 92 09/02/23 16:00 105/59 L 09/02/23 15:30 76 19 105/56 L 84 L 09/02/23 15:00 111/57 L 09/02/23 15:00 75 31 H 111/57 L 94 Oxymask 3 09/02/23 14:30 72 28 H 109/52 L 93 BiPAP 09/02/23 14:00 72 20 102/47 L 93 BiPAP 09/02/23 13:30 75 47 H 92 09/02/23 13:01 76 25 H 104/60 92 BiPAP 09/02/23 13:00 59 L 18 77/52 L 93 09/02/23 12:30 68 21 109/59 L 93 Nasal Cannula 2 09/02/23 12:01 78 19 94 09/02/23 12:01 102/56 L 09/02/23 12:00 74 18 94 09/02/23 11:56 77 22 94 09/02/23 11:56 101/55 L 09/02/23 11:30 74 28 H 92 09/02/23 11:30 115/76 09/02/23 11:15 105/57 L 09/02/23 11:15 58 L 20 96 09/02/23 11:01 54 L 20 96 09/02/23 11:00 58 L 18 106/60 96 BiPAP 09/02/23 10:46 45 L 23 100/55 L 96 09/02/23 10:30 51 L 21 106/53 L 96 09/02/23 10:27 64 24 96 09/02/23 10:16 67 24 98/56 L 96 BiPAP FiO2 09/03/23 08:22 4 09/03/23 08:00 09/03/23 08:00 09/03/23 08:00 09/03/23 07:30 09/03/23 07:30 09/03/23 07:00 09/03/23 07:00 09/03/23 06:45 09/03/23 05:00 09/03/23 04:31 09/03/23 04:30 09/03/23 04:28 09/03/23 04:00 09/03/23 03:30 35 09/03/23 03:30 09/03/23 03:00 09/03/23 02:31 09/03/23 02:30 09/03/23 02:00 09/03/23 01:30 09/03/23 01:00 09/03/23 00:30 09/03/23 00:15 09/03/23 00:13 09/03/23 00:00 09/02/23 23:35 35 09/02/23 23:30 09/02/23 23:00 09/02/23 22:30 09/02/23 22:00 09/02/23 21:35 09/02/23 21:30 09/02/23 21:00 09/02/23 20:30 09/02/23 20:05 09/02/23 20:00 09/02/23 19:30 09/02/23 19:00 09/02/23 18:30 09/02/23 18:00 09/02/23 17:30 09/02/23 17:00 09/02/23 17:00 09/02/23 16:30 09/02/23 16:00 09/02/23 16:00 09/02/23 15:30 09/02/23 15:00 09/02/23 15:00 09/02/23 14:30 35 09/02/23 14:00 35 09/02/23 13:30 09/02/23 13:01 35 09/02/23 13:00 09/02/23 12:30 09/02/23 12:01 09/02/23 12:01 09/02/23 12:00 09/02/23 11:56 09/02/23 11:56 09/02/23 11:30 09/02/23 11:30 09/02/23 11:15 09/02/23 11:15 09/02/23 11:01 09/02/23 11:00 35 09/02/23 10:46 09/02/23 10:30 09/02/23 10:27 35 09/02/23 10:16 35 Cardiovascular + irregularly irregular Respiratory + respiratory effort normal Pre-Sedation Airway Assessment Smoking Status: Never smoker Hx Sleep Apnea: Yes Hx Difficult Intubation: No Short, Thick Neck: No Thyromental Distance: > or= 3.5 Finger Breadths Mallampati Class: II ASA: ASA3 Procedure Planning Contraindications for Sedation: none Current Medications Reviewed: Yes Notes The planned sedation has been discussed with the patient. Informed Consent was obtained. I have identified the patient, determined the appropriateness of sedation and have assessed the patient immediately prior to the procedure. All medicine(s) and interventions are by my order.
--- NOTE | 2023-09-03 11:23 | Electrophysiology Report ---
Date of Service September 03, 2023 Electrophysiology Procedure Electrophysiology Procedure Report Procedure performed: Implantation of dual-chamber permanent pacemaker with left bundle pacing lead Staff brownfield redevelopment specialist: Nahum Sanderson MD Indication: The patient is an 79-year-old gentleman who presented with an episode of syncope. He was discovered to have atrial fibrillation and slow ventricular response. Was advised to go implantation of a permanent pacemaker due to symptomatic nonreversible AV node dysfunction. Dual-chamber device was selected as our intention is return him to sinus rhythm. Procedure in detail: The patient was informed of the risks benefits and alternatives to the intended procedure and she wished to proceed. She was taken to the electrophysiology suite in a fasting state. A preoperative antibiotic had been administered. The patient was monitored electrocardiographically throughout today's procedure and conscious sedation was administered per protocol. The left upper pectoral area is prepped and draped in usual sterile fashion. This area was anesthetized using subcutaneous administration of a xylocaine solution. An incision was made at this site and carried down to the prepectoralis fascia using sharp dissection. Electrocautery was also employed for dissection as well as for hemostasis. A device pocket was fashioned tissues above the pectoralis muscle. Subsequent to this maneuver the left axillary vein was accessed using modified Seldinger technique. A sheath was placed over a guidewire and used facilitate passage of the guiding catheter for mapping of the interventricular septum. His bundle mapping was also performed. Once an adequate location was identified the pacing lead was advanced into the interventricular septum till the appropriate electro physiologic characteristics were identified. This point the guiding catheter and sheath were removed. The proximal portion lead was then sutured to prepectoralis fascia using nonabsorbable suture. A sheath was placed over the remaining guidewire and used facilitate passage of the pacing lead to the right atrium under fluoroscopic guidance. Adequate sensing threshold parameters were obtained prior to active fixation of this lead to the endocardial surface. The proximal portion lead was then sutured to prepectoralis fascia using nonabsorbable suture. The device pocket was irrigated with antibiotic solution. The leads were then attached to the device. The device and leads were then placed in the pocket and pocket was closed in 3 layers of absorbable suture. Steri-Strips and sterile dressing were applied. The device was tested noninvasively prior to conclusion the procedure. The patient tolerated procedure well there no immediate complications. Equipment used: New pulse generator: [employer]. Model number:[id number] serial number [id number] Right atrial lead: [employer]igher [employer]. Model number: 5076 serial number [id number] Right ventricular lead: [employer]igher [employer]. Model number: 3830 serial number [id number] Measured data: Right atrial lead: Patient was in atrial fibrillation. Waves measured 1.1 mV. Pacing impedance was 380 Ohms Right ventricular lead: R-waves measured 10.1 mV. Pacing threshold 0.5 volts at 0.4 millisecond with a pacing impedance of 798 Ohms Impression: Successful implantation of dual-chamber permanent pacemaker with left bundle pacing lead [facility] Electrophysiology codes EP Procedure 1: Electrophysiology: 45336 Bundle of His recording Pacing Procedure 1: Pacin Insert/Replace Pacer A & V PG Moderate Sedation Codes Moderate Sedation Codes Procedure 1: Sedation/Anesthesia: 34848 Mod Sedation by the same physician;Init15 Min Child Age 5 & Up Procedure 2: Sedation/Anesthesia: 85751 Mod Sedation by the same physician; Ea [id number] Minutes
--- NOTE | 2023-09-03 11:23 | Post Anesthesia Assessment ---
Date of Service September 03, 2023 Post Sedation Assessment Vital Signs Temp Pulse Pulse Resp BP BP Pulse Ox 09/03/23 08:22 09/03/23 08:00 36.5 C 52 L 11 L 108/64 95 09/03/23 08:00 52 L 11 L 95 09/03/23 08:00 108/64 09/03/23 08:00 48 L 09/03/23 07:30 66 17 96 09/03/23 07:30 86/69 L 09/03/23 07:00 62 21 95 09/03/23 07:00 98/60 L 09/03/23 06:45 68 29 H 97 09/03/23 05:00 48 L 19 97/47 L 95 09/03/23 04:31 48 L 21 99/56 L 97 09/03/23 04:30 53 L 18 87 L 09/03/23 04:28 37.0 C 09/03/23 04:00 52 L 17 97 09/03/23 03:30 50 L 24 95 09/03/23 03:30 59 L 19 97/51 L 94 09/03/23 03:00 50 L 22 107/54 L 95 09/03/23 02:31 64 24 100/50 L 97 09/03/23 02:30 80 20 91 09/03/23 02:00 70 22 108/71 97 09/03/23 01:30 59 L 22 96/49 L 95 09/03/23 01:00 58 L 20 96/59 L 98 09/03/23 00:30 67 24 103/51 L 96 09/03/23 00:15 52 L 09/03/23 00:13 36.9 C 09/03/23 00:00 64 22 104/52 L 96 09/02/23 23:35 65 24 98 09/02/23 23:30 56 L 25 H 94/63 L 98 09/02/23 23:00 63 28 H 101/52 L 98 09/02/23 22:30 66 26 H 110/72 96 09/02/23 22:00 67 32 H 99/56 L 97 09/02/23 21:35 09/02/23 21:30 65 22 96/57 L 95 09/02/23 21:00 75 28 H 107/63 94 09/02/23 20:30 82 26 H 129/66 94 09/02/23 20:05 09/02/23 20:00 79 20 113/69 92 09/02/23 19:30 78 22 103/61 94 09/02/23 19:00 37.2 C 09/02/23 18:30 86 25 H 101/67 91 09/02/23 18:00 84 22 107/61 88 L 09/02/23 17:30 79 20 98/63 L 88 L 09/02/23 17:00 36.9 C 09/02/23 17:00 71 18 103/55 L 94 09/02/23 16:30 74 21 104/56 L 94 09/02/23 16:00 75 25 H 92 09/02/23 16:00 105/59 L 09/02/23 15:30 76 19 105/56 L 84 L 09/02/23 15:00 111/57 L 09/02/23 15:00 75 31 H 111/57 L 94 09/02/23 14:30 72 28 H 109/52 L 93 09/02/23 14:00 72 20 102/47 L 93 09/02/23 13:30 75 47 H 92 09/02/23 13:01 76 25 H 104/60 92 09/02/23 13:00 59 L 18 77/52 L 93 09/02/23 12:30 68 21 109/59 L 93 09/02/23 12:01 78 19 94 09/02/23 12:01 102/56 L 09/02/23 12:00 74 18 94 09/02/23 11:56 77 22 94 09/02/23 11:56 101/55 L 09/02/23 11:30 74 28 H 92 09/02/23 11:30 115/76 O2 Del Method O2 Flow Rate FiO2 09/03/23 08:22 Nasal Cannula 4 09/03/23 08:00 BiPAP 09/03/23 08:00 09/03/23 08:00 09/03/23 08:00 09/03/23 07:30 09/03/23 07:30 09/03/23 07:00 09/03/23 07:00 09/03/23 06:45 09/03/23 05:00 09/03/23 04:31 09/03/23 04:30 09/03/23 04:28 09/03/23 04:00 09/03/23 03:30 35 09/03/23 03:30 09/03/23 03:00 09/03/23 02:31 09/03/23 02:30 09/03/23 02:00 09/03/23 01:30 09/03/23 01:00 09/03/23 00:30 09/03/23 00:15 09/03/23 00:13 09/03/23 00:00 09/02/23 23:35 35 09/02/23 23:30 09/02/23 23:00 09/02/23 22:30 09/02/23 22:00 09/02/23 21:35 BiPAP 09/02/23 21:30 09/02/23 21:00 09/02/23 20:30 09/02/23 20:05 Oxymask 3 09/02/23 20:00 09/02/23 19:30 09/02/23 19:00 09/02/23 18:30 Oxymask 3 09/02/23 18:00 Nasal Cannula 3 09/02/23 17:30 Nasal Cannula 3 09/02/23 17:00 09/02/23 17:00 Oxymask 3 09/02/23 16:30 09/02/23 16:00 09/02/23 16:00 09/02/23 15:30 09/02/23 15:00 09/02/23 15:00 Oxymask 3 09/02/23 14:30 BiPAP 35 09/02/23 14:00 BiPAP 35 09/02/23 13:30 09/02/23 13:01 BiPAP 35 09/02/23 13:00 09/02/23 12:30 Nasal Cannula 2 09/02/23 12:01 09/02/23 12:01 09/02/23 12:00 09/02/23 11:56 09/02/23 11:56 09/02/23 11:30 09/02/23 11:30 Recovery Score Activity: Moves 4 extremities Respiration: Apneic/Obstructed Airway Circulation: +/-20% PreAnes Value Consciousness: Arouseable (by name) Oxygen Saturation: O2 needed for >90% Post Anesthesia Score: 7 Discharge Sedation Level of Care: Fast Track Phase II Post Sedation Plan On clinical assessment, the patient appears to have tolerated the sedation without complications. Patient is recovering as anticipated. Patient will continue to be monitored by nursing and may be discharged when sedation discharge criteria are met per below protocol. Upon Completions of procedure up to 15 minutes continue every 5 minute vital signs and the P.A.R. score; then discharge to a Phase I or Fast Track to Phase II per the following guidelines: * Discharge Patient to appropriate Phase II area if PAR is 8 or greater or return to pre- procedure baseline. The post - procedure orders will be as di rected. * If PAR score is less than 8 or not return to pre-procedure baseline then patient will follow Phase I monitoring till PAR is reached for Phase II. The Phase I may be done in procedure room or may call to secure a Phase I area. * If naloxone or flumazenil are used for reversal, hold in Phase I for continued monitoring from when last reversal dose was given for a minimum of 60 minutes or longer pending the nurse and/or physician discretion of patient condition before discharge to Phase II. Please call the Sedation Physician to re-evaluate and complete post-note for discharge to Phase II area. Do NOT discharge from procedure sedation or Phase 1 until post- sedation evaluation note is complete by procedure /sedation MD Sedation Discharge Instructions to be given to the patient at discharge to home.
--- NOTE | 2023-09-03 14:15 | Electrocardiogram Report ---
Test Reason : Blood Pressure : / mmHG Vent. Rate : 085 BPM Atrial Rate : 000 BPM P-R Int : 000 ms QRS Dur : 092 ms QT Int : 346 ms P-R-T Axes : 000 011 044 degrees QTc Int : 411 ms Atrial fibrillation Low voltage QRS Nonspecific ST abnormality Abnormal ECG Confirmed by Nahum Sanderson ([id number]) on 09/03/2023 2:15:18 PM Referred By: REFERRED SELF Confirmed By:Vinay Sanderson
[2023-09-03] MEDS ORDERED: ceFAZolin 2000MG 2,000 MG/15 ML SYR IV ONE (19:00)
[2023-09-03] MEDS: FAMOTIDINE 20 MG in SYRINGE 3 ML IV SCH (20:26)
[2023-09-03] MEDS: ATORVASTATIN 20 MG TAB PO SCH (20:26)
[2023-09-03] MEDS: cefTRIAXone SODIUM 2,000 MG in DEXTROSE 5 % MINI-B 50 ML IV SCH (20:27)
[2023-09-04 05:08] LABS: Basophils # (auto) 0.02 K/uL (0.00-0.20); Basophils % (auto) 0.2 %; Eosinophils # (auto) 0.33 K/uL (0.00-0.50); Eosinophils % (auto) 3.3 %; Hematocrit (blood only) 30.2 % (42.0-52.0); Hemoglobin 9.5 g/dl (14.0-18.0); Immature Granulocytes # (auto) 0.06 K/uL (0.01-0.20); Immature Granulocytes % (auto) 0.6 %; Lymphocytes # (auto) 0.59 K/uL (1.20-3.40); Lymphocytes % (auto) 5.8 %; Mean Corpuscular Hemoglobin 29.9 pg (25.0-34.0); Mean Corpuscular Hgb Conc 31.5 g/dL (32.0-36.0); Mean Platelet Volume 9.7 fL (9.4-12.4); Monocytes # (auto) 1.22 K/uL (0.11-0.59); Neutrophils # (auto) 7.91 K/uL (1.40-6.50); Neutrophils % (auto) 78.1 %; Platelet Count 165 K/uL (130-400); RDW Coefficient of Variation 16.3 % (11.5-14.5); RDW Standard Deviation 56.8 fL (36.4-46.3); Red Blood Count 3.18 M/uL (4.70-6.10); White Blood Count 10.13 K/ul (4.8-10.8)
[2023-09-04 05:12] LABS: BUN Creatinine Ratio 56.5 (10-20); Calcium 9.5 mg/dl (8.6-10.3); Creatinine Clr Calc Pharmacy 89.8 ml/min; Est GFR (African American) 102.7 ml/min; Est GFR (Non-African American) 88.6 ml/min; Magnesium 1.9 mg/dl (1.7-2.4); Potassium 4.3 mmol/L (3.5-5.1)
[2023-09-04 06:09] LABS: Partial Thromboplastin Ratio 1.5
[2023-09-04 06:12] LABS: Partial Thromboplastin Time 43.5 Seconds (21.0-31.0)
--- NOTE | 2023-09-04 07:07 | XRay Report ---
XR chest 2V PA/lateral HISTORY: 87 years-old Male EXACT TIME ORDERED Evaluate for pneumothorax and l status post placement of a left subclavian pacer COMPARISON: 09/01/2023 TECHNIQUE: AP and lateral views of the chest FINDINGS: Status post placement of a dual lead left subclavian pacer. No postprocedural pneumothorax identified . Cardiac silhouette is enlarged. Pulmonary edema with layering pleural effusions and bibasilar conso lidation again noted. Bones appear grossly intact. IMPRESSION: 1. Status post placement of a dual lead left subclavian pacer. No postprocedural pneumothorax identif ied. 2. Cardiomegaly with pulmonary edema, layering pleural effusions with bibasilar consolidation. ACT 112: Negative or not required by law. The above report was generated using voice recognition software. It may contain grammatical, syntax o r spelling errors. Electronically signed by: Wilner Naidu M.D. 09/04/2023 7:06 AM
--- NOTE | 2023-09-04 07:26 | Pulmonology Progress Note ---
Date of Service September 04, 2023 Assessment & Plan (1) Bradycardia: (2) Atrial fibrillation: Atrial fibrillation type: unspecified Qualified Code(s): I48.91 - Unspecified atrial fibrillation (3) CAD (coronary artery disease): (4) Hypertension: (5) Hypercholesterolemia: (6) Prostate cancer: Plan --Acute hypercapnic respiratory failure Likely secondary to MARCE/OHS Patient will benefit from AVAPS machine at home --History of MARCE Not on any CPAP right now --Sleep disordered breathing Continue with BiPAP nightly and as needed shortness of breath Plan: Chest x-ray from today still shows pleural effusion bilaterally with poor inspiratory effort Patient's underlying kyphoscoliosis is also playing a role in the hypercapnia that he has. He will benefit from AVAPS machine. Case management already working on getting the patient AVAPS machine. Keep O2 saturation between 90-92% We will give 20 mg of Lasix Recommend diuretics as tolerated. Para no further recommendation from pulmonary perspective We will sign off, please call directly with any questions Please note the above document was generated using voice recognition software. It may contain grammatical, syntax or spelling errors.Any formal questions or concerns about the content, text or information contained within the body of this dictation should be directly addressed to the provider for clarification. Admission and Anticipated Discharge Date Admission Date: August 30, 2023 Subjective Patient seen and examined at bedside. No acute distress, notable symptoms overnight He was saturating well on room air Denies any chest discomfort. Did use his BiPAP overnight No nausea vomiting Fair appetite Denies any dizziness, no headache Review of Systems 2 Review of Systems: All systems reviewed & are unremarkable except as noted in Subjective Physical Exam 2 Physical Exam: Constitutional: No acute distress HEENT: EOMI, PERRLA Respiratory system: Decreased air entry bilaterally, no wheeze, no rhonchi, mild crackles bilaterally CVS: S1-S2 positive, no murmurs or gallops Abdomen: Soft, nontender, nondistended, positive bowel sounds x4 Extremities: +2 pulses bilaterally radialis/ dorsalis pedis, no cyanosis, no edema Neuro: Awake alert oriented x3 Psych: Normal mood and affect G/U: Positive Bowman Musculoskeletal: Thoracic kyphoscoliosis appreciated Skin: no rashes, warm and dry Lymphatic: no cervical or axillary lymphadenopathy Results & Data Results & Data Vital Signs (Past 12 Hours) Vital Signs Temp Pulse Pulse Resp BP BP BP 09/04/23 04:00 36.6 C 64 18 114/61 09/04/23 03:20 72 19 09/04/23 00:00 36.5 C 65 18 117/64 09/03/23 23:23 26 L 94 H 09/03/23 23:00 71 20 09/03/23 22:55 70 09/03/23 22:30 75 10 L 09/03/23 20:30 09/03/23 20:00 78 20 166/55 H 09/03/23 20:00 36.6 C 116/88 Pulse Ox O2 Del Method O2 Flow Rate FiO2 09/04/23 04:00 96 BiPAP 09/04/23 03:20 94 30 09/04/23 00:00 96 BiPAP 09/03/23 23:23 94 30 09/03/23 23:00 93 09/03/23 22:55 09/03/23 22:30 95 09/03/23 20:30 Nasal Cannula 2 09/03/23 20:00 93 09/03/23 20:00 95 Nasal Cannula 2 Laboratory Results 09/04/23 04:22 09/04/23 04:22 PG Care Time/CCT Total # of Minutes Spent Total Time Spent with Patient: Total time spent is greater than 50% in coordination of care (as documented) at patient's floor/unit and/or counseling patient: Coding Level of Care Code 07139 SUB INP/OBS CARE 2/35MIN Diagnoses Bradycardia R00.1 Atrial fibrillation I48.91 Atrial fibrillation type: unspecified CAD (coronary artery disease) I25.10 Hypertension I10 Hypercholesterolemia E78.00 Prostate cancer C61
[2023-09-04] MEDS ORDERED: FUROSEMIDE INJ 20 MG/2 ML VIAL IV ONE (07:27)
[2023-09-04] MEDS: CHOLECALCIFEROL 1,000 UNITS 25 MCG TAB PO SCH (07:54)
[2023-09-04] MEDS: DOCUSATE SODIUM 100 MG CAP PO SCH ×2 (07:54→21:09)
[2023-09-04] MEDS: SENNA 8.6 MG TAB PO SCH (07:54)
[2023-09-04] MEDS: FAMOTIDINE 20 MG in SYRINGE 3 ML IV SCH ×2 (07:54→21:09)
[2023-09-04] MEDS: FINASTERIDE 5 MG TAB PO SCH (07:54)
[2023-09-04] MEDS ORDERED: IRON SUCROSE 200 MG in 0.9 % SODIUM CHLORIDE 100 ML IV ONE (08:00)
--- NOTE | 2023-09-04 12:38 | Cardiology Progress Note ---
Date of Service September 04, 2023 Assessment & Plan (1) Atrial fibrillation with slow ventricular response: (2) Syncope: (3) CAD (coronary artery disease): (4) S/P CABG (coronary artery bypass graft): Plan 1. Bradycardia: He underwent successful implantation of dual-chamber permanent pacemaker yesterday. No evident complication. At this point I think would be reasonable to reinstitute some beta-blockade. Likely metoprolol succinate 25 mg daily. This can be titrated to an increased dose in the outpatient setting if necessary. 2. Atrial fibrillation: He can be transition to apixaban. I would consider starting systemic anticoagulation on SaturdaySeptember 06. Once he has been anticoagulated for few weeks we can bring him back for cardioversion. 3. Hypotension. Resolved. Will restart low-dose metoprolol. 4. Mitral regurgitation: Moderate to severe. This can be followed over time. 5. Abnormal X-ray: Some evidence of pulmonary vascular congestion and left- sided pleural effusion. Diuretics ordered today. He may require additional doses. Admission and Anticipated Discharge Date Admission Date: August 30, 2023 Subjective This morning patient claimed he feeling well. He states that with the supplemental oxygen and he feels that his breathing is normal. No dyspnea. Minimal discomfort at the pacemaker implant site. No dizziness. No ambulation yet. Physical Exam Physical Exam: Alert. Oriented. Comfortable. Evaluation the device implant site reveals some mild ecchymosis. No hematoma or drainage. Results & Data Vital Signs (Past 12 Hours) Vital Signs Temp Pulse Pulse Resp BP Pulse Ox O2 Del Method 09/04/23 11:11 79 16 115/70 92 Nasal Cannula 09/04/23 11:09 72 09/04/23 08:12 Nasal Cannula 09/04/23 08:00 93 H 14 114/57 L 91 Nasal Cannula 09/04/23 08:00 72 09/04/23 04:00 36.6 C 64 18 114/61 96 BiPAP 09/04/23 03:20 72 19 94 O2 Flow Rate FiO2 09/04/23 11:11 2 09/04/23 11:09 09/04/23 08:12 2 09/04/23 08:00 2 09/04/23 08:00 09/04/23 04:00 09/04/23 03:20 30 Laboratory Results Abnormal Lab Results 09/04/23 04:22 WBC 10.13 RBC 3.18 L Hgb 9.5 L Hct 30.2 L MCV 95.0 MCH 29.9 MCHC 31.5 L RDW Std Deviation 56.8 H RDW Coeff of Alfonso 16.3 H Plt Count 165 MPV 9.7 Immature Gran % (Auto) 0.6 Neut % (Auto) 78.1 Lymph % (Auto) 5.8 Franklin % (Auto) 12.0 Eos % (Auto) 3.3 Baso % (Auto) 0.2 Neut # (Auto) 7.91 H Lymph # (Auto) 0.59 L Franklin # (Auto) 1.22 H Eos # (Auto) 0.33 Baso # (Auto) 0.02 Immature Gran # (Auto) 0.06 APTT 43.5 H* PTT Ratio 1.5 Sodium 138 Potassium 4.3 Chloride 100 Carbon Dioxide 36 H Anion Gap 2 L BUN 35 H Creatinine 0.62 Est Cr Clr Drug Dosing 89.8 Est GFR ( Amer) 102.7 Est GFR (Non-Af Amer) 88.6 BUN/Creatinine Ratio 56.5 H Glucose 97 Calcium 9.5 Magnesium 1.9 Iron 32 L Unsaturated IBC 132 L Diagnostic Findings Chest x-ray demonstrated stable lead position. No pneumothorax. Notable pulmonary vascular congestion and left pleural effusion. Low lung volumes Device interrogation revealed normal function of the atrial ventricular leads. (2) Syncope Syncope type: unspecified Qualified Code(s): R55 - Syncope and collapse
[2023-09-04] MEDS ORDERED: POLYETHYLENE (MIRALAX) 17 GM PACK PO ONE (17:30)
--- NOTE | 2023-09-04 17:37 | Hospitalist Progress Note ---
Date of Service September 04, 2023 Assessment & Plan (1) Acute respiratory failure with hypoxia and hypercapnia: Plan: Respiratory - Hypercarbic respiratory failure, MARCE - Multifactorial to scoliosis, underlying MARCE with chronic elevated HCO3 levels CM working on home Non invasive positive pressure ventilation - ICU providers did have long discussion with family regarding goals of care and possibility of not being able to get off of Ventilator -Patient requiring intermittent BiPAP for support will attempt to get Trelegy for at bedtime use at home. Certainly will use his BiPAP after anesthesia and when he takes daytime naps. (2) Acute heart failure with preserved ejection fraction: Plan: known CAD with history of CABG (3) UTI (urinary tract infection): Plan: Possible UTI - history of ureteral stricture frequent and recent instrumentation - continue with Cefepime - WBC elevated follow Urinary strictures, hx of prostate cancer - Appreciate Urology assistance, will go home with fuentes and follow up in office - Supportive care at this time (4) Atrial fibrillation with slow ventricular response: Plan: AFIB, Bradycardia, Shock resolved -Patient has pacemaker placed on 1128. Heparin is held for 24 hours given his recent procedure however patient is also noted to have a hemoglobin drop 3 g. He has no overt signs of bleeding at this time. If hemoglobin continues to trend downward may consider CT scan to evaluate for retroperitoneal bleed. Pepcid twice daily per cardiology consider restart AC Eliquis 48 hours after procedure if hgb stable Plan RENAL/LYTES - EM - LAST II- likely secondary to decreased oral intake over the past 48 hours, urine retention, as well as Diuretic Therapy - Avoid further nephrotoxic medications at this time - Hold on further diureses - Replete electrolytes HEME - no acute needs - down trend of hemogolobin over past few days- no evidence of acute blood loss - transfuse for HGB <8 or symptomatic iron low did give venofer 200mg iv x 1 Admission and Anticipated Discharge Date Admission Date: August 30, 2023 Subjective pt is without complaints except for weakness, is constipated Physical Exam Physical Exam: Patient is awake and alert appropriate. Card exam is distant but regular. There is a pressure dressing in his left chest. no significatn hematoma His lungs are clear his abdomen is slightly protuberant NABS soft and nontender Results & Data Results & Data Vital Signs (Past 12 Hours) Vital Signs Temp Pulse Pulse Resp BP BP Pulse Ox 09/04/23 15:39 97.9 F 79 24 115/61 94 09/04/23 15:00 09/04/23 11:11 79 16 115/70 92 09/04/23 11:09 72 09/04/23 08:12 09/04/23 08:00 93 H 14 114/57 L 91 09/04/23 08:00 72 O2 Del Method O2 Flow Rate FiO2 09/04/23 15:39 Nasal Cannula 2 09/04/23 15:00 Nasal Cannula 2 09/04/23 11:11 Nasal Cannula 2 09/04/23 11:09 09/04/23 08:12 Nasal Cannula 2 09/04/23 08:00 Nasal Cannula 2 09/04/23 08:00 Laboratory Results reviewed CBC reviewed chemistry PG Care Time/CCT Total # of Minutes Spent Total Time Spent with Patient: Total time spent is greater than 50% in coordination of care (as documented) at patient's floor/unit and/or counseling patient: Coding Level of Care Code 42603 SUB INP/OBS CARE 2/35MIN Diagnoses Acute respiratory failure with hypoxia and hypercapnia J96.01; J96.02 Acute heart failure with preserved ejection fraction I50.31 UTI (urinary tract infection) N39.0 Atrial fibrillation with slow ventricular response I48.91
[2023-09-04] MEDS: ATORVASTATIN 20 MG TAB PO SCH (21:09)
[2023-09-04] MEDS: cefTRIAXone SODIUM 2,000 MG in DEXTROSE 5 % MINI-B 50 ML IV SCH (21:09)
[2023-09-05 04:11] LABS: Basophils # (auto) 0.02 K/uL (0.00-0.20); Basophils % (auto) 0.2 %; Eosinophils # (auto) 0.23 K/uL (0.00-0.50); Eosinophils % (auto) 2.7 %; Hematocrit (blood only) 30.5 % (42.0-52.0); Hemoglobin 9.9 g/dl (14.0-18.0); Immature Granulocytes # (auto) 0.08 K/uL (0.01-0.20); Lymphocytes # (auto) 0.75 K/uL (1.20-3.40); Mean Corpuscular Hgb Conc 32.5 g/dL (32.0-36.0); Mean Corpuscular Volume 92.4 fL (80.0-100.0); Mean Platelet Volume 9.8 fL (9.4-12.4); Monocytes # (auto) 1.13 K/uL (0.11-0.59); Monocytes % (auto) 13.5 %; Neutrophils # (auto) 6.16 K/uL (1.40-6.50); Neutrophils % (auto) 73.6 %; Platelet Count 172 K/uL (130-400); RDW Coefficient of Variation 15.9 % (11.5-14.5); White Blood Count 8.37 K/ul (4.8-10.8)
[2023-09-05 04:29] LABS: BUN Creatinine Ratio 53.6 (10-20); Calcium 9.6 mg/dl (8.6-10.3); Creatinine Clr Calc Pharmacy 99.4 ml/min; Est GFR (Non-African American) 92.4 ml/min; Magnesium 1.6 mg/dl (1.7-2.4); Potassium 3.8 mmol/L (3.5-5.1)
[2023-09-05 04:53] LABS: Partial Thromboplastin Ratio 1.6
[2023-09-05 04:54] LABS: Partial Thromboplastin Time 45.3 Seconds (21.0-31.0)
[2023-09-05] MEDS: MAGNESIUM SULFATE / D5W 1 GM/100 ML BAG IV SCH ×2 (05:49→07:28)
--- NOTE | 2023-09-05 07:23 | Pulmonology Progress Note ---
Date of Service September 05, 2023 Assessment & Plan (1) Bradycardia: (2) Atrial fibrillation: Atrial fibrillation type: unspecified Qualified Code(s): I48.91 - Unspecified atrial fibrillation (3) CAD (coronary artery disease): (4) Hypertension: (5) Hypercholesterolemia: (6) Prostate cancer: Plan --Acute hypercapnic respiratory failure Likely secondary to MARCE/OHS Patient will benefit from AVAPS machine at home --History of MARCE Not on any CPAP right now --Sleep disordered breathing Continue with BiPAP nightly and as needed shortness of breath -- Metabolic alkalosis Likely compensation for chronic respiratory acidosis Diuretic use also playing its part Plan: In/out: -1677, urine output 2500 mL, -3.5 L since coming to the hospital We will give 250 mg of acetazolamide IV for the significant metabolic alkalosis, this will also help with diuresis Patient's underlying kyphoscoliosis is also playing a role in the hypercapnia that he has. He will benefit from AVAPS machine. Case management already working on getting the patient AVAPS machine. Keep O2 saturation between 90-92% Recommend diuretics as tolerated. No further recommendation from pulmonary perspective We will sign off, please call directly with any questions Please note the above document was generated using voice recognition software. It may contain grammatical, syntax or spelling errors.Any formal questions or concerns about the content, text or information contained within the body of this dictation should be directly addressed to the provider for clarification. Admission and Anticipated Discharge Date Admission Date: August 30, 2023 Subjective Patient seen and examined at bedside. No acute distress, notable symptoms overnight He was sitting up at the bed. Denied any chest pain Shortness of breath is improved Did use his BiPAP overnight He was saturating 97-98% on 4 L nasal cannula, high went down to 2 L. Has been urinating well No bowel movement, positive flatulence Review of Systems 2 Review of Systems: All systems reviewed & are unremarkable except as noted in Subjective Physical Exam 2 Physical Exam: Constitutional: No acute distress HEENT: EOMI, PERRLA Respiratory system: Decreased air entry bilaterally, no wheeze, no rhonchi, mild crackles bilaterally CVS: S1-S2 positive, no murmurs or gallops Abdomen: Soft, nontender, nondistended, positive bowel sounds x4 Extremities: +2 pulses bilaterally radialis/ dorsalis pedis, no cyanosis, no edema Neuro: Awake alert oriented x3 Psych: Normal mood and affect G/U: Positive Bowman Musculoskeletal: Thoracic kyphoscoliosis appreciated Skin: no rashes, warm and dry Lymphatic: no cervical or axillary lymphadenopathy Results & Data Results & Data Vital Signs (Past 12 Hours) Vital Signs Temp Pulse Pulse Resp BP Pulse Ox O2 Del Method 09/05/23 03:17 36.6 C 64 18 116/54 L 97 BiPAP 09/05/23 02:58 72 21 96 09/05/23 00:00 92 H 09/04/23 23:14 77 20 96 09/04/23 23:11 36.7 C 83 19 129/70 95 BiPAP 09/04/23 20:00 Nasal Cannula O2 Flow Rate FiO2 09/05/23 03:17 09/05/23 02:58 30 09/05/23 00:00 09/04/23 23:14 30 09/04/23 23:11 09/04/23 20:00 2 Laboratory Results 09/05/23 03:58 09/05/23 03:58 PG Care Time/CCT Total # of Minutes Spent Total Time Spent with Patient: Total time spent is greater than 50% in coordination of care (as documented) at patient's floor/unit and/or counseling patient: Coding Level of Care Code 58215 SUB INP/OBS CARE 2/35MIN Diagnoses Bradycardia R00.1 Atrial fibrillation I48.91 Atrial fibrillation type: unspecified CAD (coronary artery disease) I25.10 Hypertension I10 Hypercholesterolemia E78.00 Prostate cancer C61
[2023-09-05] MEDS ORDERED: acetaZOLAMIDE 250 MG in SYRINGE 0 ML IV STA (07:26)
[2023-09-05] MEDS: POLYETHYLENE (MIRALAX) 17 GM PACK PO SCH (07:48)
[2023-09-05] MEDS: FAMOTIDINE 20 MG in SYRINGE 3 ML IV SCH ×2 (07:48→20:32)
[2023-09-05] MEDS: CHOLECALCIFEROL 1,000 UNITS 25 MCG TAB PO SCH (07:49)
[2023-09-05] MEDS: FINASTERIDE 5 MG TAB PO SCH (07:49)
[2023-09-05] MEDS: DOCUSATE SODIUM 100 MG CAP PO SCH ×2 (07:49→20:34)
[2023-09-05] MEDS: SENNA 8.6 MG TAB PO SCH (07:49)
--- NOTE | 2023-09-05 13:59 | Communication Note ---
Date of Service: September 05, 2023 Due to patient's Kyphoscoliosis, he requires positioning of the body in ways that are not feasible in an ordinary bed. Will write script for a hospital bed.
--- NOTE | 2023-09-05 18:55 | Hospitalist Progress Note ---
Date of Service September 05, 2023 Assessment & Plan (1) Acute respiratory failure with hypoxia and hypercapnia: Plan: Respiratory - Hypercarbic respiratory failure, MARCE - Multifactorial to scoliosis, underlying MARCE with chronic elevated HCO3 levels CM working on home Non invasive positive pressure ventilation - ICU providers did have long discussion with family regarding goals of care and possibility of not being able to get off of Ventilator -Patient requiring intermittent BiPAP for support will attempt to get Trelegy for at bedtime use at home. Certainly will use his BiPAP after anesthesia and when he takes daytime naps. Remains on nasal cannula. Awaiting BIPAP for home. will discuss with PT. (2) Acute heart failure with preserved ejection fraction: Plan: known CAD with history of CABG (3) UTI (urinary tract infection): Plan: Possible UTI - history of ureteral stricture frequent and recent instrumentation - continue with Cefepime - WBC elevated follow Urinary strictures, hx of prostate cancer - Appreciate Urology assistance, will go home with fuentes and follow up in office - Supportive care at this time (4) Atrial fibrillation with slow ventricular response: Plan: AFIB, Bradycardia, Shock resolved -Patient has pacemaker placed on 1128. Heparin is held for 24 hours given his recent procedure however patient is also noted to have a hemoglobin drop 3 g. He has no overt signs of bleeding at this time. If hemoglobin continues to trend downward may consider CT scan to evaluate for retroperitoneal bleed. Pepcid twice daily per cardiology consider restart AC Eliquis 48 hours after procedure if hgb stable Plan RENAL/LYTES - EM - ALST II- likely secondary to decreased oral intake over the past 48 hours, urine retention, as well as Diuretic Therapy - Avoid further nephrotoxic medications at this time - Hold on further diureses - Replete electrolytes HEME - no acute needs - down trend of hemogolobin over past few days- no evidence of acute blood loss - transfuse for HGB <8 or symptomatic iron low did give venofer 200mg iv x 1 Admission and Anticipated Discharge Date Admission Date: August 30, 2023 Subjective 87 yo male reports no new symptoms. He has not reported significant improvement in his symptoms. Review of Systems Review of Systems: All systems reviewed & are unremarkable except as noted in Subjective Physical Exam Physical Exam: Patient is resting comfortably. Lung: bibasilar rales AAOx3 Results & Data Results & Data Vital Signs (Past 12 Hours) Vital Signs Temp Pulse Pulse Resp BP Pulse Ox Pulse Ox 09/05/23 16:39 36.4 C L 74 22 119/63 90 09/05/23 16:00 84 09/05/23 13:22 86 L 09/05/23 12:00 36.4 C L 80 22 112/55 L 93 09/05/23 08:45 09/05/23 08:43 82 09/05/23 07:49 37 C 82 18 114/57 L 93 O2 Del Method O2 Flow Rate O2 Flow Rate 09/05/23 16:39 Nasal Cannula 2 09/05/23 16:00 09/05/23 13:22 2 09/05/23 12:00 Nasal Cannula 2 09/05/23 08:45 Nasal Cannula 2 09/05/23 08:43 09/05/23 07:49 Nasal Cannula 2 PG Care Time/CCT Total # of Minutes Spent Total Time Spent with Patient: Total time spent is greater than 50% in coordination of care (as documented) at patient's floor/unit and/or counseling patient: Coding Level of Care Code 72263 SUB INP/OBS CARE 2/35MIN Diagnoses Acute respiratory failure with hypoxia and hypercapnia J96.01; J96.02 Acute heart failure with preserved ejection fraction I50.31 UTI (urinary tract infection) N39.0 Atrial fibrillation with slow ventricular response I48.91
[2023-09-05] MEDS: cefTRIAXone SODIUM 2,000 MG in DEXTROSE 5 % MINI-B 50 ML IV SCH (20:15)
[2023-09-05] MEDS: ATORVASTATIN 20 MG TAB PO SCH (20:32)
[2023-09-06 04:18] LABS: Basophils # (auto) 0.03 K/uL (0.00-0.20); Basophils % (auto) 0.4 %; Eosinophils # (auto) 0.22 K/uL (0.00-0.50); Eosinophils % (auto) 2.7 %; Hematocrit (blood only) 33.3 % (42.0-52.0); Hemoglobin 10.6 g/dl (14.0-18.0); Immature Granulocytes # (auto) 0.11 K/uL (0.01-0.20); Immature Granulocytes % (auto) 1.3 %; Lymphocytes # (auto) 0.97 K/uL (1.20-3.40); Lymphocytes % (auto) 11.7 %; Mean Corpuscular Hemoglobin 29.9 pg (25.0-34.0); Mean Corpuscular Hgb Conc 31.8 g/dL (32.0-36.0); Mean Corpuscular Volume 94.1 fL (80.0-100.0); Mean Platelet Volume 9.8 fL (9.4-12.4); Monocytes # (auto) 1.12 K/uL (0.11-0.59); Monocytes % (auto) 13.6 %; Neutrophils # (auto) 5.81 K/uL (1.40-6.50); Neutrophils % (auto) 70.3 %; Platelet Count 180 K/uL (130-400); RDW Standard Deviation 54.7 fL (36.4-46.3); Red Blood Count 3.54 M/uL (4.70-6.10); White Blood Count 8.26 K/ul (4.8-10.8)
[2023-09-06 04:36] LABS: BUN Creatinine Ratio 41.9 (10-20); Calcium 9.7 mg/dl (8.6-10.3); Est GFR (African American) 102.7 ml/min; Est GFR (Non-African American) 88.6 ml/min; Magnesium 1.9 mg/dl (1.7-2.4); Potassium 4.1 mmol/L (3.5-5.1)
[2023-09-06 04:45] LABS: Partial Thromboplastin Ratio 1.4; Partial Thromboplastin Time 39.3 Seconds (21.0-31.0)
[2023-09-06] MEDS: SENNA 8.6 MG TAB PO SCH (08:58)
[2023-09-06] MEDS: FINASTERIDE 5 MG TAB PO SCH (08:58)
[2023-09-06] MEDS: CHOLECALCIFEROL 1,000 UNITS 25 MCG TAB PO SCH (08:58)
[2023-09-06] MEDS: POLYETHYLENE (MIRALAX) 17 GM PACK PO SCH (08:58)
[2023-09-06] MEDS: FAMOTIDINE 20 MG in SYRINGE 3 ML IV SCH ×2 (08:59→20:15)
[2023-09-06] MEDS: DOCUSATE SODIUM 100 MG CAP PO SCH ×2 (08:59→20:15)
--- NOTE | 2023-09-06 09:11 | Pulmonology Progress Note ---
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 Pt has evidence for CO2 retention and requires noninvasive ventilation at home for optimal management. BiPAP was tried and failed to provide ventilation of adequate degree. Continuous alarm systems and backup are required for optimal management due to power outage. This patient is at high risk for respiratory failure without noninvasive ventilation at home. This could prevent repeated hospital admissions and improve the quality of life for the patient. --History of MARCE Not on any CPAP right now --Sleep disordered breathing Continue with BiPAP nightly and as needed shortness of breath -- Metabolic alkalosis Likely compensation for chronic respiratory acidosis Diuretic use also playing its part Plan: In/out: - 1825, urine output 1975 mL, - 5 L since coming to the hospital BUN/creatinine stable Give another dose of 250 mg acetazolamide IV for the significant metabolic alkalosis, this will also help with diuresis Patient's underlying kyphoscoliosis is also playing a role in the hypercapnia that he has. He will benefit from AVAPS machine. Case management already working on getting the patient AVAPS machine. Keep O2 saturation between 90-92% No further recommendation from pulmonary perspective We will sign off, please call directly with any questions Please note the above document was generated using voice recognition software. It may contain grammatical, syntax or spelling errors.Any formal questions or concerns about the content, text or information contained within the body of this dictation should be directly addressed to the provider for clarification. Admission and Anticipated Discharge Date Admission Date: August 30, 2023 Subjective Patient seen and examined at bedside. No acute distress, notable symptoms overnight He has been using his BiPAP overnight Denies any chest pain Has been urinating well No headache, no nausea, no vomiting Denies any chest pain No abdominal pain Fair appetite Review of Systems 2 Review of Systems: All systems reviewed & are unremarkable except as noted in Subjective Physical Exam 2 Physical Exam: Constitutional: No acute distress HEENT: EOMI, PERRLA Respiratory system: Decreased air entry bilaterally, no wheeze, no rhonchi, mild crackles bilaterally CVS: S1-S2 positive, positive 2 out of 6 systolic murmur appreciated best at aorta Abdomen: Soft, nontender, nondistended, positive bowel sounds x4 Extremities: +2 pulses bilaterally radialis/ dorsalis pedis, no cyanosis, no edema Neuro: Awake alert oriented x3 Psych: Normal mood and affect G/U: Positive Bowman Musculoskeletal: Thoracic kyphoscoliosis appreciated Skin: no rashes, warm and dry Lymphatic: no cervical or axillary lymphadenopathy Results & Data Results & Data Vital Signs (Past 12 Hours) Vital Signs Temp Pulse Resp Pulse Ox FiO2 09/05/23 23:32 82 20 93 30 09/05/23 22:38 36.6 C Laboratory Results 09/06/23 03:39 09/06/23 03:39 PG Care Time/CCT Total # of Minutes Spent Total Time Spent with Patient: Total time spent is greater than 50% in coordination of care (as documented) at patient's floor/unit and/or counseling patient: Coding Level of Care Code 23085 SUB INP/OBS CARE 2/35MIN Diagnoses Bradycardia R00.1 Atrial fibrillation I48.91 Atrial fibrillation type: unspecified CAD (coronary artery disease) I25.10 Hypertension I10 Hypercholesterolemia E78.00 Prostate cancer C61 Kyphoscoliosis M41.9
[2023-09-06] MEDS ORDERED: acetaZOLAMIDE 250 MG in SYRINGE 0 ML IV ONE (09:20)
[2023-09-06] MEDS: cefTRIAXone SODIUM 2,000 MG in DEXTROSE 5 % MINI-B 50 ML IV SCH (20:15)
[2023-09-06] MEDS: ATORVASTATIN 20 MG TAB PO SCH (20:15)
--- NOTE | 2023-09-06 22:28 | Hospitalist Progress Note ---
Date of Service September 06, 2023 Assessment & Plan (1) Acute respiratory failure with hypoxia and hypercapnia: Plan: Respiratory - Hypercarbic respiratory failure, MARCE - Multifactorial to scoliosis, underlying MARCE with chronic elevated HCO3 levels CM working on home Non invasive positive pressure ventilation - ICU providers did have long discussion with family regarding goals of care and possibility of not being able to get off of Ventilator -Patient requiring intermittent BiPAP for support will attempt to get Trelegy for at bedtime use at home. Certainly will use his BiPAP after anesthesia and when he takes daytime naps. Remains on nasal cannula. Awaiting BIPAP for home. Patient will need rehab. Plan for discharge on Saturday. (2) Acute heart failure with preserved ejection fraction: Plan: known CAD with history of CABG (3) UTI (urinary tract infection): Plan: Possible UTI - history of ureteral stricture frequent and recent instrumentation - continue with Cefepime - WBC elevated follow Urinary strictures, hx of prostate cancer - Appreciate Urology assistance, will go home with fuentes and follow up in office - Supportive care at this time (4) Atrial fibrillation with slow ventricular response: Plan: AFIB, Bradycardia, Shock resolved -Patient has pacemaker placed on 112. Heparin is held for 24 hours given his recent procedure however patient is also noted to have a hemoglobin drop 3 g. He has no overt signs of bleeding at this time. If hemoglobin continues to trend downward may consider CT scan to evaluate for retroperitoneal bleed. Pepcid twice daily per cardiology consider restart AC Eliquis 48 hours after procedure if hgb stable Plan RENAL/LYTES - EM - LAST II- likely secondary to decreased oral intake over the past 48 hours, urine retention, as well as Diuretic Therapy - Avoid further nephrotoxic medications at this time - Hold on further diureses - Replete electrolytes HEME - no acute needs - down trend of hemogolobin over past few days- no evidence of acute blood loss - transfuse for HGB <8 or symptomatic iron low did give venofer 200mg iv x 1 Admission and Anticipated Discharge Date Admission Date: August 30, 2023 Subjective 87 yo male reports no new symptoms. Review of Systems Review of Systems: All systems reviewed & are unremarkable except as noted in HPI & below Physical Exam Physical Exam: Patient is resting comfortably. Lung: bibasilar rales AAOx3 Results & Data Results & Data Vital Signs (Past 12 Hours) Vital Signs Temp Pulse Pulse Resp BP BP Pulse Ox 09/06/23 20:00 09/06/23 19:06 36.5 C 77 20 129/79 98 09/06/23 17:55 37 C 09/06/23 17:00 79 27 H 09/06/23 16:00 91 09/06/23 16:00 71 22 125/71 09/06/23 15:00 76 32 H 09/06/23 14:00 73 20 09/06/23 13:00 79 28 H 09/06/23 12:35 37 C 09/06/23 12:32 78 29 H 90 09/06/23 12:32 130/72 09/06/23 12:00 73 22 130/72 91 09/06/23 11:00 76 19 O2 Del Method O2 Flow Rate 09/06/23 20:00 Nasal Cannula 2 09/06/23 19:06 Nasal Cannula 2 09/06/23 17:55 09/06/23 17:00 09/06/23 16:00 Nasal Cannula 2 09/06/23 16:00 09/06/23 15:00 09/06/23 14:00 09/06/23 13:00 09/06/23 12:35 09/06/23 12:32 09/06/23 12:32 09/06/23 12:00 Nasal Cannula 2 09/06/23 11:00 PG Care Time/CCT Total # of Minutes Spent Total Time Spent with Patient: Total time spent is greater than 50% in coordination of care (as documented) at patient's floor/unit and/or counseling patient: Coding Level of Care Code 58984 SUB INP/OBS CARE 2/35MIN Diagnoses Acute respiratory failure with hypoxia and hypercapnia J96.01; J96.02 Acute heart failure with preserved ejection fraction I50.31 UTI (urinary tract infection) N39.0 Atrial fibrillation with slow ventricular response I48.91
[2023-09-07 04:48] LABS: Hematocrit (blood only) 33.9 % (42.0-52.0); Mean Corpuscular Hgb Conc 32.4 g/dL (32.0-36.0); Mean Corpuscular Volume 92.4 fL (80.0-100.0); Mean Platelet Volume 9.9 fL (9.4-12.4); Platelet Count 216 K/uL (130-400); RDW Coefficient of Variation 15.9 % (11.5-14.5); Red Blood Count 3.67 M/uL (4.70-6.10); White Blood Count 11.76 K/ul (4.8-10.8)
[2023-09-07 05:04] LABS: BUN Creatinine Ratio 42.4 (10-20); Calcium 9.6 mg/dl (8.6-10.3); Creatinine Clr Calc Pharmacy 77.4 ml/min; Est GFR (Non-African American) 86.3 ml/min; Potassium 4.6 mmol/L (3.5-5.1)
[2023-09-07] MEDS: CHOLECALCIFEROL 1,000 UNITS 25 MCG TAB PO SCH (08:13)
[2023-09-07] MEDS: POLYETHYLENE (MIRALAX) 17 GM PACK PO SCH (08:13)
[2023-09-07] MEDS: FAMOTIDINE 20 MG in SYRINGE 3 ML IV SCH ×2 (08:13→22:07)
[2023-09-07] MEDS: FINASTERIDE 5 MG TAB PO SCH (08:13)
[2023-09-07] MEDS: SENNA 8.6 MG TAB PO SCH (08:13)
[2023-09-07] MEDS: DOCUSATE SODIUM 100 MG CAP PO SCH ×2 (08:13→22:06)
--- NOTE | 2023-09-07 15:21 | Hospitalist Progress Note ---
Date of Service September 07, 2023 Assessment & Plan (1) Acute respiratory failure with hypoxia and hypercapnia: Plan: Respiratory - Hypercarbic respiratory failure, MARCE - Multifactorial to scoliosis, underlying MARCE with chronic elevated HCO3 levels CM working on home Non invasive positive pressure ventilation - ICU providers did have long discussion with family regarding goals of care and possibility of not being able to get off of Ventilator -Patient requiring intermittent BiPAP for support will attempt to get Trelegy for at bedtime use at home. Certainly will use his BiPAP after anesthesia and when he takes daytime naps. Remains on nasal cannula. Awaiting BIPAP for home. Patient will need rehab. Plan for discharge on Saturday. (2) Acute heart failure with preserved ejection fraction: Plan: known CAD with history of CABG (3) UTI (urinary tract infection): Plan: Possible UTI - history of ureteral stricture frequent and recent instrumentation - continue with Cefepime - WBC elevated follow Urinary strictures, hx of prostate cancer - Appreciate Urology assistance, will go home with fuentes and follow up in office - Supportive care at this time (4) Atrial fibrillation with slow ventricular response: Plan: AFIB, Bradycardia, Shock resolved -Patient has pacemaker placed on 1127. Heparin is held for 24 hours given his recent procedure however patient is also noted to have a hemoglobin drop 3 g. He has no overt signs of bleeding at this time. If hemoglobin continues to trend downward may consider CT scan to evaluate for retroperitoneal bleed. Pepcid twice daily per cardiology consider restart AC Eliquis 48 hours after procedure if hgb stable Plan RENAL/LYTES - EM - LAST II- likely secondary to decreased oral intake over the past 48 hours, urine retention, as well as Diuretic Therapy - Avoid further nephrotoxic medications at this time - Hold on further diureses - Replete electrolytes HEME - no acute needs - down trend of hemogolobin over past few days- no evidence of acute blood loss - transfuse for HGB <8 or symptomatic iron low did give venofer 200mg iv x 1 reviewed blood work on 09/07 Admission and Anticipated Discharge Date Admission Date: August 30, 2023 Subjective Patient reports no new symptoms. Review of Systems Review of Systems: All systems reviewed & are unremarkable except as noted in HPI & below Physical Exam Physical Exam: Patient is resting comfortably. Lung: bibasilar rales AAOx3 Results & Data Results & Data Vital Signs (Past 12 Hours) Vital Signs Temp Pulse Pulse Resp BP Pulse Ox O2 Del Method 09/07/23 12:00 36.4 C L 82 16 118/79 93 Nasal Cannula, BiPAP 09/07/23 08:53 Nasal Cannula, BiPAP 09/07/23 08:00 78 09/07/23 07:39 36.8 C 84 22 123/57 L 93 Nasal Cannula 09/07/23 03:59 82 21 96 O2 Flow Rate FiO2 09/07/23 12:00 2 09/07/23 08:53 2 09/07/23 08:00 09/07/23 07:39 2 09/07/23 03:59 30 PG Care Time/CCT Total # of Minutes Spent Total Time Spent with Patient: Total time spent is greater than 50% in coordination of care (as documented) at patient's floor/unit and/or counseling patient: Coding Level of Care Code 29655 SUB INP/OBS CARE 2/35MIN Diagnoses Acute respiratory failure with hypoxia and hypercapnia J96.01; J96.02 Acute heart failure with preserved ejection fraction I50.31 UTI (urinary tract infection) N39.0 Atrial fibrillation with slow ventricular response I48.91
[2023-09-07] MEDS: METOPROLOL SUCC 25MG EXT REL TAB PO SCH (20:32)
[2023-09-07] MEDS: ATORVASTATIN 20 MG TAB PO SCH (20:33)
[2023-09-07] MEDS: APIXABAN 5 MG TABLET PO SCH (20:33)
[2023-09-07] MEDS: cefTRIAXone SODIUM 2,000 MG in DEXTROSE 5 % MINI-B 50 ML IV SCH (20:33)
[2023-09-08 06:21] LABS: Basophils # (auto) 0.05 K/uL (0.00-0.20); Basophils % (auto) 0.4 %; Eosinophils # (auto) 0.26 K/uL (0.00-0.50); Eosinophils % (auto) 2.2 %; Hematocrit (blood only) 33.6 % (42.0-52.0); Immature Granulocytes # (auto) 0.18 K/uL (0.01-0.20); Immature Granulocytes % (auto) 1.5 %; Lymphocytes # (auto) 1.02 K/uL (1.20-3.40); Lymphocytes % (auto) 8.6 %; Mean Corpuscular Hemoglobin 30.1 pg (25.0-34.0); Mean Corpuscular Hgb Conc 32.7 g/dL (32.0-36.0); Mean Corpuscular Volume 91.8 fL (80.0-100.0); Mean Platelet Volume 9.4 fL (9.4-12.4); Monocytes # (auto) 1.48 K/uL (0.11-0.59); Monocytes % (auto) 12.4 %; Neutrophils # (auto) 8.92 K/uL (1.40-6.50); Neutrophils % (auto) 74.9 %; Platelet Count 238 K/uL (130-400); RDW Standard Deviation 53.5 fL (36.4-46.3); Red Blood Count 3.66 M/uL (4.70-6.10); White Blood Count 11.91 K/ul (4.8-10.8)
[2023-09-08 06:38] LABS: BUN Creatinine Ratio 45.8 (10-20); Calcium 9.6 mg/dl (8.6-10.3); Creatinine Clr Calc Pharmacy 86.5 ml/min; Est GFR (African American) 104.8 ml/min; Est GFR (Non-African American) 90.4 ml/min; Potassium 4.6 mmol/L (3.5-5.1)
[2023-09-08] MEDS: SENNA 8.6 MG TAB PO SCH (08:34)
[2023-09-08] MEDS: APIXABAN 5 MG TABLET PO SCH ×2 (08:34→20:18)
[2023-09-08] MEDS: CHOLECALCIFEROL 1,000 UNITS 25 MCG TAB PO SCH (08:34)
[2023-09-08] MEDS: DOCUSATE SODIUM 100 MG CAP PO SCH ×2 (08:34→20:18)
[2023-09-08] MEDS: FINASTERIDE 5 MG TAB PO SCH (08:34)
[2023-09-08] MEDS: POLYETHYLENE (MIRALAX) 17 GM PACK PO SCH (08:35)
[2023-09-08] MEDS: FAMOTIDINE 20 MG in SYRINGE 3 ML IV SCH ×2 (08:35→20:17)
[2023-09-08] MEDS ORDERED: POLYETHYLENE (MIRALAX) 17 GM PACK PO ONE (15:17)
--- NOTE | 2023-09-08 17:06 | Hospitalist Progress Note ---
Date of Service September 08, 2023 Assessment & Plan (1) Acute respiratory failure with hypoxia and hypercapnia: Plan: Respiratory - Hypercarbic respiratory failure, MARCE - Multifactorial to scoliosis, underlying MARCE with chronic elevated HCO3 levels CM working on home Non invasive positive pressure ventilation - ICU providers did have long discussion with family regarding goals of care and possibility of not being able to get off of Ventilator -Patient requiring intermittent BiPAP for support will attempt to get Trelegy for at bedtime use at home. Certainly will use his BiPAP after anesthesia and when he takes daytime naps. Remains on nasal cannula. Awaiting BIPAP for home. Patient will need rehab. Plan for discharge on Saturday. Patient has not had a BM for past few days, brittany increase miralax on 09/08 (2) Acute heart failure with preserved ejection fraction: Plan: known CAD with history of CABG (3) UTI (urinary tract infection): Plan: Possible UTI - history of ureteral stricture frequent and recent instrumentation - continue with Cefepime - WBC elevated follow Urinary strictures, hx of prostate cancer - Appreciate Urology assistance, will go home with fuentes and follow up in office - Supportive care at this time (4) Atrial fibrillation with slow ventricular response: Plan: AFIB, Bradycardia, Shock resolved -Patient has pacemaker placed on 1127. Heparin is held for 24 hours given his recent procedure however patient is also noted to have a hemoglobin drop 3 g. He has no overt signs of bleeding at this time. If hemoglobin continues to trend downward may consider CT scan to evaluate for retroperitoneal bleed. Pepcid twice daily per cardiology consider restart AC Eliquis 48 hours after procedure if hgb stable Plan RENAL/LYTES - EM - LAST II- likely secondary to decreased oral intake over the past 48 hours, urine retention, as well as Diuretic Therapy - Avoid further nephrotoxic medications at this time - Hold on further diureses - Replete electrolytes HEME - no acute needs - down trend of hemogolobin over past few days- no evidence of acute blood loss - transfuse for HGB <8 or symptomatic iron low did give venofer 200mg iv x 1 reviewed blood work on 09/07 Admission and Anticipated Discharge Date Admission Date: August 30, 2023 Subjective Patient reports no new symptoms. He has not had a BM today. Review of Systems Review of Systems: All systems reviewed & are unremarkable except as noted in HPI & below Physical Exam Physical Exam: Patient is resting comfortably. Lung: bibasilar rales AAOx3 Results & Data Results & Data Vital Signs (Past 12 Hours) Vital Signs Temp Pulse Resp BP Pulse Ox O2 Del Method O2 Flow Rate 09/08/23 15:00 36.5 C 87 18 119/71 99 Nasal Cannula 2 09/08/23 12:00 36.4 C L 77 20 100/66 98 Nasal Cannula 09/08/23 08:00 Nasal Cannula 2 09/08/23 08:00 36.5 C 74 18 115/66 97 Nasal Cannula 2 PG Care Time/CCT Total # of Minutes Spent Total Time Spent with Patient: Total time spent is greater than 50% in coordination of care (as documented) at patient's floor/unit and/or counseling patient: Coding Level of Care Code 56905 SUB INP/OBS CARE 2/35MIN Diagnoses Acute respiratory failure with hypoxia and hypercapnia J96.01; J96.02 Acute heart failure with preserved ejection fraction I50.31 UTI (urinary tract infection) N39.0 Atrial fibrillation with slow ventricular response I48.91
[2023-09-08] MEDS: ATORVASTATIN 20 MG TAB PO SCH (20:17)
[2023-09-08] MEDS: METOPROLOL SUCC 25MG EXT REL TAB PO SCH (20:18)
[2023-09-09 06:20] LABS: Hematocrit (blood only) 33.3 % (42.0-52.0); Mean Corpuscular Hemoglobin 29.8 pg (25.0-34.0); Mean Corpuscular Volume 90.2 fL (80.0-100.0); Mean Platelet Volume 9.5 fL (9.4-12.4); Platelet Count 234 K/uL (130-400); RDW Coefficient of Variation 16.1 % (11.5-14.5); RDW Standard Deviation 52.9 fL (36.4-46.3); Red Blood Count 3.69 M/uL (4.70-6.10)
[2023-09-09 06:39] LABS: BUN Creatinine Ratio 45.8 (10-20); Creatinine Clr Calc Pharmacy 86.5 ml/min; Est GFR (African American) 104.8 ml/min; Est GFR (Non-African American) 90.4 ml/min; Potassium 4.3 mmol/L (3.5-5.1)
[2023-09-09] MEDS: CHOLECALCIFEROL 1,000 UNITS 25 MCG TAB PO SCH (08:03)
[2023-09-09] MEDS: APIXABAN 5 MG TABLET PO SCH ×2 (08:03→19:39)
[2023-09-09] MEDS: DOCUSATE SODIUM 100 MG CAP PO SCH ×2 (08:03→19:38)
[2023-09-09] MEDS: FINASTERIDE 5 MG TAB PO SCH (08:03)
[2023-09-09] MEDS: SENNA 8.6 MG TAB PO SCH (08:03)
[2023-09-09] MEDS: FAMOTIDINE 20 MG in SYRINGE 3 ML IV SCH ×2 (10:24→19:41)
[2023-09-09] MEDS: POLYETHYLENE (MIRALAX) 17 GM PACK PO SCH (10:24)
[2023-09-09] MEDS: ATORVASTATIN 20 MG TAB PO SCH (19:39)
[2023-09-09] MEDS: METOPROLOL SUCC 25MG EXT REL TAB PO SCH (19:39)
--- NOTE | 2023-09-09 22:26 | Hospitalist Progress Note ---
Date of Service September 09, 2023 Assessment & Plan (1) Acute respiratory failure with hypoxia and hypercapnia: Plan: Respiratory - Hypercarbic respiratory failure, MARCE - Multifactorial to scoliosis, underlying MARCE with chronic elevated HCO3 levels CM working on home Non invasive positive pressure ventilation - ICU providers did have long discussion with family regarding goals of care and possibility of not being able to get off of Ventilator -Patient requiring intermittent BiPAP for support will attempt to get Trelegy for at bedtime use at home. Certainly will use his BiPAP after anesthesia and when he takes daytime naps. Remains on nasal cannula. Awaiting BIPAP for home. Patient will need rehab. Appears patient will have placement to SNF on 09/10 (2) Acute heart failure with preserved ejection fraction: Plan: known CAD with history of CABG (3) UTI (urinary tract infection): Plan: Possible UTI - history of ureteral stricture frequent and recent instrumentation - continue with Cefepime - WBC elevated follow Urinary strictures, hx of prostate cancer - Appreciate Urology assistance, will go home with fuentes and follow up in office - Supportive care at this time (4) Atrial fibrillation with slow ventricular response: Plan: AFIB, Bradycardia, Shock resolved -Patient has pacemaker placed on 1128. Heparin is held for 24 hours given his recent procedure however patient is also noted to have a hemoglobin drop 3 g. He has no overt signs of bleeding at this time. If hemoglobin continues to trend downward may consider CT scan to evaluate for retroperitoneal bleed. Pepcid twice daily per cardiology consider restart AC Eliquis 48 hours after procedure if hgb stable Plan RENAL/LYTES - EM - LAST II- likely secondary to decreased oral intake over the past 48 hours, urine retention, as well as Diuretic Therapy - Avoid further nephrotoxic medications at this time - Hold on further diureses - Replete electrolytes HEME - no acute needs - down trend of hemogolobin over past few days- no evidence of acute blood loss - transfuse for HGB <8 or symptomatic iron low did give venofer 200mg iv x 1 reviewed blood work on 09/07 Admission and Anticipated Discharge Date Admission Date: August 30, 2023 Subjective 87 yo male reports no new symptoms. Review of Systems Review of Systems: All systems reviewed & are unremarkable except as noted in HPI & below Physical Exam Physical Exam: Patient is resting comfortably. Lung: bibasilar rales AAOx3 Results & Data Results & Data Vital Signs (Past 12 Hours) Vital Signs Temp Pulse Resp BP BP Pulse Ox O2 Del Method 09/09/23 19:43 36.7 C 68 20 117/80 92 Room Air 09/09/23 19:41 Room Air 09/09/23 15:00 36.4 C L 60 16 118/69 94 Room Air 09/09/23 11:24 36.4 C L 64 17 102/70 102/70 93 Room Air PG Care Time/CCT Total # of Minutes Spent Total Time Spent with Patient: Total time spent is greater than 50% in coordination of care (as documented) at patient's floor/unit and/or counseling patient: Coding Level of Care Code 68630 SUB INP/OBS CARE 2/35MIN Diagnoses Acute respiratory failure with hypoxia and hypercapnia J96.01; J96.02 Acute heart failure with preserved ejection fraction I50.31 UTI (urinary tract infection) N39.0 Atrial fibrillation with slow ventricular response I48.91
[2023-09-10 06:28] LABS: Allen Test Pos (Pos)
[2023-09-10 06:29] LABS: Base Excess ABG 8.2 mEq/L (-9-1.8); HCO3 ABG 33 mmol/L (19-24); Oxygen Saturation ABG 95.9 % (90-95); PCO2 ABG 44 mmHg (35-46); PO2 ABG 71 mmHg (80-95); pH ABG 7.48 (7.35-7.45)
[2023-09-10 06:39] LABS: Hematocrit (blood only) 32.3 % (42.0-52.0); Hemoglobin 10.8 g/dl (14.0-18.0); Mean Corpuscular Hemoglobin 29.7 pg (25.0-34.0); Mean Corpuscular Hgb Conc 33.4 g/dL (32.0-36.0); Mean Corpuscular Volume 88.7 fL (80.0-100.0); Mean Platelet Volume 9.5 fL (9.4-12.4); Platelet Count 258 K/uL (130-400); RDW Coefficient of Variation 16.1 % (11.5-14.5); RDW Standard Deviation 52.1 fL (36.4-46.3); Red Blood Count 3.64 M/uL (4.70-6.10); White Blood Count 10.49 K/ul (4.8-10.8)
[2023-09-10 06:54] LABS: BUN Creatinine Ratio 39.1 (10-20); Calcium 9.9 mg/dl (8.6-10.3); Creatinine Clr Calc Pharmacy 79.8 ml/min; Est GFR (African American) 101.3 ml/min; Est GFR (Non-African American) 87.4 ml/min
[2023-09-10] MEDS: APIXABAN 5 MG TABLET PO SCH (08:17)
[2023-09-10] MEDS: FINASTERIDE 5 MG TAB PO SCH (08:18)
[2023-09-10] MEDS: CHOLECALCIFEROL 1,000 UNITS 25 MCG TAB PO SCH (08:18)
[2023-09-10] MEDS: SENNA 8.6 MG TAB PO SCH (08:18)
[2023-09-10] MEDS: FAMOTIDINE 20 MG in SYRINGE 3 ML IV SCH (08:26)
[2023-09-10] MEDS: POLYETHYLENE (MIRALAX) 17 GM PACK PO SCH (08:26)
[2023-09-10] MEDS: DOCUSATE SODIUM 100 MG CAP PO SCH (08:26)
--- NOTE | 2023-09-10 15:31 | Discharge Summary ---
Date of Service September 10, 2023 Admission HPI Per Admitting Provider Joni is an 87-year-old male with a past medical history of hypertension, CAD s/p CABG, hyperlipidemia, postoperative atrial fibrillation without recurrence not on anticoagulation who presents to the emergency department with progressive dyspnea over several months and who was found in a chair and appeared confused by family upon awakening. He was brought to the ER and was found to have symptomatic bradycardia was given a dose of atropine and subsequently started on a dobutamine drip. This was discontinued when patient had an episode of nonsustained ventricular tachycardia Joni is seen at the bedside. He reports he is at 2 episodes of passing out, 1 at home and 1 in the ER. His family initially thought this was a seizure he does not have history of seizure. They note he was sitting when he suddenly became unresponsive very pale and had extremity shaking. He did not have incontinence. This lasted for about a minute. He then woke up and was mentating normally and less than a minute. Did not have a prolonged episode of confusion. Did not have tongue biting. He has had no chest pain or chest pressure. He reports he has not passed out outside of this. He has had some mild shortness of breath which is improved at time of bedside assessment. He reports he has scoliosis so he has difficulty laying flat and does sometimes get short of breath when laying flat. He denies a history of heart failure, but did have triple bypass in 2015 in [place]. He denies history of stents. He does not take aspirin or blood thinners. He was on warfarin for 6 months after his bypass due to postprocedural A-fib, has not had A-fib since that time to his knowledge but has not had a monitor technician. He reports he was diagnosed with myasthenia gravis at 1 point, but on follow-up was told that this was either an incorrect diagnosis or in remission and has not needed any treatment for this. He does not notice that repetitive/actions cause fatigue or weakness, has not had weakness chewing, or visual disturbance. Does not have any superior gaze fatiguing While in the ER patient had a 5-second pause. He received atropine and was subsequently started on dobutamine. This improved his heart rate from the 30s to 7080s, but he had a run of nonsustained ventricular tachycardia. Patient was asymptomatic and normotensive during this. Dobutamine was discontinued. While at bedside subsequent on conversation he does have chronotropic response but drops to heart rate of 50s. Cardiology updated, beta-audra held. Patient reports that he would want procedures including a pacemaker or temporary pacing for treatment. He would be okay with defibrillation if he were to return to ventricular tachycardia, but in the event of a complete cardiac arrest he reports he would not want chest compressions or intubation and want to be allowed to pass and notes he also has an advanced directive consistent with this which list DNR/DNI. Family in agreement with this and will continue DNR/DNI. They are aware that he is at a risk of arrhythmia overnight, and that ventricular tachycardia which had occurred earlier with his dobutamine could be life-threatening or fatal. Medical History: Reviewed Medications: Reviewed Surgical History: Reviewed Family history: Reviewed Allergies: Reviewed Social History: Denies tobacco/alcohol Code Status: DNR/DNI Discharge Exam Patient is resting comfortably. Lung: bibasilar rales AAOx3 Discharge Data Allergies Allergy/AdvReac Type Severity Reaction Status Date / Time No Known Allergies Allergy Verified 08/30/23 16:35 Consultations 08/30/23 16:20 ED Decision to Admit Stat 08/30/23 19:24 Consult Powerhouse Electrician Routine 08/30/23 20:36 Consult Cardiology Routine 08/31/23 09:48 Consult Urology Routine Procedures Performed Operation Date: 09/03/23 10:00 Actual Procedures p Pacer with A/V Leads (Dual) - Nahum Sanderson MD s Bundle of his Recording - Nahum Sanderson MD Ordered Studies 08/30/23 18:49 CT head/brain wo con Stat 08/31/23 20:49 US Renal Bladder [US renal/blad retro comp] Stat 09/01/23 01:09 CT head/brain wo con Urgent 09/03/23 07:15 EP Lab Images for PACS ONCE Hospital Course (1) Acute respiratory failure with hypoxia and hypercapnia: Respiratory - Hypercarbic respiratory failure, MARCE - Multifactorial to scoliosis, underlying MARCE with chronic elevated HCO3 levels CM working on home Non invasive positive pressure ventilation - ICU providers did have long discussion with family regarding goals of care and possibility of not being able to get off of Ventilator -Patient requiring intermittent BiPAP for support will attempt to get Trelegy for at bedtime use at home. Certainly will use his BiPAP after anesthesia and when he takes daytime naps. Remains on nasal cannula. Awaiting BIPAP for home. Patient will need rehab. Appears patient will have placement to SNF on 09/10 (2) Acute heart failure with preserved ejection fraction: known CAD with history of CABG (3) UTI (urinary tract infection): Possible UTI - history of ureteral stricture frequent and recent instrumentation - continue with Cefepime - WBC elevated follow Urinary strictures, hx of prostate cancer - Appreciate Urology assistance, will go home with fuentes and follow up in office - Supportive care at this time (4) Atrial fibrillation with slow ventricular response: AFIB, Bradycardia, Shock resolved -Patient has pacemaker placed on 1128. Heparin is held for 24 hours given his recent procedure however patient is also noted to have a hemoglobin drop 3 g. He has no overt signs of bleeding at this time. If hemoglobin continues to trend downward may consider CT scan to evaluate for retroperitoneal bleed. Pepcid twice daily per cardiology consider restart AC Eliquis 48 hours after procedure if hgb stable Plan RENAL/LYTES - EM - LAST II- likely secondary to decreased oral intake over the past 48 hours, urine retention, as well as Diuretic Therapy - Avoid further nephrotoxic medications at this time - Hold on further diureses - Replete electrolytes HEME - no acute needs - down trend of hemogolobin over past few days- no evidence of acute blood loss - transfuse for HGB <8 or symptomatic iron low did give venofer 200mg iv x 1 reviewed blood work on 09/07 Discharge Plan Discharge Items Patient Disposition: Transfer Shelter Fac Reason For Visit: SX BRADYCARDIA Discharge Diagnosis: sx bradycardia Condition on Discharge: Serious Activity: Resume your previous activity Lifting Comment: No lifting left arm above the shoulder behind the neck for 6 weeks Bathing: Keep incision dry Bathing Comment: Keep wound dry and Steri-Strips intact until follow-up Non-emergency contact: Primary Care Provider Call non-emergency contact if: you have any medication questions Follow-up/Referrals: James Chapman DO [Primary Care Provider] - Diet: Heart Healthy Fluids: 1500ml (6 cups) Addtl Attending Provider Instructions: Followup with Urology this for voiding trial. Patient would like to followup with Dr. Wayne from [place]. Plan to continue BIPAP at rehab. Pending Studies at Discharge: No Stand-Alone Forms: My [facility] Skilled Items Patient informed of condition?: Yes DNR: Yes Discharge Level of Care: Acute rehab Communicable Disease: No Discharge Prognosis: Stable Lines: None Urinary Catheter: Yes Medications and DC Order Prescriptions: New Eliquis 5 mg Tablet 5 mg PO BID Qty: 60 0RF docusate sodium 100 mg Capsule 100 mg PO BID Qty: 30 0RF polyethylene glycol 3350 [Miralax] 17 gram Powder In Packet 17 g PO DAILY Qty: 14 0RF sennosides [Senokot] 8.6 mg Tablet 8.6 mg PO QAM Qty: 14 0RF Continued atorvastatin 20 mg tablet 20 mg PO HS Qty: 30 0RF tamsulosin 0.4 mg capsule 0.4 mg PO DAILY Qty: 30 0RF finasteride 5 mg tablet 5 mg PO DAILY Qty: 30 0RF cholecalciferol (vitamin D3) 50 mcg (2,000 unit) capsule 50 mcg PO DAILY Qty: 30 0RF Changed metoprolol succinate 50 mg tablet extended release 24 hr 25 mg PO HS Qty: 15 0RF Discontinued lisinopril 10 mg tablet 10 mg PO HS Discharge Orders: Discharge Order (Routine); Ordered 09/10/23 Ordered By: Brian Cisse Admission Data Admit Date/Time: 08/30/23 18:06 Attending Provider: Brian Cisse Admit Provider: Jon Maya Primary Care Provider: James Chapman Other Providers: Jon Maya; London Ordaz; Johnson Gonzales Other Interventions: Discharge Summary Assessment (RN) Last Done: 09/10/23 15:17 Coding Diagnoses Acute respiratory failure with hypoxia and hypercapnia J96.01; J96.02 Acute heart failure with preserved ejection fraction I50.31 UTI (urinary tract infection) N39.0 Atrial fibrillation with slow ventricular response I48.91
== END 2023-09-10 15:42 | DRG 242 ==
LOC: ED 14:38 → 1E 18:06 → SUATTDRO 18:06 → 1E 19:16 → 2S 08-31 17:40 → 1E 09-01 13:23 → 2S 09-07 14:56

== ENCOUNTER 2023-11-24 14:25 | Inpatient (IN) ==
--- NOTE | 2023-11-24 15:15 | Emergency Department Note ---
History of Present Illness General Chief complaint: Wound Stated complaint: DISCHARGE, REDNESS AROUND SURGICAL DRAIN Time Seen by Provider: 11/24/23 14:50 History of Present Illness Maximum Pain Intensity: 2 This is a an 88-year-old male that presents to the emergency department via private vehicle accompanied by and daughter with complaints of "bleeding from the surgical site". The patient, and daughter all help provide history. Patient was here at the [facility] recently for a urologic procedure on November 21, 2023. The patient's postop diagnosis was: infected, nonfunctioning penile implant. Urethral stricture, benign prostatic hyperplasia with lower urinary tract symptoms. Procedures performed at that time was exploration of scrotum/penis, washout of wound, explantation penile implant, cystoscopy and catheter placement. The patient notes some discomfort postoperatively at the operative site but that has resolved. The patient is on anticoagulant therapy secondary to atrial fibrillation and notes that there is no bleeding from the wound. In addition, patient and daughter at bedside expressed concern about taking care of the patient at home as the patient's notes that she is experiencing back issues which today made it very challenging to care for his wounds. The patient denies any fevers or chills. No nausea or vomiting. Patient is currently on oral levofloxacin. Home Medications Medication Instructions Recorded Confirmed Type apixaban 5 mg tablet (Eliquis) 5 mg PO BID #60 tabs 09/10/23 11/24/23 Rx atorvastatin 20 mg tablet 20 mg PO HS #30 tabs 09/10/23 11/24/23 Rx metoprolol succinate 50 mg 25 mg (1/2 x 50 mg) PO HS #15 tabs 09/10/23 11/24/23 Rx tablet,extended release 24 hr melatonin 3 mg capsule 3 mg PO HS 10/09/23 11/24/23 History cholecalciferol (vitamin D3) 50 50 mcg PO QAM 11/12/23 11/24/23 History mcg (2,000 unit) capsule docusate sodium 100 mg capsule 100 mg PO UD PRN Constipation 11/12/23 11/24/23 History finasteride 5 mg tablet 5 mg PO QAM 11/12/23 11/24/23 History lisinopril 2.5 mg tablet 2.5 mg PO QPM 11/12/23 11/24/23 History mupirocin 2 % topical ointment 1 applic topical DAILY 11/12/23 11/24/23 History polyethylene glycol 3350 17 gram 17 g PO UD PRN Constipation 11/12/23 11/21/23 History oral powder packet (Miralax) sennosides 8.6 mg tablet (Senokot) 0 mg PO UD PRN Constipation 11/12/23 11/21/23 History tamsulosin 0.4 mg capsule 0.4 mg PO QAM 11/12/23 11/24/23 History levofloxacin 500 mg tablet 500 mg PO DAILY 7 days #7 tabs 11/22/23 11/24/23 Rx Allergies Allergy/AdvReac Type Severity Reaction Status Date / Time No Known Allergies Allergy Verified 11/21/23 07:58 Past Med/Surg History Medical History Chronic anemia Pulmonary hypertension Echo 08/2023: RVSP elevated at 50-60 mmHg Mitral regurgitation Echo 08/2023: Moderate to severe MR. Eccentric, posteriorly directed mitral regurgitation jet. Testicular pain Per urology visit 11/06/23, "concerns for developing infected implant and possible ongoing issues with infection" Lymphoma "Behind right eye" 2007, hx radiation tx Scoliosis Pacemaker Implanted 08/2023, [employer] Last Pacer check 10/16/23 Follows with [facility] cardiology Atrial fibrillation Hypercholesterolemia Hypertension Remote hx CAD (coronary artery disease) CABG x3 (2014) Basal cell carcinoma of skin of nose Hx Myasthenia gravis without (acute) exacerbation Dx 2002, told "in remission" by last neurology visit per patient, no recent issues Essential (primary) hypertension Atherosclerosis of coronary artery bypass graft(s), unspecified, with other forms of angina pectoris CABG x3 (2014) Prostate cancer 1999, hx brachytherapy Surgical History History of brachytherapy History of penile implant History of colonoscopy History of cardiac cath 2014 > CABG x3 S/P placement of cardiac pacemaker Implanted 08/2023 S/P CABG (coronary artery bypass graft) CABG x3 Social History Smoking Status: Never smoker Second Hand Exposure: No; Do You Dip or Chew Tobacco: No; Hx Alcohol Use: Yes Alcohol type: wine Hx Substance Use: No Preferred Language: [place] Communication Ability: Effective Cassandra Consultant Required: No Beliefs That Will Affect Care: None Current Living Situation: Spouse Feels Safe at Home: Yes Assistive Devices: Walker and Other Review of Systems A total of 10 systems reviewed and were otherwise negative Physical Exam Vital Signs Vital Signs - 24 hr 11/24/23 15:55 11/24/23 16:04 11/24/23 16:04 Pulse Rate 65 60 Pulse Rate [Apical] 60 Respiratory Rate 20 26 H Blood Pressure 115/71 Blood Pressure [Right Arm] 115/71 Blood Pressure Mean 85 Blood Pressure Mean [Right Arm] 85 Pulse Oximetry 93 93 Oxygen Delivery Method Room Air VITAL SIGNS - Vital signs and nursing notes were reviewed. Stable and afebrile. GENERAL -88-year-old male appearing his stated age who is in no acute distress. Communicates well with provider and answers questions appropriately. SKIN -overlying the right superior scrotal region there is a sutured drain in place with a small amount of edema. No erythema. Small amount of bright red blood coming from the wound channel where the drain is in place. The drain tubing appears to have some darker blood with minimal blood in the collection bulb. No purulence. No crepitus. HEAD - NC/AT. EYES - Sclera anicteric. NECK - No nuchal rigidity. LUNGS - CTA CARDIAC - IRR ABDOMEN - Abdominal contour normal without pulsations or visible masses. BS normoactive all four quadrants. No tenderness, palpable masses, hepatosplenomegaly, or ascites noted. GUconsent was obtained, male RN bar staff at bedside. There is no crepitus to the scrotal region. Penis with catheter in place. Small amount of bleeding that is bright red in nature from the right superior scrotal wound where there is a drain tube in place. Drain is sutured in place. NEUROLOGIC -no deficits on exam. PSYCH -patient is alert, oriented and cooperative on exam Course Administered Medications Finasteride (Finasteride 5 Mg Tab) 5 mg PO QAM [facility] Stop: 12/25/23 08:59 Last Admin: 11/25/23 10:22 Dose: 5 mg Documented By: SHANNA Co-signed By: AMNA Cefepime HCl 2,000 mg/ Syringe 20 mls @ 5 mls/min IV Q12H GAMAL; Protocol Stop: 12/04/23 20:59 Last Admin: 11/25/23 10:08 Dose: 5 mls/min Documented By: SHANNA Co-signed By: AMNA Admin: 11/24/23 21:11 Dose: 5 mls/min Documented By: DELIA Melatonin (Melatonin 3 Mg Tab) 3 mg PO HS GAMAL Stop: 12/24/23 20:59 Last Admin: 11/25/23 00:32 Dose: 3 mg Documented By: ACC Mupirocin (Mupirocin 2% Oint 22 Gm Tube) 1 appln TOP DAILY GAMAL Stop: 12/25/23 08:59 Last Admin: 11/25/23 10:22 Dose: 1 appln Documented By: SHANNA Co-signed By: AMNA Medical Decision Making Laboratory Data 11/25/23 06:04 11/25/23 06:04 Lab Results 11/24/23 Range/Units 15:30 WBC 7.98 (4.8-10.8) K/ul RBC 3.68 L (4.70-6.10) M/uL Hgb 11.1 L (14.0-18.0) g/dl Hct 33.6 L (42.0-52.0) % MCV 91.3 (80.0-100.0) fL MCH 30.2 (25.0-34.0) pg MCHC 33.0 (32.0-36.0) g/dL RDW Std Deviation 53.1 H (36.4-46.3) fL RDW Coeff of Alfonso 15.8 H (11.5-14.5) % Plt Count 235 (130-400) K/uL MPV 9.2 L (9.4-12.4) fL Immature Gran % (Auto) 0.4 % Neut % (Auto) 75.0 % Lymph % (Auto) 9.1 % Sutton % (Auto) 13.2 % Eos % (Auto) 2.0 % Baso % (Auto) 0.3 % Neut # (Auto) 5.99 (1.40-6.50) K/uL Lymph # (Auto) 0.73 L (1.20-3.40) K/uL Sutton # (Auto) 1.05 H (0.11-0.59) K/uL Eos # (Auto) 0.16 (0.00-0.50) K/uL Baso # (Auto) 0.02 (0.00-0.20) K/uL Immature Gran # (Auto) 0.03 (0.01-0.20) K/uL PT 13.1 H (9.0-12.0) Seconds INR 1.2 H (0.9-1.1) APTT 47 H (21-31) Seconds PTT Ratio 1.7 Sodium 136 (136-145) mmol/L Potassium 3.8 (3.5-5.1) mmol/L Chloride 98 (98-107) mmol/L Carbon Dioxide 35 H (21-32) mmol/L Anion Gap 3 (3-11) BUN 10 (6-23) mg/dl Creatinine 0.62 (0.6-1.4) mg/dl Est Cr Clr Drug Dosing Not Reportable Est GFR ( Amer) 101.9 ml/min Est GFR (Non-Af Amer) 88.0 ml/min BUN/Creatinine Ratio 16.1 (10-20) Glucose 94 (70-99(Fasting)) mg/dl Calcium 9.7 (8.6-10.3) mg/dl Total Bilirubin 0.4 (0.2-1.0) mg/dl AST 9 L (13-39) U/L ALT 6 L (7-52) U/L Alkaline Phosphatase 59 (34-104) U/L Total Protein 6.7 (6.0-8.3) gm/dl Albumin 3.3 L (3.4-5.0) gm/dl Globulin 3.4 (2.5-4.0) gm/dl Albumin/Globulin Ratio 1.0 (0.9-2) MDM Narrative Patient was seen and evaluated as above in room A04. Review was performed of triage nursing notes and vital signs. I did review pertinent previous visits and patient history. After obtaining a thorough history and physical examination the above work up was performed. Patient presents to us today for assessment of bleeding from the surgical site and also concern from daughter and at bedside as the is trying to care for the patient at home but there is difficulty in doing so in regard to wound management and such. The patient is well-appearing and nontoxic on exam. Vital signs stable. No sign of additional infection at this time. Options of care discussed with the patient as well as family at bedside. IV access was established. Labs were drawn. No leukocytosis. Minor anemia noted with hemoglobin of 11.1 which is not decreased compared to previous. Coags reveal mild elevation of INR at 1.2. Carbon dioxide at 35. No evidence of kidney or liver failure. I did discuss presentation with the on-call urologist, Dr. Vernon at 4:15 PM on 11/25/2023. At this time we did agree on potentially holding the Eliquis for short period of time to help with hemostasis at the surgical incision as well as direct pressure to the site. Furthermore, the patient will require additional care moving forward as managing his wound and such at home has been challenging for his spouse noting her comorbidities as well. At this time, decision was made to proceed with inpatient management and potential placement for further care once the surgical site no longer is oozing blood. I did obtain consent from the patient and cleanse the integument around the drain site with sterile saline and a sterile fashion. Sterile 4 x 4's were then placed around the area followed by gentle pressure overlying the area. Hemostasis is noted and there is minimal to no further bleeding at this time. Case discussed with the hospitalist service. Please refer to further documentation regarding his stay. In the evaluation and treatment of this patient the following differential diagnoses were entertained: UTI, pyelonephritis, surgical site infection, necrotizing fasciitis, [place]'s gangrene, hemorrhage, among others Impression & Plan S/P urological surgery, Bleeding from wound, Anticoagulated Discharge Plan Visit Data Chief Complaint: Wound Stated Complaint: DISCHARGE, REDNESS AROUND SURGICAL DRAIN ED Provider: Ralph Ferrell ED Midlevel Provider: Vijay French Discharge Problem: S/P urological surgery, Bleeding from wound, Anticoagulated Patient Disposition: Admitted As Inpatient Condition: Good Discharge Instructions Interventions: ED Discharge Assessment Last Done: 11/25/23 00:47 Addendum November 25, 2023 15:44 HPI: The patient is an 88-year-old gentleman with a past medical history of pulmonary hypertension, atrial fibrillation, hypertension, hyperlipidemia, CAD, myasthenia gravis who presents emergency department for evaluation of bleeding from his surgical wound in the setting of having explantation of an infected nonfunctioning penile implant. Furthermore, family expressed concern for her ability to care for the patient at home given his current state of health. Patient currently is on levofloxacin. A/P: WBC and platelets within normal limits. H/H improved from prior. Chemistry without metabolic acidosis. LFTs unremarkable. MARTA Bamat reviewed patient's presentation with urology. Patient will require additional wound care and likely placement. Patient referred to hospital service for further management. I was consulted by the Advanced Practice Provider and was substantively involved in the patient's visit.This includes aspects of the HPI, MDM, diagnostic interpretations, and disposition/plan. I discussed the case with the MARTA and agree with the findings and plan as documented in MARTA Bamat's note.
[2023-11-24 15:54] LABS: Basophils # (auto) 0.02 K/uL (0.00-0.20); Basophils % (auto) 0.3 %; Eosinophils # (auto) 0.16 K/uL (0.00-0.50); Hematocrit (blood only) 33.6 % (42.0-52.0); Hemoglobin 11.1 g/dl (14.0-18.0); Immature Granulocytes # (auto) 0.03 K/uL (0.01-0.20); Immature Granulocytes % (auto) 0.4 %; Lymphocytes # (auto) 0.73 K/uL (1.20-3.40); Lymphocytes % (auto) 9.1 %; Mean Corpuscular Hemoglobin 30.2 pg (25.0-34.0); Mean Corpuscular Volume 91.3 fL (80.0-100.0); Mean Platelet Volume 9.2 fL (9.4-12.4); Monocytes # (auto) 1.05 K/uL (0.11-0.59); Monocytes % (auto) 13.2 %; Neutrophils # (auto) 5.99 K/uL (1.40-6.50); Platelet Count 235 K/uL (130-400); RDW Coefficient of Variation 15.8 % (11.5-14.5); RDW Standard Deviation 53.1 fL (36.4-46.3); Red Blood Count 3.68 M/uL (4.70-6.10); White Blood Count 7.98 K/ul (4.8-10.8)
[2023-11-24 16:05] LABS: Alanine Aminotransferase 6 U/L (7-52); Albumin Level 3.3 gm/dl (3.4-5.0); Alkaline Phosphatase 59 U/L (34-104); Anion Gap 3 (3-11); Aspartate Aminotransferase 9 U/L (13-39); BUN Creatinine Ratio 16.1 (10-20); Bilirubin,Total 0.4 mg/dl (0.2-1.0); Blood Urea Nitrogen 10 mg/dl (6-23); Calcium 9.7 mg/dl (8.6-10.3); Carbon Dioxide 35 mmol/L (21-32); Chloride 98 mmol/L (98-107); Est GFR (African American) 101.9 ml/min; Globulin 3.4 gm/dl (2.5-4.0); Glucose 94 mg/dl (70-99(Fasting)); Potassium 3.8 mmol/L (3.5-5.1); Sodium 136 mmol/L (136-145); Total Protein 6.7 gm/dl (6.0-8.3)
[2023-11-24 16:27] LABS: INR 1.2 (0.9-1.1); Partial Thromboplastin Ratio 1.7; Partial Thromboplastin Time 47 Seconds (21-31); Prothrombin Time 13.1 Seconds (9.0-12.0)
--- NOTE | 2023-11-24 17:01 | History & Physical Report ---
Date of Service November 24, 2023 Assessment & Plan (1) S/P urological surgery: Plan: Removal of infected penile implant on 11/21; discharged on levofloxacin Patient notes that he was also taking ciprofloxacin outpatient; ?Unclear based on current records why he was taking both levofloxacin + ciprofloxacin Patient developed bleeding from his surgical site on 11/24, and was concerned that CLARKE drain was occluded Hgb 11.1 HCT 33.6 on arrival, which is actually slightly higher from H&H on 11/22 Hold Eliquis for now Apply/change dressing to surgical site as needed Wound culture on 11/21/2023 grew Pseudomonas resistant to fluoroquinolones Start patient on cefepime 2000 mg IV q12h Urology consulted Per urology, no revision planned at this time in terms of procedure Acetaminophen as needed for pain/fever Bactroban 2% topical application daily Catheter care QS A.m. CBC, BMP, mag (2) Benign prostatic hyperplasia with lower urinary tract symptoms: Plan: Continue Proscar, tamsulosin (3) Atrial fibrillation with slow ventricular response: Plan: S/p pacemaker Hold Eliquis (as above) (4) Hypertension: Plan: Lisinopril and metoprolol currently on hold (planned reassessment on postop outpatient) Continue to hold for now (5) Obstructive sleep apnea: Plan: Planned Home sleep study For now, supplemental oxygen as needed HS (6) Kyphoscoliosis: Plan: Chronic; noted Plan Disposition: Admit to [facility] with telemetry DNR/DNI Regular diet VTE PPx: SCDs (hold Eliquis x48h in setting of surgical site/catheter site bleeding) History of Present Illness Chief Complaint: Bleeding from procedure site Primary Care Provider: James Chapman DO Joni is an 88yo male with PMH of BPH, HLD, syncope, A-fib, heart failure, MARCE, and HTN. He presented due to bleeding concern on 11/24 from a recent surgical site drain. Urologic procedure on 11/21 for removal of infected, nonfunctioning penile implant. Patient denies pain at the drain site. He reports that he took all of his regular morning medications this morning, including Eliquis. He does note that he has been holding metoprolol and lisinopril since his procedure. Of note, the patient also has been on both levofloxacin and ciprofloxacin post procedure. He denies any hematuria since his procedure. Bowman has been in place since procedure without blockages. No at home oxygen use. No sick contacts. Patient notes he has sleep apnea, but is set to have a home sleep study. Patient denies smoking, tobacco use, and alcohol use. Patient was 91% on RA at time of admission; vitals otherwise stable. ED course: ROS: Patient endorses bleeding from surgical site. Patient denies fever, chills, nightsweats, dizzy, lightheadedness, JEAN [place]APTISTE, chest pain, SOB, abdominal pain, N/V/D, no burning sensation in genitals, hematuria, new back pain, or N/T in legs. Allergies Allergy/AdvReac Type Severity Reaction Status Date / Time No Known Allergies Allergy Verified 11/21/23 07:58 Home Medications Medication Instructions Recorded Confirmed Type apixaban 5 mg tablet (Eliquis) 5 mg PO BID #60 tabs 09/10/23 11/24/23 Rx atorvastatin 20 mg tablet 20 mg PO HS #30 tabs 09/10/23 11/24/23 Rx metoprolol succinate 50 mg 25 mg (1/2 x 50 mg) PO HS #15 tabs 09/10/23 11/24/23 Rx tablet,extended release 24 hr melatonin 3 mg capsule 3 mg PO HS 10/09/23 11/24/23 History cholecalciferol (vitamin D3) 50 50 mcg PO QAM 11/12/23 11/24/23 History mcg (2,000 unit) capsule docusate sodium 100 mg capsule 100 mg PO UD PRN Constipation 11/12/23 11/24/23 History finasteride 5 mg tablet 5 mg PO QAM 11/12/23 11/24/23 History lisinopril 2.5 mg tablet 2.5 mg PO QPM 11/12/23 11/24/23 History mupirocin 2 % topical ointment 1 applic topical DAILY 11/12/23 11/24/23 History polyethylene glycol 3350 17 gram 17 g PO UD PRN Constipation 11/12/23 11/21/23 History oral powder packet (Miralax) sennosides 8.6 mg tablet (Senokot) 0 mg PO UD PRN Constipation 11/12/23 11/21/23 History tamsulosin 0.4 mg capsule 0.4 mg PO QAM 11/12/23 11/24/23 History levofloxacin 500 mg tablet 500 mg PO DAILY 7 days #7 tabs 11/22/23 11/24/23 Rx Past Med/Surg History Medical History (Updated 11/21/23 @ 16:10 by Sue Meier PA-C) Chronic anemia Pulmonary hypertension Echo 08/2023: RVSP elevated at 50-60 mmHg Mitral regurgitation Echo 08/2023: Moderate to severe MR. Eccentric, posteriorly directed mitral regurgitation jet. Testicular pain Per urology visit 11/06/23, "concerns for developing infected implant and possible ongoing issues with infection" Lymphoma "Behind right eye" 2007, hx radiation tx Scoliosis Pacemaker Implanted 08/2023, [employer] Last Pacer check 10/16/23 Follows with [facility] cardiology Atrial fibrillation Hypercholesterolemia Hypertension Remote hx CAD (coronary artery disease) CABG x3 (2014) Basal cell carcinoma of skin of nose Hx Myasthenia gravis without (acute) exacerbation Dx 2002, told "in remission" by last neurology visit per patient, no recent issues Essential (primary) hypertension Atherosclerosis of coronary artery bypass graft(s), unspecified, with other forms of angina pectoris CABG x3 (2014) Prostate cancer 1999, hx brachytherapy Surgical History (Updated 11/24/23 @ 21:13 by Stoney Waite PA-C) History of brachytherapy History of penile implant History of colonoscopy History of cardiac cath 2014 > CABG x3 S/P placement of cardiac pacemaker Implanted 08/2023 S/P CABG (coronary artery bypass graft) CABG x3 Social History Smoking Status: Never smoker Second Hand Exposure: No; Do You Dip or Chew Tobacco: No; Hx Alcohol Use: No Hx Substance Use: No Preferred Language: Mohawk Communication Ability: Effective Parliamentary Counsel Required: No Beliefs That Will Affect Care: None Current Living Situation: Spouse Feels Safe at Home: Yes Assistive Devices: Walker Review of Systems Review of Systems: See HPI above Physical Exam Physical Exam: General: no acute distress; non-toxic appearing; well-nourished; cooperative HEENT: normocephalic, atraumatic; no scleral icterus; PERRLA w/ EOMs intact; moist mucus membrane; vision and hearing grossly intact Neck: supple; no JVD; no lymphadenopathy; trachea midline Skin: warm, dry without signs of tenting; no cyanosis; no rashes, bruising, lesions, or erythema noted CV: chest wall NTP; irregularly irregular rhythm; S1/S2 normal; no murmurs/rubs/gallops; pulses intact and symmetric at radial, DP, and PT Lungs: no acute respiratory distress; symmetrical chest wall expansion; clear breath sounds across all lung donaldson w/o adventitious sounds; no wheezing ABD: Soft, NTP; BS present; no rebound/guarding; no ascites; no distention; negative CVA tenderness : Suprapubic region mildly TTP and edematous, nonerythematous; minimal gross hematuria from the Bowman catheter site; surgical site without signs of drainage, erythema, or swelling prior to dressing; CLARKE drain exhibits moderate clotting/occlusion MSK: no tics or fasciculations; no edema noted in the LEs b/l, nonerythematous Neuro: A&Ox3; normal mood and affect; fluent speech; no focal deficits; sensation grossly intact in the LEs b/l Results & Data Results & Data Vital Signs (Past 12 Hours) Vital Signs Temp Pulse Pulse Resp BP BP Pulse Ox 11/24/23 16:04 60 20 115/71 93 11/24/23 15:55 65 11/24/23 14:28 36.6 C 78 20 148/80 H 92 O2 Del Method 11/24/23 16:04 Room Air 11/24/23 15:55 11/24/23 14:28 Room Air Laboratory Results Abnormal lab results 11/24/23 Range/Units 15:30 RBC 3.68 L (4.70-6.10) M/uL Hgb 11.1 L (14.0-18.0) g/dl Hct 33.6 L (42.0-52.0) % RDW Std Deviation 53.1 H (36.4-46.3) fL RDW Coeff of Alfonso 15.8 H (11.5-14.5) % MPV 9.2 L (9.4-12.4) fL Lymph # (Auto) 0.73 L (1.20-3.40) K/uL Reeves # (Auto) 1.05 H (0.11-0.59) K/uL PT 13.1 H (9.0-12.0) Seconds INR 1.2 H (0.9-1.1) APTT 47 H (21-31) Seconds Carbon Dioxide 35 H (21-32) mmol/L AST 9 L (13-39) U/L ALT 6 L (7-52) U/L Albumin 3.3 L (3.4-5.0) gm/dl Code Status & VTE Plan Code Status DNR/DNI VTE Prophylaxis Plan VTE Prophylaxis will be ordered: Yes Supervising Physician Co-Signing Physician Notes Joni is an 88-year-old male with a past medical history of A-fib with bradycardia s/p pacemaker, myasthenia gravis, BPH with LUTS, MARCE, urethral stricture was recently seen for an infected penile implant s/p scrotum/penis exploration, wound washout, implant explantation, and antibiotic treatment.. He was discharged on 11/22/2023 on 7 additional days of levofloxacin/converted from inpatient Zosyn. Patient reports he has been taking both cipro and levofloxacin, but was prescribed levaquin on discharge as noted. No fevers, chills, or sweats. Pt lives at home with his , but cannot care for him with his increased care requirements. His CLARKE/surgical drain sight is also with a slow ooze surrounding the drain with minimal drainage into the CLARKE itself. Pt is anticoagulated on eliquis for Afib. Pt denies pain, post op pain has resolved. Discussed w pts daughter and family, after discussing ongoing bleeding with a family friend was recommended to have bleeding evaluation a Case was discussed with Urology. Direct pressure to area to minimize bleeding. No revision recommended in absence of hgb decrease or continuous bleeding. REcommend holding Eliquis for a short period of time. Surgical Site Bleeding: Hold eliquis x48 hours. Patient is in A-fib aware of increased thromboembolic risk while this is held. Apply direct pressure to wound. Urology following. Continue Bowman. continue levaquin as noted. Weakness: PT/OT/CM consulted for placement. PG Care Time/CCT Total # of Minutes Spent Total Time Spent with Patient: Total time spent is greater than 50% in coordination of care (as documented) at patient's floor/unit and/or counseling patient: C[place] [address] INT INP/OBS CARE 1/40MIN Patient Type Established History Detailed Exam Detailed Medical Decision Making Low Complexity Diagnoses S/P urological surgery Z98.890 Benign prostatic hyperplasia with lower urinary tract symptoms N40.1 Atrial fibrillation with slow ventricular response I48.91 Primary hypertension I10 Hypertension type: primary hypertension Obstructive sleep apnea G47.33 Kyphoscoliosis M41.9 (4) Hypertension Hypertension type: primary hypertension Qualified Code(s): I10 - Essential (primary) hypertension
[2023-11-24] MEDS ORDERED: ACETAMINOPHEN 325 MG TAB PO PRN (20:21)
[2023-11-24] MEDS ORDERED: ONDANSETRON INJ 2 MG/ML 2 ML VIAL IV PRN (20:21)
[2023-11-24] MEDS: CEFEPIME 2,000 MG in SYRINGE 0 ML IV SCH (21:11)
[2023-11-25] MEDS: MELATONIN 3 MG TAB PO SCH (00:32)
[2023-11-25 06:58] LABS: Basophils # (auto) 0.02 K/uL (0.00-0.20); Basophils % (auto) 0.3 %; Eosinophils # (auto) 0.18 K/uL (0.00-0.50); Eosinophils % (auto) 2.5 %; Hematocrit (blood only) 31.8 % (42.0-52.0); Hemoglobin 10.6 g/dl (14.0-18.0); Immature Granulocytes # (auto) 0.03 K/uL (0.01-0.20); Immature Granulocytes % (auto) 0.4 %; Lymphocytes # (auto) 0.96 K/uL (1.20-3.40); Lymphocytes % (auto) 13.2 %; Mean Corpuscular Hemoglobin 30.2 pg (25.0-34.0); Mean Corpuscular Hgb Conc 33.3 g/dL (32.0-36.0); Mean Corpuscular Volume 90.6 fL (80.0-100.0); Mean Platelet Volume 9.6 fL (9.4-12.4); Monocytes % (auto) 12.4 %; Neutrophils # (auto) 5.19 K/uL (1.40-6.50); Neutrophils % (auto) 71.2 %; Platelet Count 216 K/uL (130-400); RDW Coefficient of Variation 15.9 % (11.5-14.5); RDW Standard Deviation 52.7 fL (36.4-46.3); Red Blood Count 3.51 M/uL (4.70-6.10); White Blood Count 7.28 K/ul (4.8-10.8)
[2023-11-25 07:25] LABS: BUN Creatinine Ratio 21.1 (10-20); Calcium 9.5 mg/dl (8.6-10.3); Creatinine Clr Calc Pharmacy 87.9 ml/min; Est GFR (African American) 105.5 ml/min; Magnesium 1.7 mg/dl (1.7-2.4); Potassium 3.9 mmol/L (3.5-5.1)
[2023-11-25] MEDS: FINASTERIDE 5 MG TAB PO SCH (10:22)
[2023-11-25] MEDS: MUPIROCIN 2% OINT 22 GM TUBE TOP SCH (10:22)
--- NOTE | 2023-11-25 11:31 | Hospitalist Progress Note ---
Date of Service November 25, 2023 Assessment & Plan (1) Pseudomonas aeruginosa infection: Plan: On 11/21/23 patient underwent exploration of Scrotum/Penis, Washout of wound, Explantation of an infected penile Implant, Cystoscopy, and catheter placement. This procedure was done due to an infected, nonfunctioning penile implant. 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 Intra-op culture grew pseudomonas. Was sent home with levaquin. However, his pseudomonas is quinolone resistant. At time of admission yesterday was placed on cefepime IV. Will continue such while here. Suspect he will need 10-14 days of cefepime IV. Will correspond with Dr Wayne from [facility] [place] Urology. Could consider ID consult. Will need midline PICC or u/s-guided IV for abx post-d/c. (2) Infection of penile implant: Plan: 11/21/23 - explantation of such see #1 above (3) S/P urological surgery: Plan: see #1 above had bleeding from the scrotal incision/wound at home - none seen while here, and H/H are very stable Eliquis is on hold for now will defer to urology when Eliquis can be resumed (4) Benign prostatic hyperplasia with lower urinary tract symptoms: Plan: Continue Proscar, tamsulosin Fuentes in place (5) Atrial fibrillation with slow ventricular response: Plan: Pacing on monitor Holding Eliquis (as above) Can resume low-dose metoprolol succ (6) Hypertension: Plan: Resume metoprolol succ Can hold SIMA for now (7) Obstructive sleep apnea: Plan: Suspected By report he has an upcoming home sleep study? (8) Kyphoscoliosis: Plan: Chronic; no issues Denied any pain Plan PT, OT payal requested Likely to need rehab post-d/c I updated the pt's by phone this evening Admission and Anticipated Discharge Date Admission Date: November 24, 2023 Subjective no events overnight denies any significant pain/scrotal pain fuentes in place draining clear yellow urine appetite is good; eating 100% of meals he had had bleeding from his scrotal incision at home - none seen here Review of Systems Review of Systems: gen - no fevers or chills cv - no cp, no orthopnea pulm - no dyspnea GI - had BM yesterday; no N/V Physical Exam Physical Exam: gen - awake/alert, NAD, nontoxic musculo - kyphotic mouth - MMM neck - no JVD heart - RRR, s1 s2, 3/6 near holosystolic murmur LLSB lungs - CTA b/l abd - soft NT ND BS+ ext - no edema, pulses 2+ b/l - drain in place just superior to where the penis meets the lower abdominal wall; incision over scrotum intact with sutures; mild erythema of scrotum with scrotal swelling; mildly tender over scrotum with palpation; drain shows serosanguinous fluid Results & Data Results & Data Vital Signs (Past 12 Hours) Vital Signs Temp Pulse Pulse Resp BP Pulse Ox O2 Del Method 11/25/23 08:18 36.7 C 65 20 119/72 92 Room Air 11/25/23 08:17 Room Air 11/25/23 07:00 77 11/25/23 04:00 36.7 C 64 18 126/76 98 Room Air 11/25/23 02:13 67 11/25/23 01:59 36.9 C 88 16 139/88 93 Room Air Laboratory Results Laboratory Results - last 24 hr 11/24/23 11/25/23 15:30 06:04 WBC 7.98 7.28 RBC 3.68 L 3.51 L Hgb 11.1 L 10.6 L Hct 33.6 L 31.8 L MCV 91.3 90.6 MCH 30.2 30.2 MCHC 33.0 33.3 RDW Std Deviation 53.1 H 52.7 H RDW Coeff of Alfonso 15.8 H 15.9 H Plt Count 235 216 MPV 9.2 L 9.6 Immature Gran % (Auto) 0.4 0.4 Neut % (Auto) 75.0 71.2 Lymph % (Auto) 9.1 13.2 Dale % (Auto) 13.2 12.4 Eos % (Auto) 2.0 2.5 Baso % (Auto) 0.3 0.3 Neut # (Auto) 5.99 5.19 Lymph # (Auto) 0.73 L 0.96 L Dale # (Auto) 1.05 H 0.90 H Eos # (Auto) 0.16 0.18 Baso # (Auto) 0.02 0.02 Immature Gran # (Auto) 0.03 0.03 PT 13.1 H INR 1.2 H APTT 47 H PTT Ratio 1.7 Sodium 136 137 Potassium 3.8 3.9 Chloride 98 101 Carbon Dioxide 35 H 33 H Anion Gap 3 3 BUN 10 12 Creatinine 0.62 0.57 L Est Cr Clr Drug Dosing Not Reportable 87.9 Est GFR ( Amer) 101.9 105.5 Est GFR (Non-Af Amer) 88.0 91.0 BUN/Creatinine Ratio 16.1 21.1 H Glucose 94 87 Calcium 9.7 9.5 Magnesium 1.7 Total Bilirubin 0.4 AST 9 L ALT 6 L Alkaline Phosphatase 59 Total Protein 6.7 Albumin 3.3 L Globulin 3.4 Albumin/Globulin Ratio 1.0 Diagnostic Findings INTRA-OP CULTURE Source: Scrotum OV Order: Ordered: Aer/Cait Cult/Sm Comments: Comment scrotal wound Procedure Result Verified Site Gram Stain Final 11/21/23 Gram Stain Result Many WBCs Seen No Organisms Seen Aero/Cait Cult Preliminary 11/25/23 Organism 1 Pseudomonas aeruginosa Quantity Few Sens Sensitivities to Follow No Anaerobes Isolated No Anaerobes Isolated +MixWound Plus Low Counts of Probable Skin Valencia P aerugino RX M.I.C. --- --------- Cefepime S 8 Ceftazidime S 4 Ciprofloxacin R >2 Gentamicin I 8 Levofloxacin R >4 Meropenem S <=1 Tobramycin S <=4 Pip/Tazo S <=16 S = SENSITIVE I = INTERMEDIATE R = RESISTANT PG Care Time/CCT Total # of Minutes Spent Total Time Spent with Patient: Total time spent is greater than 50% in coordination of care (as documented) at patient's floor/unit and/or counseling patient: Coding Level of Care Code 06591 SUB INP/OBS CARE 235MIN Diagnoses Pseudomonas aeruginosa infection A49.8 Infection of penile implant T83.61XA S/P urological surgery Z98.890 Benign prostatic hyperplasia with lower urinary tract symptoms N40.1 Atrial fibrillation with slow ventricular response I48.91 Primary hypertension I10 Hypertension type: primary hypertension Obstructive sleep apnea G47.33 Kyphoscoliosis M41.9 (6) Hypertension Hypertension type: primary hypertension Qualified Code(s): I10 - Essential (primary) hypertension
--- NOTE | 2023-11-25 12:07 | Urology Consultation ---
Date of Consultation November 25, 2023 Assessment & Plan (1) S/P urological surgery: (2) Infection of penile implant: (3) Pseudomonas aeruginosa infection: Plan 88yo M who is s/p Exploration of Scrotum/Penis, Washout of wound, Explantation of penile Implant, Cystoscopy, and catheter placement on 11/21/[address] Wayne for removal of infected and nonfunctioning penile implant. Patients became concerned that the CLARKE drain was occluded and had noted a large amount of bloody drainage around drain site. He was on Levofloxacin outpatient. Wound culture on 11/21/2023 grew Pseudomonas resistant to fluoroquinolones. - Afebrile and hemodynamically stable. - Labs reviewedwhite count 7.28, hemoglobin 10.6, creatinine 0.57. - Wound culture on 11/21/2023 grew Pseudomonas resistant to fluoroquinolones. - On IV cefepime per culture sensitivities. - Bowman intact and draining clear yellow urine. - CLARKE drain with minimal serosanguineous drainage. Continue to monitor. - No plan for urological intervention. - Continue supportive care. - Continue IV antibiotic therapy. Unfortunately there are no oral antibiotic options on recent wound culture. - Maintain Bowman catheter and CLARKE drain. - Apply/change dressing to drain site as needed. - Anticoagulation on hold. Can likely resume later today or tomorrow. - Urology will follow along. Plan of care reviewed with Dr. Wayne, on-call urologist. History of Present Illness Attending Physician: Obed Quinteros MD History of Present Illness 88-year-old male with a PMHx of BPH, HLD, syncope, A-fib, heart failure, MARCE, and HTN who presented to the ED 11/24 due to bleeding concern from a recent surgical site drain. Patient is s/p Exploration of Scrotum/Penis, Washout of wound, Explantation of penile Implant, Cystoscopy, and catheter placement on 11/21/[address] Wayne for removal of infected and nonfunctioning penile implant. Patient became concerned that the CLARKE drain was occluded and had noted a large amount of bloody drainage around drain site. He was on Levofloxacin outpatient. Wound culture on 11/21/2023 grew Pseudomonas resistant to fluoroquinolones. On arrival he was afebrile and hemodynamically stable. Labs showing no leukocytosis, hemoglobin 10.6, and stable creatinine. His Eliquis was placed on hold. He was started on IV Cefepime. Patient admitted to medicine service for continued care and management. Patient examined at bedside this AM. Awake, resting in bed on arrival. No acute distress. Bowman intact and draining clear yellow urine. CLARKE drain intact with minimal serosanguineous drainage. Denies any pain at present. No fever, chills, nausea, or vomiting. Allergies Allergy/AdvReac Type Severity Reaction Status Date / Time No Known Allergies Allergy Verified 11/21/23 07:58 Home Medications Medication Instructions Recorded Confirmed Type apixaban 5 mg tablet (Eliquis) 5 mg PO BID #60 tabs 09/10/23 11/24/23 Rx atorvastatin 20 mg tablet 20 mg PO HS #30 tabs 09/10/23 11/24/23 Rx metoprolol succinate 50 mg 25 mg (1/2 x 50 mg) PO HS #15 tabs 09/10/23 11/24/23 Rx tablet,extended release 24 hr melatonin 3 mg capsule 3 mg PO HS 10/09/23 11/24/23 History cholecalciferol (vitamin D3) 50 50 mcg PO QAM 11/12/23 11/24/23 History mcg (2,000 unit) capsule docusate sodium 100 mg capsule 100 mg PO UD PRN Constipation 11/12/23 11/24/23 History finasteride 5 mg tablet 5 mg PO QAM 11/12/23 11/24/23 History lisinopril 2.5 mg tablet 2.5 mg PO QPM 11/12/23 11/24/23 History mupirocin 2 % topical ointment 1 applic topical DAILY 11/12/23 11/24/23 History polyethylene glycol 3350 17 gram 17 g PO UD PRN Constipation 11/12/23 11/21/23 History oral powder packet (Miralax) sennosides 8.6 mg tablet (Senokot) 0 mg PO UD PRN Constipation 11/12/23 11/21/23 History tamsulosin 0.4 mg capsule 0.4 mg PO QAM 11/12/23 11/24/23 History levofloxacin 500 mg tablet 500 mg PO DAILY 7 days #7 tabs 11/22/23 11/24/23 Rx Patient History Medical History Chronic anemia Pulmonary hypertension Echo 08/2023: RVSP elevated at 50-60 mmHg Mitral regurgitation Echo 08/2023: Moderate to severe MR. Eccentric, posteriorly directed mitral regurgitation jet. Testicular pain Per urology visit 11/06/23, "concerns for developing infected implant and possible ongoing issues with infection" Lymphoma "Behind right eye" 2007, hx radiation tx Scoliosis Pacemaker Implanted 08/2023, [employer] Last Pacer check 10/16/23 Follows with [facility] cardiology Atrial fibrillation Hypercholesterolemia Hypertension Remote hx CAD (coronary artery disease) CABG x3 (2014) Basal cell carcinoma of skin of nose Hx Myasthenia gravis without (acute) exacerbation Dx 2002, told "in remission" by last neurology visit per patient, no recent issues Essential (primary) hypertension Atherosclerosis of coronary artery bypass graft(s), unspecified, with other forms of angina pectoris CABG x3 (2014) Prostate cancer 1999, hx brachytherapy Surgical History History of brachytherapy History of penile implant History of colonoscopy History of cardiac cath 2014 > CABG x3 S/P placement of cardiac pacemaker Implanted 08/2023 S/P CABG (coronary artery bypass graft) CABG x3 Social History Smoking Status: Never smoker Second Hand Exposure: No; Do You Dip or Chew Tobacco: No; Hx Alcohol Use: Yes Alcohol type: wine Hx Substance Use: No Preferred Language: Irish Communication Ability: Effective Cyber Threat Analyst Required: No Beliefs That Will Affect Care: None Current Living Situation: Spouse Feels Safe at Home: Yes Assistive Devices: Walker and Other Review of Systems Review of Systems: All systems reviewed & are unremarkable except as noted in HPI & below Physical Exam Constitutional: no acute distress Respiratory: no respiratory distress and no labored breathing Musculoskeletal: Head/Neck/Chest: normocephalic Skin: No visible rashes or lesions to exposed skin areas Neurologic: moves all extremities and awake Psychiatric: A+Ox3, euthymic affect Genitourinary: Bowman intact and draining clear yellow urine CLARKE drain intact with minimal serosanguineous drainage Scrotal surgical site intact with sutures with mild erythema and edema. No drainage appreciated on exam. No fluctuance or crepitus. Results & Data Vital Signs (Past 12 Hours) Vital Signs Temp Pulse Pulse Resp BP Pulse Ox O2 Del Method 11/25/23 08:18 36.7 C 65 20 119/72 92 Room Air 11/25/23 08:17 Room Air 11/25/23 07:00 77 11/25/23 04:00 36.7 C 64 18 126/76 98 Room Air 11/25/23 02:13 67 11/25/23 01:59 36.9 C 88 16 139/88 93 Room Air PG Care Time/CCT Total # of Minutes Spent Total Time Spent with Patient: Total time spent is greater than 50% in coordination of care (as documented) at patient's floor/unit and/or counseling patient: Coding Level of Care Code 33953 INT INP/OBS CARE 2/55MIN Diagnoses S/P urological surgery Z98.890 Infection of penile implant T83.61XA Pseudomonas aeruginosa infection A49.8
[2023-11-26 06:40] LABS: Basophils # (auto) 0.02 K/uL (0.00-0.20); Basophils % (auto) 0.2 %; Eosinophils # (auto) 0.24 K/uL (0.00-0.50); Eosinophils % (auto) 2.4 %; Hemoglobin 10.7 g/dl (14.0-18.0); Immature Granulocytes # (auto) 0.04 K/uL (0.01-0.20); Immature Granulocytes % (auto) 0.4 %; Lymphocytes # (auto) 0.78 K/uL (1.20-3.40); Lymphocytes % (auto) 7.6 %; Mean Corpuscular Hemoglobin 30.2 pg (25.0-34.0); Mean Corpuscular Hgb Conc 33.4 g/dL (32.0-36.0); Mean Corpuscular Volume 90.4 fL (80.0-100.0); Mean Platelet Volume 9.4 fL (9.4-12.4); Monocytes # (auto) 1.13 K/uL (0.11-0.59); Monocytes % (auto) 11.1 %; Neutrophils # (auto) 7.99 K/uL (1.40-6.50); Neutrophils % (auto) 78.3 %; Platelet Count 247 K/uL (130-400); RDW Coefficient of Variation 15.9 % (11.5-14.5); RDW Standard Deviation 52.7 fL (36.4-46.3); Red Blood Count 3.54 M/uL (4.70-6.10)
[2023-11-26 07:01] LABS: Calcium 9.5 mg/dl (8.6-10.3); Creatinine Clr Calc Pharmacy 68.6 ml/min; Est GFR (African American) 95.3 ml/min; Est GFR (Non-African American) 82.2 ml/min; Potassium 4.1 mmol/L (3.5-5.1)
--- NOTE | 2023-11-26 14:18 | Urology Progress Note ---
Date of Service November 26, 2023 Assessment & Plan (1) Pseudomonas aeruginosa infection: (2) Bleeding from wound: (3) S/P urological surgery: (4) Infection of penile implant: Plan 88yo M who is s/p Exploration of Scrotum/Penis, Washout of wound, Explantation of penile Implant, Cystoscopy, and catheter placement on 11/21/[address] Wayne for removal of infected and nonfunctioning penile implant. Patients became concerned that the CLARKE drain was occluded and had noted a large amount of bloody drainage around drain site. He was on Levofloxacin outpatient. Wound culture on 11/21/2023 grew Pseudomonas resistant to fluoroquinolones. - Afebrile and hemodynamically stable. - Labs reviewedwhite count 10.20, hemoglobin stable 10.7, creatinine 0.73. - Wound culture on 11/21/2023 grew Pseudomonas resistant to fluoroquinolones. - On IV cefepime per culture sensitivities. - Bowman intact and draining clear yellow urine. - CLARKE drain with minimal serosanguineous drainage. Continue to monitor. - No plan for urological intervention. - Continue supportive care. - Continue IV antibiotic therapy. He will need 10-14 days of IV antibiotics. - Continue Bowman catheter. - Maintain CLARKE drain for now. Can likely be removed prior to d/c. - Pt had some bleeding from scrotal incision at home but non seen while here. - Apply/change dressing to drain site as needed. - OK to resume anticoagulation from standpoint. - Urology will follow. Admission and Anticipated Discharge Date Admission Date: November 24, 2023 Subjective Pt examined at bedside this AM. Awake, resting in bed on arrival. No acute distress. Bowman draining clear yellow urine. CLARKE drain with small amount of serosanguineous drainage. Denies f/c/n/v. Denies any pain or discomfort at present. Review of Systems Constitutional: as per Subjective / HPI Gastrointestinal: as per Subjective / HPI Genitourinary: + as per Subjective / HPI Physical Exam Constitutional: no acute distress Respiratory: no respiratory distress and no labored breathing Musculoskeletal: Head/Neck/Chest: normocephalic Skin: No visible rashes or lesions to exposed skin areas Neurologic: moves all extremities and awake Psychiatric: A+Ox3, euthymic affect Genitourinary: Bowman intact and draining clear yellow urine CLARKE drain intact with minimal serosanguineous drainage Scrotal surgical site intact with sutures with mild erythema and edema. No drainage appreciated on exam. No fluctuance or crepitus. No tenderness with palpation. Results & Data Vital Signs (Past 12 Hours) Vital Signs Temp Pulse Pulse Pulse Resp BP Pulse Ox 11/26/23 10:28 36.8 C 80 22 124/71 95 11/26/23 07:58 63 11/26/23 07:44 36.9 C 78 18 118/71 92 11/26/23 04:11 36.6 C 77 18 114/76 93 11/26/23 01:12 73 O2 Del Method 11/26/23 10:28 Room Air 11/26/23 07:58 11/26/23 07:44 Room Air 11/26/23 04:11 Room Air 11/26/23 01:12 PG Care Time/CCT Total # of Minutes Spent Total Time Spent with Patient: Total time spent is greater than 50% in coordination of care (as documented) at patient's floor/unit and/or counseling patient: Coding Level of Care Code 12762 SUB INP/OBS CARE 2/35MIN Diagnoses Pseudomonas aeruginosa infection A49.8 Bleeding from wound T14.8XXA S/P urological surgery Z98.890 Infection of penile implant T83.61XA
--- NOTE | 2023-11-26 16:23 | Hospitalist Progress Note ---
Date of Service November 26, 2023 Assessment & Plan (1) Pseudomonas aeruginosa infection: Plan: On 11/21/23 patient underwent exploration of Scrotum/Penis, Washout of wound, Explantation of an infected penile Implant, Cystoscopy, and catheter placement. This procedure was done due to an infected, nonfunctioning penile implant. 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 Intra-op culture grew pseudomonas. Was sent home with levaquin. However, his pseudomonas is quinolone resistant. Place US guided PIV (or midline if necessary), will plan on 14d total course of cefepime Discused with urology - ok to resume DOAC They plan drain removal prior to discharge Discussed with care coord - has bed at [facility] Updated his daughter Yasir by phone 11/26 [address] follow up with Dr. Rene 12/03 (2) Infection of penile implant: Plan: 11/21/23 - explantation of such see #1 above (3) S/P urological surgery: Plan: see #1 above had bleeding from the scrotal incision/wound at home - none seen while here, and H/H are very stable resume apixaban (4) Benign prostatic hyperplasia with lower urinary tract symptoms: Plan: Continue Proscar, tamsulosin Bowman in place (5) Atrial fibrillation with slow ventricular response: Plan: Pacing on monitor Continue metoprolol, apixaban (6) Hypertension: Plan: Resume metoprolol succ Resume SIMA on discharge (7) Obstructive sleep apnea: Plan: Suspected By report he has an upcoming home sleep study? (8) Kyphoscoliosis: Plan: Chronic; no issues Denied any pain Admission and Anticipated Discharge Date Admission Date: November 24, 2023 Subjective doing pretty well, constipated, has some nasal or throat congestion but no cough or shortness of breath Physical Exam 2 Physical Exam: PHYSICAL EXAMINATION Last 24h vital signs reviewed, see documentation in flowsheet General: comfortable appearing, no distress HEENT: Normocephalic, atraumatic, pupils round and equal, sclerae anicteric, no conjunctival injection, moist mucus membranes Lungs: Normal respiratory effort. Clear to auscultation bilaterally. No RRW Heart: Regular rate and rhythm, systolic murmur. No JVD Abdomen: Soft, nontender, nondistended. Bowel sounds present. Bowman catheter none bloody yellow urine Extremities: Warm, dry, well-perfused. No extremity edema. Neuro: Alert and oriented x 4, face symmetric, moves 4 extremities well Psych: Normal affect and behavior Results & Data Results & Data Vital Signs (Past 12 Hours) Vital Signs Temp Pulse Pulse Pulse Resp BP Pulse Ox 11/26/23 15:38 36.8 C 69 16 120/75 91 11/26/23 12:56 37.3 C 76 21 121/71 94 11/26/23 10:28 36.8 C 80 22 124/71 95 11/26/23 07:58 63 11/26/23 07:44 36.9 C 78 18 118/71 92 O2 Del Method 11/26/23 15:38 Room Air 11/26/23 12:56 Room Air 11/26/23 10:28 Room Air 11/26/23 07:58 11/26/23 07:44 Room Air Laboratory Results 11/26/23 05:45 11/26/23 05:45 PG Care Time/CCT Total # of Minutes Spent Total Time Spent with Patient: Total time spent is greater than 50% in coordination of care (as documented) at patient's floor/unit and/or counseling patient: Coding Level of Care Code 80007 SUB INP/OBS CARE 2/35MIN Diagnoses Pseudomonas aeruginosa infection A49.8 Infection of penile implant T83.61XA S/P urological surgery Z98.890 Benign prostatic hyperplasia with lower urinary tract symptoms N40.1 Atrial fibrillation with slow ventricular response I48.91 Primary hypertension I10 Hypertension type: primary hypertension Obstructive sleep apnea G47.33 Kyphoscoliosis M41.9 (6) Hypertension Hypertension type: primary hypertension Qualified Code(s): I10 - Essential (primary) hypertension
[2023-11-26] MEDS: DOCUSATE SODIUM 100 MG CAP PO PRN (16:53)
[2023-11-26] MEDS: POLYETHYLENE (MIRALAX) 17 GM PACK PO PRN (16:53)
[2023-11-26] MEDS: ATORVASTATIN 20 MG TAB PO SCH (20:32)
[2023-11-26] MEDS: METOPROLOL SUCC 25MG EXT REL TAB PO SCH (20:32)
[2023-11-26] MEDS: APIXABAN 5 MG TABLET PO SCH (20:32)
[2023-11-27] MEDS: guaiFENesin/DEXTROM SYRUP 100MG/10MG 5ML UDC PO ONE (01:13)
[2023-11-27 06:17] LABS: Basophils # (auto) 0.03 K/uL (0.00-0.20); Basophils % (auto) 0.3 %; Eosinophils # (auto) 0.26 K/uL (0.00-0.50); Eosinophils % (auto) 2.3 %; Hematocrit (blood only) 34.1 % (42.0-52.0); Hemoglobin 11.3 g/dl (14.0-18.0); Immature Granulocytes # (auto) 0.06 K/uL (0.01-0.20); Immature Granulocytes % (auto) 0.5 %; Lymphocytes # (auto) 0.81 K/uL (1.20-3.40); Lymphocytes % (auto) 7.1 %; Mean Corpuscular Hemoglobin 29.5 pg (25.0-34.0); Mean Corpuscular Hgb Conc 33.1 g/dL (32.0-36.0); Mean Platelet Volume 9.2 fL (9.4-12.4); Monocytes # (auto) 1.24 K/uL (0.11-0.59); Monocytes % (auto) 10.9 %; Neutrophils # (auto) 8.93 K/uL (1.40-6.50); Neutrophils % (auto) 78.9 %; Platelet Count 230 K/uL (130-400); RDW Coefficient of Variation 15.8 % (11.5-14.5); RDW Standard Deviation 51.7 fL (36.4-46.3); Red Blood Count 3.83 M/uL (4.70-6.10); White Blood Count 11.33 K/ul (4.8-10.8)
[2023-11-27 06:27] LABS: BUN Creatinine Ratio 30.2 (10-20); Calcium 9.7 mg/dl (8.6-10.3); Creatinine Clr Calc Pharmacy 79.5 ml/min; Est GFR (African American) 101.3 ml/min; Est GFR (Non-African American) 87.4 ml/min; Potassium 4.1 mmol/L (3.5-5.1)
--- NOTE | 2023-11-27 09:24 | Urology Progress Note ---
Date of Service November 27, 2023 Assessment & Plan (1) Pseudomonas aeruginosa infection: (2) Bleeding from wound: (3) S/P urological surgery: (4) Infection of penile implant: Plan 88yo M who is s/p Exploration of Scrotum/Penis, Washout of wound, Explantation of penile Implant, Cystoscopy, and catheter placement on 11/21/[address] Wayne for removal of infected and nonfunctioning penile implant. Patients became concerned that the CLARKE drain was occluded and had noted a large amount of bloody drainage around drain site. He was on Levofloxacin outpatient. Wound culture on 11/21/2023 grew Pseudomonas resistant to fluoroquinolones. - Afebrile and hemodynamically stable. - Labs reviewedwhite count 11.33, hemoglobin stable 11.3, creatinine 0.63. - Wound culture on 11/21/2023 grew Pseudomonas resistant to fluoroquinolones. - On IV cefepime per culture sensitivities. - Bowman intact and draining clear yellow urine. - CLARKE drain with minimal serosanguineous drainage. Continue to monitor. - No plan for urological intervention. - Continue supportive care. - Continue IV antibiotic therapy. Pt likely being discharged to [facility] with plan for 14d total course of IV Cefepime. - Continue Bowman catheter. - Maintain CLARKE drain for now with plans for removal prior to discharge. - Pt had some bleeding from scrotal incision at home but non seen while here. Apply/change dressing to drain site as needed. - OK to resume anticoagulation from standpoint. - Plan to f/u next week with urology outpatient as scheduled. - Urology will follow. Please call with any questions or concerns. Admission and Anticipated Discharge Date Admission Date: November 24, 2023 Subjective Pt examined at bedside this AM. Awake, resting in bed on arrival. No acute distress. Bowman draining clear yellow urine. CLARKE drain with small amount of serosanguineous drainage. Denies f/c/n/v. Denies any pain or discomfort at present. Reports some nasal congestion. Denies CP/SOB. Review of Systems Constitutional: as per Subjective / HPI Genitourinary: + as per Subjective / HPI Physical Exam Constitutional: no acute distress Respiratory: no respiratory distress and no labored breathing Gastrointestinal (Abdomen): Percussion/Palpation: abdomen soft; abdomen nontender Musculoskeletal: Head/Neck/Chest: normocephalic Skin: No visible rashes or lesions to exposed skin areas Neurologic: moves all extremities and awake Psychiatric: A+Ox3, euthymic affect Genitourinary: Bowman intact and draining clear yellow urine CLARKE drain intact with minimal serosanguineous drainage Scrotal surgical site intact with sutures. Minimal erythema and edema. No drainage appreciated on exam. No fluctuance or crepitus. No tenderness with palpation. Results & Data Vital Signs (Past 12 Hours) Vital Signs Temp Pulse Pulse Resp BP BP Pulse Ox 11/27/23 07:28 36.4 C L 66 20 117/68 92 11/27/23 05:57 67 11/27/23 04:21 36.8 C 71 18 109/68 92 11/26/23 22:56 37.4 C 63 18 121/68 92 O2 Del Method 11/27/23 07:28 Room Air 11/27/23 05:57 11/27/23 04:21 Room Air 11/26/23 22:56 Room Air PG Care Time/CCT Total # of Minutes Spent Total Time Spent with Patient: Total time spent is greater than 50% in coordination of care (as documented) at patient's floor/unit and/or counseling patient: Coding Level of Care Code 27982 SUB INP/OBS CARE 2/35MIN Diagnoses Pseudomonas aeruginosa infection A49.8 Bleeding from wound T14.8XXA S/P urological surgery Z98.890 Infection of penile implant T83.61XA
--- NOTE | 2023-11-27 11:07 | Discharge Summary ---
Date of Service November 27, 2023 Admission HPI Per Admitting Provider Joni is an 88yo male with PMH of BPH, HLD, syncope, A-fib, heart failure, MARCE, and HTN. He presented due to bleeding concern on 11/24 from a recent surgical site drain. Urologic procedure on 11/21 for removal of infected, nonfunctioning penile implant. Patient denies pain at the drain site. He reports that he took all of his regular morning medications this morning, including Eliquis. He does note that he has been holding metoprolol and lisinopril since his procedure. Of note, the patient also has been on both levofloxacin and ciprofloxacin post procedure. He denies any hematuria since his procedure. Fuentes has been in place since procedure without blockages. No at home oxygen use. No sick contacts. Patient notes he has sleep apnea, but is set to have a home sleep study. Patient denies smoking, tobacco use, and alcohol use. Patient was 91% on RA at time of admission; vitals otherwise stable. ED course: ROS: Patient endorses bleeding from surgical site. Patient denies fever, chills, nightsweats, dizzy, lightheadedness, [place], chest pain, SOB, abdominal pain, N/V/D, no burning sensation in genitals, hematuria, new back pain, or N/T in legs. Principal Diagnosis pseudomonas infection of penile implant Discharge Exam PHYSICAL EXAMINATION Last 24h vital signs reviewed, see documentation in flowsheet General: comfortable appearing, no distress HEENT: Normocephalic, atraumatic, pupils round and equal, sclerae anicteric, no conjunctival injection, moist mucus membranes Lungs: Normal respiratory effort. Clear to auscultation bilaterally. No RRW Heart: Regular rate and rhythm, systolic murmur. No JVD Abdomen: Soft, nontender, nondistended. Bowel sounds present. Fuentes catheter none bloody yellow urine. penis without redness inflammation or swelling Extremities: Warm, dry, well-perfused. No extremity edema. Neuro: Alert and oriented x 4, face symmetric, moves 4 extremities well Psych: Normal affect and behavior Discharge Data Allergies Allergy/AdvReac Type Severity Reaction Status Date / Time No Known Allergies Allergy Verified 11/21/23 07:58 Consultations 11/24/23 16:39 ED Decision to Admit Stat 11/24/23 17:07 Consult Urology Routine Hospital Course (1) Pseudomonas aeruginosa infection: On 11/21/23 patient underwent exploration of Scrotum/Penis, Washout of wound, Explantation of an infected penile Implant, Cystoscopy, and catheter placement. This procedure was done due to an infected, nonfunctioning penile implant. 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 Intra-op culture grew pseudomonas. Was sent home with levaquin. However, his pseudomonas is quinolone resistant. No oral options available so started on IV cefepime Urology consulted this admission - appears to be healing well, CLARKE drain removed prior to discharge, leave fuentes in place until removed per urologist - has urology appointment next week Placed US guided PIV, will plan on 14d total course of cefepime (last dose evening of 12/08/23) Updated his daughter Quita by phone 11/[address] follow up with Dr. Rene 12/03 (2) Infection of penile implant: 11/21/23 - explantation of such see #1 above (3) S/P urological surgery: see #1 above had bleeding from the scrotal incision/wound at home - none seen while here, and H/H are very stable, tolerated resumption of DOAC (4) Benign prostatic hyperplasia with lower urinary tract symptoms: Continue Proscar, tamsulosin Fuentes in place (5) Atrial fibrillation with slow ventricular response: Pacing on monitor Continue metoprolol, apixaban (6) Hypertension: Resumed metoprolol succ Resumed SIMA on discharge (7) Obstructive sleep apnea: Suspected By report he had an upcoming home sleep study, which he will need to reschedule (8) Kyphoscoliosis: Chronic; no issues Denied any pain Total Time Total Time Spent Total Time Spent (In Minutes): I personally spent: 40 minutes today on clinical care activities including: reviewing chart notes and vital signs reviewing labs discussion with care mgr, bedside RN, clinical pharmacist examining and counseling the patient writing orders documentation Discharge Plan Discharge Items Patient Disposition: Transfer Inpatient Rehab Fac Reason For Visit: BLEEDING SURGICAL SITE Discharge Diagnosis: pseudomonas infection of penile implant (which has been removed) Condition on Discharge: Good Activity: Resume your previous activity Non-emergency contact: Primary Care Provider and Urologist Call non-emergency contact if: you have any medication questions, your symptoms worsen, you have a fever, your wound has increased redness, your wound has increased drainage and your wound pain has increased Follow-up/Referrals: Cristo Wayne DO [Physician] - 12/03/23 9:45 am James Chapman DO [Primary Care Provider] - Kyletl Attending Provider Instructions: PT and OT evaluate and treat Change penile / groin dressing as needed Treat with cefepime 2g IV q8h through evening dose 12/08/23 (completes 14d course) Please check CBC with diff, CMP on Saturday 12/02 for IV antibiotics monitoring Please remove ultrasound-guided PIV in right arm once IV antibiotics completed Leave urinary catheter in place - has appt with urologist 12/03 Bree Line Dancer Provider Instructions: You are scheduled for follow-up with Dr. Wayne on 12/03/23. Please call the urology office at [phone] with any questions, concerns or need to reschedule appointments for any reason. We are happy to assist you. Pending Studies at Discharge: No Stand-Alone Forms: My [facility] Skilled Items Patient informed of condition?: Yes DNR: Yes Discharge Level of Care: Acute rehab Communicable Disease: No Discharge Prognosis: Improving Lines: US Guided Peripheral IV Urinary Catheter: Yes Medications and DC Order Prescriptions: New acetaminophen 325 mg Tablet 650 mg PO Q4H PRN (Reason: fever or pain) Qty: 0 0RF cefepime 2 gram recon soln 2 g IV Q8H Rx Instructions: continue through evening dose 12/08/23, which completes 14d total therapy Continued melatonin 3 mg capsule 3 mg PO HS Eliquis 5 mg Tablet 5 mg PO BID Qty: 60 0RF atorvastatin 20 mg tablet 20 mg PO HS Qty: 30 0RF metoprolol succinate 50 mg tablet extended release 24 hr 25 mg PO HS Qty: 15 0RF tamsulosin 0.4 mg capsule 0.4 mg PO QAM finasteride 5 mg tablet 5 mg PO QAM cholecalciferol (vitamin D3) 50 mcg (2,000 unit) capsule 50 mcg PO QAM lisinopril 2.5 mg Tablet 2.5 mg PO QPM Hold Instructions: Resume on 12/13/23. Hold until f/u with PCP for further instruction Changed polyethylene glycol 3350 [Miralax] 17 gram powder in packet 17 g PO DAILY PRN (Reason: Constipation) Qty: 14 0RF sennosides [Senokot] 8.6 mg tablet 8.6 mg PO DAILY PRN (Reason: Constipation) Qty: 1 0RF Discontinued docusate sodium 100 mg capsule 100 mg PO UD PRN (Reason: Constipation) mupirocin 2 % ointment 1 applic topical DAILY levofloxacin 500 mg tablet 500 mg PO DAILY 7 Days Qty: 7 0RF Discharge Orders: Discharge Order (Routine); Ordered 11/27/23 Ordered By: Annika Alegria Admission Data Admit Date/Time: 11/24/23 18:09 Attending Provider: Annika Alegria Admit Provider: Jon Maya Primary Care Provider: James Chapman Other Providers: Jon Maya; Michael Vernon Coding Level of Care Code 09287 INP/OBS DISCH >30 MIN Diagnoses Pseudomonas aeruginosa infection A49.8 Infection of penile implant T83.61XA S/P urological surgery Z98.890 Benign prostatic hyperplasia with lower urinary tract symptoms N40.1 Atrial fibrillation with slow ventricular response I48.91 Primary hypertension I10 Hypertension type: primary hypertension Obstructive sleep apnea G47.33 Kyphoscoliosis M41.9
[2023-11-27] MEDS ORDERED: CEFEPIME 2,000 MG in SYRINGE 0 ML IV SCH (17:00)
== END 2023-11-27 14:35 | DRG 673 ==
LOC: ED 14:25 → SUATTDRO 18:09 → EDINP 18:09 → 2N 11-25 00:47